=== PATIENT | female | born 1945 | race Caucasian/White ===

== ENCOUNTER 2017-01-18 10:48 | Emergency (ER) | payer BC ==
[~2017-01-18] VITALS: Ht 162.6 cm; Wt 91.4 kg
[~2017-01-18 10:48] MED LIST: BUPR-79 PO; CETI10TA10 PO; CHOL2000 PO; HYDC25 PO; LISI-729 PO; PARO1TAB27 PO; PRLSR20 PO; TRIA1SPR2 NAE
[2017-01-18 10:56] VITALS: TEMP 36.7; Ht 162.6 cm; Wt 91.4 kg
[2017-01-18] MEDS ORDERED: SODIUM CHLORIDE 0.9% 1000ML 1,000 ML IV STA (11:15)
[2017-01-18] MEDS ORDERED: CHOLESTYRAMINE LIGHT 4 GM PKT PO STA (11:15)
[2017-01-18] MEDS ORDERED: ONDANSETRON INJ 2 MG/ML 2 ML VIAL IV STA (11:15)
[2017-01-18] MEDS ORDERED: TRIA1SPR4 NAE (11:26)
[2017-01-18] MEDS ORDERED: VNTHFA/IN INH (11:26)
[2017-01-18] MEDS ORDERED: SYMIN160 INH (11:26)
[2017-01-18] MEDS ORDERED: OMEG10007 PO (11:26)
[2017-01-18] MEDS ORDERED: PRAV40TA2 PO (11:26)
[2017-01-18] MEDS ORDERED: LISI-461 PO (11:26)
[2017-01-18] MEDS ORDERED: HYDR25TA5 PO (11:26)
[2017-01-18] MEDS ORDERED: ALBU18002 INH (11:26)
[2017-01-18] MEDS ORDERED: PRX/40 PO (11:26)
--- NOTE | 2017-01-18 11:36 | EMERGENCY ROOM VISIT NOTE ---
History Report prepared by Sherman: Jeremy Darling Under the Supervision of: Dr. Carlyle Srivastava M.D. First contact with patient: 11:02 Chief Complaint: DIARRHEA Stated Complaint: DIARRHEA Nursing Triage Summary: Pt reports diarrhea since Sunday, has been black but wasn't this morning, denies abdominal pain today, did have it last night "it was cramping like I just knew I had to go to the bathroom". Patient associated nausea and loss of appetite. Denies use of blood thinners except fish oil History of Present Illness The patient is a 71 year old female who presents to the Emergency Room with complaints of intermittent diarrhea for the past two days. She states that she is having diarrhea more than once every hour. Additionally, the patient states that she was having some abdominal pain. She denies taking any recent antibiotics, and she states that no one else around her is sick. She states that she has not had any questionable food sources. Source of History: patient Onset: two days ago Position: other (global) Quality: other (diarrhea) Timing: intermittent Associated Symptoms: + abdominal pain Review of Systems See HPI for pertinent positives & negatives. A total of 10 systems reviewed and were otherwise negative. Past Medical & Surgical Medical Problems: (1) Benign essential hypertension (2) DIAB ZHEN WO COMPL, TYPE II OR UNSPEC TYPE, NOT UNCNTRLD (3) Gastroesophageal reflux disease (4) History of polyp of colon (5) Hyperlipidemia (6) Spinal stenosis of lumbar region Family History Diabetes mellitus Social History Smoking Status: Former Smoker Alcohol Use: occasionally Drug Use: none Marital Status: Occupation Status: unemployed Current/Historical Medications Scheduled Albuterol Hfa (Ventolin Hfa), 2 PUFFS INH QID Budesonide/Formoterol Fumarate (Symbicort 160/4.5 Inhaler), 2 PUFFS INH BID Bupropion (Wellbutrin Sr), 150 MG PO BID Cetirizine Hcl (Zyrtec), 10 MG PO QAM Fish Oil (Sherwood-3), 1 CAP PO DAILY Hydrochlorothiazide (Hydrochlorothiazide), 12.5 MG PO DAILY Lisinopril (Lisinopril), 1 TAB PO DAILY Omeprazole (Prilosec), 20 MG PO QAM Paroxetine (Paroxetine HCl), 1 TAB PO DAILY Pravastatin Sodium (Pravastatin Sodium), 1 TAB PO DAILY Triamcinolone Acetonide (Nasal (Nasacort Allergy 24Hr), 1 SPRAY SEBLE DAILY Allergies Coded Allergies: Quetiapine (Verified Adverse Reaction, Severe, N/V, 01/18/17) Uncoded Allergies: EPIDURAL (Allergy, Severe, SEVERE ITCHING EVERYWHERE, 06/15/11) CHASE ALVARADO, NOTES NO ALLERGIES PER HER H&P ON 06/15/11. GP Physical Exam Vital Signs Date Time Temp Pulse Resp B/P (MAP) Pulse Ox O2 Delivery O2 Flow Rate FiO2 01/18/17 14:07 87 20 133/68 99 01/18/17 13:13 84 20 152/73 98 Room Air 01/18/17 13:05 86 01/18/17 10:56 36.7 101 20 114/71 95 Room Air Physical Exam GENERAL: Patient is a healthy-appearing well-nourished female HEAD: Normocephalic atraumatic EYES: Ocular movements intact pupils equal and react to light OROPHARYNX mucous membranes are moist no exudates present no erythema or edema present NECK: Supple no nuchal rigidity CHEST: Good equal expansion LUNGS: Clear and equal to auscultation CARDIAC: Normal S1 and S2 ABDOMEN: Soft nontender no guarding BACK: No CVA tenderness EXTREMITIES: No pain upon palpation normal muscle strength in all groups no clubbing cyanosis or edema NEURO: Patient is following commands and answering questions appropriately. Alert and oriented x3 Cranial Nerves 2-12 grossly intact Medical Decision & Procedures Laboratory Results 01/18/17 11:44 Red Blood Count 4.33, Mean Corpuscular Volume 91.5, Mean Corpuscular Hemoglobin 31.6, Mean Corpuscular Hemoglobin Concent 34.6, Mean Platelet Volume 9.5, Neutrophils (%) (Auto) 72.4, Lymphocytes (%) (Auto) 17.3, Monocytes (%) (Auto) 9.6, Eosinophils (%) (Auto) 0.3, Basophils (%) (Auto) 0.3, Neutrophils # (Auto) 5.14, Lymphocytes # (Auto) 1.23, Monocytes # (Auto) 0.68, Eosinophils # (Auto) 0.02, Basophils # (Auto) 0.02 01/18/17 11:44 Test 01/18/17 11:44 01/18/17 13:15 White Blood Count 7.10 K/uL (4.8-10.8) Red Blood Count 4.33 M/uL (4.2-5.4) Hemoglobin 13.7 g/dL (12.0-16.0) Hematocrit 39.6 % (37-47) Mean Corpuscular Volume 91.5 fL (80-100) Mean Corpuscular Hemoglobin 31.6 pg (25-34) Mean Corpuscular Hemoglobin Concent 34.6 g/dl (32-36) Platelet Count 277 K/uL (130-400) Mean Platelet Volume 9.5 fL (7.4-10.4) Neutrophils (%) (Auto) 72.4 % Lymphocytes (%) (Auto) 17.3 % Monocytes (%) (Auto) 9.6 % Eosinophils (%) (Auto) 0.3 % Basophils (%) (Auto) 0.3 % Neutrophils # (Auto) 5.14 K/uL (1.4-6.5) Lymphocytes # (Auto) 1.23 K/uL (1.2-3.4) Monocytes # (Auto) 0.68 K/uL (0.11-0.59) Eosinophils # (Auto) 0.02 K/uL (0-0.5) Basophils # (Auto) 0.02 K/uL (0-0.2) RDW Standard Deviation 50.0 fL (36.4-46.3) RDW Coefficient of Variation 14.8 % (11.5-14.5) Immature Granulocyte % (Auto) 0.1 % Immature Granulocyte # (Auto) 0.01 K/uL (0.00-0.02) Anion Gap 8.0 mmol/L (3-11) Est Creatinine Clear Calc Drug Dose 81.9 ml/min Estimated GFR () 100.7 Estimated GFR (Non- 86.9 BUN/Creatinine Ratio 22.0 (10-20) Calcium Level 8.8 mg/dl (8.5-10.1) Total Bilirubin 0.4 mg/dl (0.2-1) Direct Bilirubin 0.1 mg/dl (0-0.2) Aspartate Amino Transf (AST/SGOT) 17 U/L (15-37) Alanine Aminotransferase (ALT/SGPT) 42 U/L (12-78) Alkaline Phosphatase 121 U/L (45-117) Total Protein 7.6 gm/dl (6.4-8.2) Albumin 3.6 gm/dl (3.4-5.0) Lipase 189 U/L (73-393) Urine Color DK YELLOW Urine Appearance CLEAR (CLEAR) Urine pH 5.5 (4.5-7.5) Urine Specific [employer] 1.023 (1.000-1.030) Urine Protein NEG (NEG) Urine Glucose (UA) NEG (NEG) Urine Ketones NEG (NEG) Urine Occult Blood 1+ (NEG) Urine Nitrite POS (NEG) Urine Bilirubin NEG (NEG) Urine Urobilinogen NEG (NEG) Urine Leukocyte Esterase TRACE (NEG) Urine WBC (Auto) 5-10 /hpf (0-5) Urine RBC (Auto) 10-30 /hpf (0-4) Urine Hyaline Casts (Auto) 1-5 /lpf (0-5) Urine Epithelial Cells (Auto) 10-20 /lpf (0-5) Urine Bacteria (Auto) 4+ (NEG) Labs reviewed by ED physician. Medications Administered Medications (Trade) Dose Ordered Sig/Evelyn Route Start Time Stop Time Status Last Admin Dose Admin Sodium Chloride 1,000 ml @ 999 mls/hr Q1H1M STAT IV 01/18/17 11:15 01/18/17 12:15 DC 01/18/17 11:50 999 MLS/HR Ondansetron HCl (Zofran Inj) 4 mg NOW STAT IV 01/18/17 11:15 01/18/17 11:17 DC 01/18/17 11:50 4 MG ED Course 1102: Past medical records reviewed. The patient was evaluated in room C7. A complete history and physical examination was performed. 1115: Zofran Inj 4mg IV, Sodium Chloride 1000 ml @ 999 mls/hr IV 1259: Upon reexamination the patient is feeling well. I discussed results and treatment plan with the patient. She verbalizes agreement and understanding. The patient is ready for discharge. Medical Decision Differential diagnosis: Etiologies such as appendicitis, diverticulitis, PUD, biliary pathology, UTI, pancreatitis, obstruction, mesenteric ischemia, aortic pathology, infections, inflammatory bowel disease, renal colic, as well as others were entertained. Blood Pressure Screening: Patient was found to have normal blood pressure on screening and does not require follow up. Medication Reconciliation: I attest that I have personally reviewed the patient' s current medication list This is a 71-year-old female who presents emergency department complaining of diarrhea. I will note that the three-hour time. The patient wasn't able to provide a stool sample entire time she was in the emergency department. In addition she has a normal CBC normal renal profile normal liver profile. His. She wishes to be discharged home. She was given cholestyramine normal saline bolus. Serial abdominal examinations were performed on the patient in the emergency department and no tended patient exhibit a surgical abdomen. I do feel that the patient is well enough to be discharged home. Patient was in agreement with the treatment plan. Impression Primary Impression: Diarrhea Scribe Attestation The scribe's documentation has been prepared under my direction and personally reviewed by me in its entirety. I confirm that the note above accurately reflects all work, treatment, procedures, and medical decision making performed by me. Departure Information Dispostion Home / Self-Care Referrals No Doctor, Assigned (PCP) Forms HOME CARE DOCUMENTATION FORM, IMPORTANT VISIT INFORMATION, WORK / SCHOOL INSTRUCTIONS Patient Instructions ED Vomiting Diarrhea Nonspecific Ad, My [facility] Additional Instructions Take probiotics for diarrhea Culture results are usually available in approx 48 hours You have been examined and treated today on an emergency basis only. This is not a substitute for, or an effort to provide, complete comprehensive medical care. It is impossible to recognize and treat all injuries or illnesses in a single emergency department visit. It is therefore important that you follow up closely with Dr Cha. Call as soon as possible for an appointment. Thank you for your time and consideration. I look forward to speaking with you again soon. Please don't hesitate to call us if you have any questions. Problem Qualifiers Primary Impression: Diarrhea Diarrhea type: unspecified type Qualified Codes: R19.7 - Diarrhea, unspecified
[2017-01-18 12:00] LABS: BASO % 0.3 %; BASO ABS # 0.02 K/uL (0-0.2); COMPLETE YES; EOS % 0.3 %; HEMATOCRIT 39.6 % (37-47); IG% 0.1 %; LYMPH % 17.3 %; LYMPH ABS # 1.23 K/uL (1.2-3.4); MEAN CELL VOLUME 91.5 fL (80-100); MEAN CORPUSCULAR HEMOGLOBIN 31.6 pg (25-34); MEAN CORPUSCULAR HGB CONC 34.6 g/dl (32-36); MEAN PLATELET VOLUME 9.5 fL (7.4-10.4); MONO % 9.6 %; NEUT % 72.4 %; PLATELET COUNT 277 K/uL (130-400); RED BLOOD COUNT 4.33 M/uL (4.2-5.4)
[2017-01-18 12:32] LABS: CALCIUM 8.8 mg/dl (8.5-10.1); CREATININE 0.71 mg/dl (0.60-1.20); POTASSIUM 3.8 mmol/L (3.5-5.1)
[2017-01-18 13:40] LABS: URINE APPEARANCE CLEAR (CLEAR); URINE BILIRUBIN NEG (NEG); URINE COLOR DK YELLOW; URINE NITRITE POS (NEG); URINE PH 5.5 (4.5-7.5); URINE SPECIFIC GRAVITY 1.023 (1.000-1.030); UROBILINOGEN NEG (NEG)
[2017-01-18 13:43] LABS: MANUAL MICROSCOPIC REQUIRED? NO; REVIEW REQ? NO
[2017-01-18 14:07] VITALS: BP 133/68; PULSE 87; O2SAT 99
[2017-01-19] MEDS ORDERED: CIPR-255 PO (12:31)
[2017-01-19] MEDS ORDERED: METR-163 PO (12:31)
[2017-01-29] MEDS ORDERED: MECL1TAB40 PO (11:39)
== END 2017-01-18 14:08 | disposition home or self-care (01) ==
LOC: C.EDB 10:49 → C.EDC 14:08
DX: R19.7 Diarrhea, unspecified (principal); I10 Essential (primary) hypertension; E11.9 Type 2 diabetes mellitus without complications; E78.5 Hyperlipidemia, unspecified; K21.9 Gastro-esophageal reflux disease without esophagitis; Z87.891 Personal history of nicotine dependence; Z79.899 Other long term (current) drug therapy; Z88.8 Allergy status to other drugs, medicaments and biological substances; Z83.3 Family history of diabetes mellitus

== ENCOUNTER 2017-01-19 06:28 | Emergency (ER) | payer BC ==
[~2017-01-19] VITALS: Ht 162.6 cm; Wt 90.7 kg
[~2017-01-19 06:28] MED LIST changes: -CHOL2000 PO; -HYDC25 PO; +HYDR25TA5 PO; +LISI-461 PO; -LISI-729 PO; +OMEG10007 PO; -PARO1TAB27 PO; +PRAV40TA2 PO; +PRX/40 PO; +SYMIN160 INH; -TRIA1SPR2 NAE; +TRIA1SPR4 NAE; +VNTHFA/IN INH
[2017-01-19 06:35] VITALS: TEMP 36.8; Ht 162.6 cm; Wt 90.7 kg
[2017-01-19] MEDS ORDERED: SODIUM CHLORIDE 0.9% 1000ML 1,000 ML IV STA (06:42)
[2017-01-19 06:53] LABS: BASO % 0.3 %; BASO ABS # 0.02 K/uL (0-0.2); COMPLETE YES; EOS % 0.6 %; HEMATOCRIT 38.7 % (37-47); LYMPH % 39.5 %; LYMPH ABS # 2.51 K/uL (1.2-3.4); MEAN CELL VOLUME 90.6 fL (80-100); MEAN CORPUSCULAR HEMOGLOBIN 30.7 pg (25-34); MEAN CORPUSCULAR HGB CONC 33.9 g/dl (32-36); MEAN PLATELET VOLUME 9.4 fL (7.4-10.4); MONO % 10.8 %; NEUT % 48.8 %; PLATELET COUNT 313 K/uL (130-400); RED BLOOD COUNT 4.27 M/uL (4.2-5.4); WHITE BLOOD COUNT 6.36 K/uL (4.8-10.8)
[2017-01-19] MEDS ORDERED: OPTIRAY 320 IV PRN (07:00)
[2017-01-19 07:02] LABS: PROTHROMBIN TIME (PATIENT) 10.9 SECONDS (9.0-12.0)
[2017-01-19 07:05] LABS: ALT/SGPT 41 U/L (12-78); BLOOD UREA NITROGEN 17 mg/dl (7-18); CALCIUM 9.3 mg/dl (8.5-10.1); CARBON DIOXIDE 23 mmol/L (21-32); CHLORIDE 106 mmol/L (98-107); CREATININE 0.79 mg/dl (0.60-1.20); GLUCOSE 133 mg/dl (70-99); POTASSIUM 3.7 mmol/L (3.5-5.1); SODIUM 138 mmol/L (136-145)
[2017-01-19 07:10] LABS: ALKALINE PHOSPHATASE 111 U/L (45-117); AST/SGOT 22 U/L (15-37)
--- NOTE | 2017-01-19 08:16 | DIAGNOSTIC IMAGING REPORT ---
CT ABD/PELVIS IV CONTRAST ONLY CLINICAL HISTORY: bloody diarrhea COMPARISON STUDY: None. TECHNIQUE: Following the IV administration of 118 mL of Optiray-320, CT scan of the abdomen and pelvis was performed from the lung bases to the proximal femurs. Images are reviewed in the axial, sagittal, and coronal planes. IV contrast was administered without complication. CT DOSE: 924.60 mGy.cm FINDINGS: Lower chest: There are dependent bibasilar opacities, likely atelectatic. Liver: There is a 9 mm hypodensity within the right lobe of the liver. This approaches water attenuation and is likely benign. Gallbladder: Unremarkable. Spleen: Normal in size and attenuation. Pancreas: Unremarkable. Adrenal glands: Unremarkable. Kidneys: There is symmetric renal cortical enhancement. The kidneys are normal in size without hydronephrosis. Bowel: There are no transition zones indicate bowel obstruction. There is scattered colonic diverticula present. There are no findings to indicate acute appendicitis. There is mild colonic wall thickening, most pronounced within the left colon. The findings are indicative of a nonspecific colitis. Peritoneum: There is no intraperitoneal free air or abdominal ascites. Vasculature: The abdominal aorta is normal in course and caliber. Adenopathy: None. Pelvic viscera: The uterus appears surgically absent. Skeletal structures: There are postsurgical changes of a lumbar spinal fusion. IMPRESSION: 1. No evidence of bowel obstruction. No evidence of free air 2. Mild colonic wall thickening, most pronounced in the left colon. The findings are indicative of a nonspecific colitis. Electronically signed by: Malik Glover M.D. 01/19/2017 8:15 AM Dictated Date/Time: 01/19/2017 8:11 AM
[2017-01-19] MEDS ORDERED: SODIUM CHLORIDE 0.9% 500ML 500 ML IV STA (09:07)
[2017-01-19 10:50] LABS: MANUAL MICROSCOPIC REQUIRED? NO; REVIEW REQ? NO; URINE APPEARANCE CLEAR (CLEAR); URINE BILIRUBIN NEG (NEG); URINE COLOR YELLOW; URINE NITRITE POS (NEG); URINE SPECIFIC GRAVITY > 1.045 (1.000-1.030); UROBILINOGEN NEG (NEG)
[2017-01-19 11:12] VITALS: O2SAT 88
[2017-01-19] MEDS ORDERED: CIPROFLOXACIN 500 MG TAB PO STA (12:26)
[2017-01-19] MEDS ORDERED: METRONIDAZOLE 250 MG TAB PO STA (12:26)
[2017-01-19] MEDS ORDERED: CIPR-255 PO (12:31)
[2017-01-19] MEDS ORDERED: METR-163 PO (12:31)
[2017-01-19 12:43] VITALS: BP 135/60; PULSE 74; O2SAT 97
--- NOTE | 2017-01-19 15:36 | EMERGENCY ROOM VISIT NOTE ---
History Report prepared by Vicenteibqian: Morris Conteh Under the Supervision of: Dr. Gary Bass M.D. First contact with patient: 06:37 Chief Complaint: GI ASSESSMENT Stated Complaint: GI BLEED Nursing Triage Summary: c/o black liquid stools on sunday. pt was seen here yesterday and sent home. pt woke up this am and her depends was full of black stool. pt also reports "It feels like there is a ball in my rectum." History of Present Illness The patient is a 71 year old female who presents to the Emergency Room with complaints of persistent rectal bleeding beginning three days ago. She describes the color of her stool as "black". She notes that she took Pepto Bismol two days ago, but this was after her symptoms began. The patient also states "there is a ball coming out of my rectum". She also complains of dizziness, diarrhea and abdominal pain. She notes that her dizziness is chronic for which she takes Meclizine. The patient was seen in the ED yesterday for diarrhea and states that her symptoms are "the exact same". Pt denies LOC, headache, fevers, chills, diaphoresis, visual changes, neck pain, chest pain, breathing difficulties, nausea, vomiting, back pain, urinary symptoms, numbness , weakness, lymphadenopathy, rash, or other complaints. Source of History: patient Onset: Three days ago Position: other (rectum) Quality: other (bleeding) Timing: other (persistent) Associated Symptoms: + abdominal pain, + diarrhea, No fevers, No headache, No chest pain, No SOB, No nausea, No vomiting Review of Systems See HPI for pertinent positives and negatives. A total of ten systems were reviewed and were otherwise negative. Past Medical & Surgical Medical Problems: (1) Benign essential hypertension (2) DIAB ZHEN WO COMPL, TYPE II OR UNSPEC TYPE, NOT UNCNTRLD (3) Gastroesophageal reflux disease (4) History of polyp of colon (5) Hyperlipidemia (6) Spinal stenosis of lumbar region Family History Diabetes mellitus Social History Smoking Status: Former Smoker Alcohol Use: occasionally Drug Use: none Marital Status: Occupation Status: unemployed Current/Historical Medications Scheduled Albuterol Hfa (Ventolin Hfa), 2 PUFFS INH QID Budesonide/Formoterol Fumarate (Symbicort 160/4.5 Inhaler), 2 PUFFS INH BID Bupropion (Wellbutrin Sr), 150 MG PO BID Cetirizine Hcl (Zyrtec), 10 MG PO QAM Ciprofloxacin Hcl (Cipro), 500 MG PO BID Fish Oil ([place]-3), 1 CAP PO DAILY Hydrochlorothiazide (Hydrochlorothiazide), 12.5 MG PO DAILY Lisinopril (Lisinopril), 1 TAB PO DAILY Metronidazole (Flagyl), 500 MG PO TID Omeprazole (Prilosec), 20 MG PO QAM Paroxetine (Paroxetine HCl), 1 TAB PO DAILY Pravastatin Sodium (Pravastatin Sodium), 1 TAB PO DAILY Triamcinolone Acetonide (Nasal (Nasacort Allergy 24Hr), 1 SPRAY SEBLE DAILY Allergies Coded Allergies: Quetiapine (Verified Adverse Reaction, Severe, N/V, 01/19/17) Uncoded Allergies: EPIDURAL (Allergy, Severe, SEVERE ITCHING EVERYWHERE, 06/15/11) CHASE ALVARADO, NOTES NO ALLERGIES PER HER H&P ON 06/15/11. GP Physical Exam Vital Signs Date Time Temp Pulse Resp B/P (MAP) Pulse Ox O2 Delivery O2 Flow Rate FiO2 01/19/17 12:43 74 16 135/60 97 01/19/17 11:12 93 Nasal Cannula 2.0 01/19/17 11:12 88 Room Air 01/19/17 10:13 84 19 96 Room Air 01/19/17 10:08 154/85 01/19/17 09:43 81 17 92 01/19/17 09:13 79 17 01/19/17 08:43 82 18 94 01/19/17 08:38 82 17 93 Room Air 01/19/17 08:33 80 20 94 Room Air 01/19/17 08:28 81 16 93 Room Air 01/19/17 08:23 83 15 92 Room Air 01/19/17 08:22 82 01/19/17 08:20 136/76 01/19/17 08:05 95 Room Air 01/19/17 06:35 36.8 87 20 154/78 95 Room Air Physical Exam GENERAL: Awake, alert, well-appearing, in no distress HENT: Normocephalic, atraumatic. Oropharynx unremarkable. EYES: Normal conjunctiva. Sclera non-icteric. NECK: Supple. No nuchal rigidity. FROM. No JVD. RESPIRATORY: Clear to auscultation. CARDIAC: Regular rate, normal rhythm. Extremities warm and well perfused. Pulses equal. ABDOMEN: Soft, non-distended. LLQ and suprapubic tenderness to palpation. No rebound or guarding. No masses. RECTAL: Minimal hemorrhoidal disease present. Perirectal irritation but no signs of infection. Dark stool, heme positive. MUSCULOSKELETAL: Chest examination reveals no tenderness. The back is symmetrical on inspection without obvious abnormality. There is no CVA tenderness to palpation. No joint edema. LOWER EXTREMITIES: Calves are equal size bilaterally and non-tender. No edema. No discoloration. NEURO: Normal sensorium. No sensory or motor deficits noted. SKIN: No rash or jaundice noted. Medical Decision & Procedures ER Provider Diagnostic Interpretation: CT: Radiology results as stated below per my review and radiologist interpretation CT ABD/PELVIS IV CONTRAST ONLY FINDINGS: Lower chest: There are dependent bibasilar opacities, likely atelectatic. Liver: There is a 9 mm hypodensity within the right lobe of the liver. This approaches water attenuation and is likely benign. Gallbladder: Unremarkable. Spleen: Normal in size and attenuation. Pancreas: Unremarkable. Adrenal glands: Unremarkable. Kidneys: There is symmetric renal cortical enhancement. The kidneys are normal in size without hydronephrosis. Bowel: There are no transition zones indicate bowel obstruction. There is scattered colonic diverticula present. There are no findings to indicate acute appendicitis. There is mild colonic wall thickening, most pronounced within the left colon. The findings are indicative of a nonspecific colitis. Peritoneum: There is no intraperitoneal free air or abdominal ascites. Vasculature: The abdominal aorta is normal in course and caliber. Adenopathy: None. Pelvic viscera: The uterus appears surgically absent. Skeletal structures: There are postsurgical changes of a lumbar spinal fusion. IMPRESSION: 1. No evidence of bowel obstruction. No evidence of free air 2. Mild colonic wall thickening, most pronounced in the left colon. The findings are indicative of a nonspecific colitis Electronically signed by: Malik Glover M.D. Laboratory Results 01/19/17 06:12 Red Blood Count 4.27, Mean Corpuscular Volume 90.6, Mean Corpuscular Hemoglobin 30.7, Mean Corpuscular Hemoglobin Concent 33.9, Mean Platelet Volume 9.4, Neutrophils (%) (Auto) 48.8, Lymphocytes (%) (Auto) 39.5, Monocytes (%) (Auto) 10.8, Eosinophils (%) (Auto) 0.6, Basophils (%) (Auto) 0.3, Neutrophils # (Auto ) 3.10, Lymphocytes # (Auto) 2.51, Monocytes # (Auto) 0.69, Eosinophils # (Auto ) 0.04, Basophils # (Auto) 0.02 01/19/17 06:12 Test 01/19/17 06:12 01/19/17 06:42 01/19/17 09:19 01/19/17 10:10 White Blood Count 6.36 K/uL (4.8-10.8) Red Blood Count 4.27 M/uL (4.2-5.4) Hemoglobin 13.1 g/dL (12.0-16.0) Hematocrit 38.7 % (37-47) Mean Corpuscular Volume 90.6 fL (80-100) Mean Corpuscular Hemoglobin 30.7 pg (25-34) Mean Corpuscular Hemoglobin Concent 33.9 g/dl (32-36) Platelet Count 313 K/uL (130-400) Mean Platelet Volume 9.4 fL (7.4-10.4) Neutrophils (%) (Auto) 48.8 % Lymphocytes (%) (Auto) 39.5 % Monocytes (%) (Auto) 10.8 % Eosinophils (%) (Auto) 0.6 % Basophils (%) (Auto) 0.3 % Neutrophils # (Auto) 3.10 K/uL (1.4-6.5) Lymphocytes # (Auto) 2.51 K/uL (1.2-3.4) Monocytes # (Auto) 0.69 K/uL (0.11-0.59) Eosinophils # (Auto) 0.04 K/uL (0-0.5) Basophils # (Auto) 0.02 K/uL (0-0.2) RDW Standard Deviation 48.4 fL (36.4-46.3) RDW Coefficient of Variation 14.7 % (11.5-14.5) Immature Granulocyte % (Auto) 0.0 % Immature Granulocyte # (Auto) 0.00 K/uL (0.00-0.02) Prothrombin Time 10.9 SECONDS (9.0-12.0) Prothromb Time International Ratio 1.0 (0.9-1.1) Activated Partial Thromboplast Time 27.1 SECONDS (21.0-31.0) Partial Thromboplastin Ratio 1.0 Anion Gap 9.0 mmol/L (3-11) Est Creatinine Clear Calc Drug Dose 73.3 ml/min Estimated GFR () 88.5 Estimated GFR (Non- 76.4 BUN/Creatinine Ratio 22.0 (10-20) Calcium Level 9.3 mg/dl (8.5-10.1) Total Bilirubin 0.3 mg/dl (0.2-1) Direct Bilirubin 0.1 mg/dl (0-0.2) Aspartate Amino Transf (AST/SGOT) 22 U/L (15-37) Alanine Aminotransferase (ALT/SGPT) 41 U/L (12-78) Alkaline Phosphatase 111 U/L (45-117) Creatine Kinase MB 0.8 ng/ml (0.5-3.6) Troponin I < 0.015 ng/ml (0-0.045) Total Protein 7.6 gm/dl (6.4-8.2) Albumin 3.6 gm/dl (3.4-5.0) Lipase 258 U/L (73-393) Creatine Kinase MB Ratio (0-3.0) Bedside Lactic Acid Venous 0.32 mmol/L (0.90-1.70) Urine Color YELLOW Urine Appearance CLEAR (CLEAR) Urine pH 6.0 (4.5-7.5) Urine Specific [place] > 1.045 (1.000-1.030) Urine Protein NEG (NEG) Urine Glucose (UA) NEG (NEG) Urine Ketones NEG (NEG) Urine Occult Blood TRACE (NEG) Urine Nitrite POS (NEG) Urine Bilirubin NEG (NEG) Urine Urobilinogen NEG (NEG) Urine Leukocyte Esterase NEG (NEG) Urine WBC (Auto) 1-5 /hpf (0-5) Urine RBC (Auto) 0-4 /hpf (0-4) Urine Hyaline Casts (Auto) 1-5 /lpf (0-5) Urine Epithelial Cells (Auto) 10-20 /lpf (0-5) Urine Bacteria (Auto) 4+ (NEG) Laboratory results reviewed by me Medications Administered Medications (Trade) Dose Ordered Sig/Evelyn Route Start Time Stop Time Status Last Admin Dose Admin Sodium Chloride 1,000 ml @ 999 mls/hr Q1H1M STAT IV 01/19/17 06:42 01/19/17 07:42 DC 01/19/17 07:00 999 MLS/HR Sodium Chloride 500 ml @ 999 mls/hr Q31M STAT IV 01/19/17 09:07 01/19/17 09:37 DC 01/19/17 11:00 999 MLS/HR Ciprofloxacin (Cipro Tab) 500 mg NOW STAT PO 01/19/17 12:26 01/19/17 12:28 DC 01/19/17 12:42 500 MG Metronidazole (Flagyl Tab) 500 mg NOW STAT PO 01/19/17 12:26 01/19/17 12:28 DC 01/19/17 12:42 500 MG ECG Indication: abdominal pain Rate (beats per minute): 81 Rhythm: normal sinus Findings: no acute ischemic change, no ectopy ED Course 0642: The patient was evaluated in room B6. A complete history and physical exam was performed. Ordered Sodium Chloride 1000 ml @ 999 mls/hr IV. 0907: Ordered Sodium Chloride 500 ml @ 999 mls/hr IV. 1000: I reassessed the patient. She appears comfortable. 1226: Ordered Flagyl Tab 500 mg PO, Cipro Tab 500 mg PO. 1230: I reevaluated the patient. Discussed results and discharge instructions: she verbalized understanding and agreement. The patient is ready for discharge. Medical Decision Triage Nursing notes reviewed. The patient's presentation and history were concerning for diarrhea and bloody stool. Etiologies such as colitis, hemorrhoidal disease, gastroenteritis, food borne illness, infections, obstruction, pancreatitis, appendicitis, diverticulitis, inflammatory bowel disease, GI bleed, biliary pathology, toxicologic as well as others were entertained. The patient was evaluated. She noted some bulging from her rectum. Rectal examination revealed some mild old-appearing external hemorrhoid. There is no sign of infection or fissure. There is no thrombosis. No obvious extruding internal hemorrhoids. By the patient's history and description it sounds similar to an internal hemorrhoid that may have slightly prolapsed. It is not present now so the exact etiology of her disc prescribed bulge is unknown. She did have Hemoccult positive dark stools. She had some lower abdominal tenderness. Her CBC, chemistry panel and LFTs were unremarkable. The patient underwent CT imaging and this was concerning for a colitis. The patient was asked to produce a stool sample as she was unable to do so yesterday in the emergency department. The patient was observed. Her UA is concerning for infection. I did consult with GI. They agreed with Cipro and Flagyl as we have to treat empirically. This should cover her urine as well as colitis. The patient will follow-up with her primary physician. If She worsens in any way she will be back. The patient's lactate is normal and her abdominal pain is very mild. She has no significant leukocytosis. I would favor a mild infectious colitis at this point. By the evaluation outlined above other emergent etiologies such as those listed in the differential, as well as others, were deemed relatively unlikely. The patient was educated about the findings as listed above. All questions were answered and the patient was pleased with the treatment. Return instructions were outlined and the patient was discharged in stable condition. The patient was referred to her PCP for follow-up for a recheck of the current condition. Blood pressure screening: Patient was found to have an elevated blood pressure and was referred to their primary doctor for recheck and further treatment. Medication Reconciliation: I attest that I have personally reviewed the patient' s current medication list Consults Time Called: 1150 Consulting Physician: Dr. Martins -ILAN Returned Call: [phone] Discussed the patient's case. Dr. Martins agrees with antibiotic treatment and recommends that the patient follow up in the office. Impression Primary Impression: Colitis Additional Impression: UTI (urinary tract infection) Scribe Attestation The scribe's documentation has been prepared under my direction and personally reviewed by me in its entirety. I confirm that the note above accurately reflects all work, treatment, procedures, and medical decision making performed by me. Departure Information Dispostion Home / Self-Care Prescriptions Metronidazole (Flagyl) 500 Mg Tab 500 MG PO TID, #29 TAB Prov: Gary Bass MD 01/19/17 Ciprofloxacin Hcl (CIPRO) 500 Mg Tab 500 MG PO BID, #19 TAB Prov: Gary Bass MD 01/19/17 Referrals Sanjuana Cha M.D. (PCP) Forms HOME CARE DOCUMENTATION FORM, IMPORTANT VISIT INFORMATION Patient Instructions My [facility] Additional Instructions DO NOT drive, drink alcohol, operate machinery, or perform dangerous activities today. You were given medications in the ER that can affect your ability to safely function or operate a vehicle. Ciprofloxacin(Cipro) 500mg: Take one pill twice daily for 10 days for your infection. All antibiotics can cause diarrhea. If this occurs and you feel worse or it does not resolve in 1-2 days follow up with your doctor or return to the Emergency Department as this could be signs of serious underlying problems. If you experience any pain in your tendons or any tendon injury return to the ER for re-evaluation. Any medication can cause an allergic reaction, stop the pills immediately and return to the ER for rash, hives, breathing difficulties, or swelling. Metronidazole(Flagyl) 500mg: Take one pill 3 times daily for 10 days for your infection. DO NOT drink alcohol or take alcohol containing products with this medication. Any medication can cause an allergic reaction, stop the pills immediately and return to the ER for rash, hives, breathing difficulties, or swelling. Acetaminophen(Tylenol) may be used for fever or pain. Use 1000mg every six hours as needed. Avoid using more than 4000mg in a 24 hour period. Rest and drink plenty of fluids as tolerated. Slow sips of water or sports drinks are recommended instead of large amounts all at once. Continue current medications. Once your stomach is settled start with a clear liquid diet (jello, soup broth, etc.) and then advance as tolerated. You should avoid full, heavy meals for about 24 hrs from the time your symptoms resolved. Return to the ER immediately for worsening or persistent abdominal pain, vomiting, fevers, chest pains, difficulty breathing, black or bloody stools, worsening of your condition, or as needed. Follow up with your primary physician Sunday for a recheck of your current condition. Discuss referral to gastroenterology. Problem Qualifiers
== END 2017-01-19 12:48 | disposition home or self-care (01) ==
LOC: EDBD 06:28 → C.EDB 06:29
DX: K52.9 Noninfective gastroenteritis and colitis, unspecified (principal); N39.0 Urinary tract infection, site not specified; I10 Essential (primary) hypertension; E11.9 Type 2 diabetes mellitus without complications; K21.9 Gastro-esophageal reflux disease without esophagitis; E78.5 Hyperlipidemia, unspecified; Z83.3 Family history of diabetes mellitus; Z87.891 Personal history of nicotine dependence

== ENCOUNTER 2017-01-29 22:13 | Emergency (ER) | payer BC ==
[~2017-01-29] VITALS: Ht 162.6 cm; Wt 90.2 kg
[~2017-01-29 22:13] MED LIST changes: +CIPR-255 PO; +MECL1TAB40 PO; +METR-163 PO
[2017-01-29 22:21] VITALS: TEMP 36.9; Ht 162.6 cm; Wt 90.2 kg
[2017-01-29] MEDS ORDERED: HYDROCODONE/ACETAMOPHEN 5/325MG TAB PO STA (22:31)
[2017-01-29] MEDS ORDERED: NYSTATIN CR 15 GM TUBE EXT STA (22:31)
--- NOTE | 2017-01-29 22:54 | EMERGENCY ROOM VISIT NOTE ---
History Report prepared by Sherman: Brandi Gonzalez Under the Supervision of: Dr. Verónica Geroges M.D. First contact with patient: 22:30 Chief Complaint: RECTAL PAIN Stated Complaint: RECTUM PAIN, VOMITING Nursing Triage Summary: Pt reports abdominal and rectal pain for past 2 weeks. Pt was seen here and Ct results showed inflammed colon. Pt was to have a colonoscopy tomorrow morning and began the prep at 1800. At 1930 pt with rectal pain 10/10 with nausea and vomiting. Pt also reports feeling something sticking out of her rectum. History of Present Illness The patient is a 71 year old female who presents to the Emergency Room with complaints of constant rectal pain and prolapse beginning 2 weeks ago. The patient states that she has had rectal for 2 weeks and was seen here and had an inflamed colon. She reports that she was scheduled to have a colonoscopy tomorrow morning and began prep 4 hours ago tonight. She complains of diarrhea and vomiting and nausea from the colonoscopy prep. The patient notes that movement and sitting worsen her pain. The patient rates her pain as a 10/10 in severity. Source of History: patient Onset: 2 weeks ago Position: other (rectum) Symptom Intensity: 10/10 Quality: other (prolapse) Associated Symptoms: + nausea, + vomiting, + diarrhea Review of Systems See HPI for pertinent positives & negatives. A total of 10 systems reviewed and were otherwise negative. Past Medical & Surgical Medical Problems: (1) Benign essential hypertension (2) DIAB ZHEN WO COMPL, TYPE II OR UNSPEC TYPE, NOT UNCNTRLD (3) Gastroesophageal reflux disease (4) History of polyp of colon (5) Hyperlipidemia (6) Spinal stenosis of lumbar region Family History Diabetes mellitus Social History Smoking Status: Former Smoker Alcohol Use: occasionally Drug Use: none Marital Status: Occupation Status: unemployed Current/Historical Medications Scheduled Albuterol Hfa (Ventolin Hfa), 2 PUFFS INH QID Bupropion (Wellbutrin Sr), 150 MG PO BID Fish Oil ([place]-3), 1 CAP PO QAM Hydrochlorothiazide (Hydrochlorothiazide), 12.5 MG PO QAM Lisinopril (Lisinopril), 1 TAB PO QAM Omeprazole (Prilosec), 20 MG PO QAM Pravastatin Sodium (Pravastatin Sodium), 1 TAB PO HS Scheduled PRN Budesonide/Formoterol Fumarate (Symbicort 160/4.5 Inhaler), 2 PUFFS INH BID PRN for Shortness of Breath Cetirizine Hcl (Zyrtec), 10 MG PO QAM PRN for ALLERGIES Meclizine HCl (Meclizine HCl), 1 TAB PO TID PRN for Dizziness or Vertigo Allergies Coded Allergies: Milk Protein Extract (Verified Allergy, Unknown, ITCHING, 01/29/17) Tiotropium (Verified Allergy, Unknown, ITCHING, 01/29/17) Quetiapine (Verified Adverse Reaction, Severe, N/V, 01/29/17) Uncoded Allergies: EPIDURAL (Allergy, Severe, SEVERE ITCHING EVERYWHERE, 06/15/11) CHASE ALVARADO, NOTES NO ALLERGIES PER HER H&P ON 06/15/11. GP Physical Exam Vital Signs Date Time Temp Pulse Resp B/P (MAP) Pulse Ox O2 Delivery O2 Flow Rate FiO2 01/29/17 23:40 84 22 164/91 94 01/29/17 23:06 84 22 164/91 94 Room Air 01/29/17 22:22 85 01/29/17 22:21 36.9 88 18 135/92 95 Room Air Physical Exam Vital signs reviewed. General: Well-appearing female, in no significant distress. HEENT: No scleral icterus, PERRLA, neck supple. Atraumatic. Cardiovascular: Regular rate and rhythm, no extra sounds. Pulmonary: Clear to auscultation bilaterally, normal work of breathing. Abdomen: Soft, nontender, nondistended, positive bowel sounds. Musculoskeletal: Atraumatic, no peripheral edema. Neurologic: Patient awake alert and oriented x 3, full strength in all 4 extremities. Cranial nerves 2 through 12 grossly intact. Skin: Warm, dry, no rash Rectal: Rectal prolapse on exam with some surrounding yeast dermatitis. Medical Decision & Procedures Medications Administered Medications (Trade) Dose Ordered Sig/Evelyn Route Start Time Stop Time Status Last Admin Dose Admin Nystatin (Mycostatin Crm) 1 appln NOW STAT EXT 01/29/17 22:31 01/29/17 22:38 DC 01/29/17 23:05 45 APPLN Acetaminophen/ Hydrocodone Bitart ([facility] 5/325 Tab) 1 tab NOW STAT PO 01/29/17 22:31 01/29/17 22:38 DC 01/29/17 23:05 1 TAB Acetaminophen/ Hydrocodone Bitart ([facility] 5/325mg Home Pack) 1 homepack UD ONCE PO 01/29/17 23:30 01/29/17 23:31 DC 01/29/17 23:30 1 HOMEPACK ED Course 2229: Past medical records reviewed. The patient was evaluated in room B6. A complete history and physical examination was performed. 2230: Hydrocodone.Bitart/Acetaminophen 1 tab PO, Nystatin 1 appln EXT. 2049: I spoke to Dr. Mckeon of GI. He says that she can go home and her colonoscopy needs to be cancelled but she will need that done for surgery. 2299: I reevaluated and updated the patient. 2329: Hydrocodone Bitart/Acetaminophen 1 homepack PO. 2331: Upon reevaluation, the patient appeared to have improvement of her symptoms. I discussed findings with the patient. She verbalized agreement of the treatment plan. The patient was discharged home. Medical Decision Differential diagnosis includes malignancy, rectal prolapse, perirectal abscess. hemorrhoids. This patient was evaluated and appeared to be in no significant distress. IV access was obtained and laboratory work was drawn. The patient was placed on quality assurance monitor and found to be in a normal sinus rhythm. On physical examination patient is found have a rectal prolapse. She also has a yeast dermatitis surrounding the rectum. Patient was given nystatin cream and the rectal prolapse was reduced. Patient had some relief of her discomfort however upon standing had an additional prolapse. The patient has refused additional prepped for colonoscopy, Dr. Key's office will be notified of her cancellation. Case management will also attempt to schedule an appointment with GI for tomorrow so that they misses the patient and follow-up planning for possible surgery. She does not seem to be able to reduce the prolapse herself, it does seem to re-prolapse each time she stands. Patient was discharged with a [facility] home pack. She was given instructions but remained somewhat anxious. She was reassured and case management was asked to evaluate the patient. The patient will return to the ER for worsening of symptoms or any medical concerns. Medication Reconcilliation Current Medication List: was personally reviewed by me Blood Pressure Screening Patient's blood pressure: Elevated blood pressure Blood pressure disposition: Elevated BP felt to be situational Consults Time Called: 2047 Consulting Physician: Dr. Mckeon - ILAN Returned Call: 2049 He says that she can go home and her colonoscopy needs to be cancelled but she will need that done for surgery. Impression Primary Impression: Rectal prolapse Scribe Attestation The scribe's documentation has been prepared under my direction and personally reviewed by me in its entirety. I confirm that the note above accurately reflects all work, treatment, procedures, and medical decision making performed by me. Departure Information Dispostion Home / Self-Care Referrals Sanjuana Cha M.D. (PCP) Forms HOME CARE DOCUMENTATION FORM, IMPORTANT VISIT INFORMATION, WORK / SCHOOL INSTRUCTIONS Patient Instructions ED Prolapse Rectal, My [facility] Additional Instructions Diagnosis: Rectal prolapse Hydrocodone 1 tab every 4-6 hours as needed for severe pain. Do not drive or take Tylenol with this medication. Call Dr. Key's office in the morning to inform him that you have chosen not to have colonoscopy tomorrow. You will need assistance from either Dr. Key's office or Dr. Cha's office for referral to surgery for rectal prolapse repair. Return to the emergency department for worsening of symptoms or any medical concerns.
[2017-01-29] MEDS ORDERED: NORCO 5/325MG HOME PACK PO ONE (23:30)
[2017-01-29 23:40] VITALS: BP 164/91; PULSE 84; O2SAT 94
== END 2017-01-29 23:40 | disposition home or self-care (01) ==
LOC: EDBD 22:13 → C.EDB 22:14
DX: K62.3 Rectal prolapse (principal); I10 Essential (primary) hypertension; E11.9 Type 2 diabetes mellitus without complications; K21.9 Gastro-esophageal reflux disease without esophagitis; E78.5 Hyperlipidemia, unspecified; M48.06 Spinal stenosis, lumbar region; Z86.010 Personal history of colon polyps; Z83.3 Family history of diabetes mellitus; Z87.891 Personal history of nicotine dependence; Z79.899 Other long term (current) drug therapy; B37.9 Candidiasis, unspecified

== ENCOUNTER → 2017-03-08 | Day surgery (SDC) | payer BC ==
[2017-02-28 09:07] VITALS: Ht 162.6 cm; Wt 80.9 kg
[~2017-03-08] VITALS: Ht 162.6 cm; Wt 80.9 kg
[~2017-03-08] MED LIST changes: -CIPR-255 PO; -METR-163 PO; -PRX/40 PO; -TRIA1SPR4 NAE
--- NOTE | 2017-03-08 15:26 | Endo History and Physical ---
History & Physical Date of Service: Mar 08, 2017. Chief Complaint: colitis Referring Physician: Dr. Sanjuana Cha History of Present Illness diarrhea Past Medical History Gastrointestinal Disorder, Gynecological Problems, Hypertension, Thyroid Disease , Depression Past Surgical History Hx Cardiac Surgery: No Hx Internal Defibrillator: No Hx Pacemaker: No Hx Abdominal Surgery: No Hx of Implantable Prosthesis: No Hx Post-Op Nausea and Vomiting: No Hx Cancer Surgery: No Hx Thoracic Surgery: No Hx Orthopedic: Yes (LT/RT TKA, LT/RT SHOULDER, BACK FUSION) Hx Urinary Tract Surgery: No Family History None Social History Smoking Status: Former Smoker Hx Substance Use: No Hx Alcohol Use: No Allergies Coded Allergies: Milk Protein Extract (Verified Allergy, Unknown, ITCHING, 02/28/17) Tiotropium (Verified Allergy, Unknown, ITCHING, 02/28/17) Quetiapine (Verified Adverse Reaction, Severe, N/V, 02/28/17) Uncoded Allergies: EPIDURAL (Allergy, Severe, SEVERE ITCHING EVERYWHERE, 06/15/11) CHASE ALVARADO, NOTES NO ALLERGIES PER HER H&P ON 06/15/11. GP Current Medications Reported Home Medications Medications Dose Route/Sig Max Daily Dose Days Date Category Meclizine HCl 12.5 Mg Tab 1 Tab PO TID PRN 01/29/17 Reported Hydrochlorothiazide 25 Mg Tab 12.5 Mg PO QAM 01/18/17 Reported Pravastatin Sodium 40 Mg Tab 1 Tab PO HS 01/18/17 Reported Ventolin Hfa (Albuterol) 200 Puffs/04979 Mcg Aers 2 Puffs INH QID 01/18/17 Reported Lisinopril 10 Mg Tab 1 Tab PO QAM 01/18/17 Reported Symbicort 160/4.5 Inhaler (Budesonide/Formoterol Fumarate) 120 Puffs/ Aero 2 Puffs INH BID PRN 01/18/17 Reported [place]-3 (Fish Oil) 1 Ea Cap 1 Cap PO QAM 01/18/17 Reported Zyrtec (Cetirizine Hcl) 10 Mg Tab 10 Mg PO QAM PRN 12/24/15 Reported Wellbutrin Sr (Bupropion HCl) 150 Mg Ertab 150 Mg PO BID 09/11/15 Reported Prilosec (Omeprazole) 20 Mg Capcr 20 Mg PO QAM 06/13/14 Reported Vital Signs Weight (Kilograms): 80.91 Height (Feet): 5 Height (Inches): 4 Date Time Temp Pulse Resp B/P (MAP) Pulse Ox O2 Delivery O2 Flow Rate FiO2 03/08/17 14:21 36.6 88 16 129/69 (89) 98 Room Air Physical Exam AAOx3 Nls12 Lungs CTA Abd soft NT/ND + BS - CCE Assessment and Plan colonoscopy
--- NOTE | 2017-03-08 16:01 | GI REPORT ---
Procedure Date: 03/08/2017 3:27 PM Procedure: Colonoscopy Indications: Clinically significant diarrhea of unexplained origin Medicines: Propofol per Anesthesia Complications: No immediate complications. Estimated blood loss: Minimal. Estimated Blood Loss: Estimated blood loss was minimal. Procedure: Pre-Anesthesia Assessment: - Prior to the procedure, a History and Physical was performed, and patient medications and allergies were reviewed. The patient's tolerance of previous anesthesia was also reviewed. The risks and benefits of the procedure and the sedation options and risks were discussed with the patient. All questions were answered, and informed consent was obtained. Prior Anticoagulants: The patient has taken no previous anticoagulant or antiplatelet agents. ASA Grade Assessment: III - A patient with severe systemic disease. After reviewing the risks and benefits, the patient was deemed in satisfactory condition to undergo the procedure. After I obtained informed consent, the scope was passed under direct vision. Throughout the procedure, the patient's blood pressure, pulse, and oxygen saturations were monitored continuously. The scope was introduced through the anus and advanced to the terminal ileum, with identification of the appendiceal orifice and IC valve. The colonoscopy was performed without difficulty. The patient tolerated the procedure well. The quality of the bowel preparation was good. Findings: The perianal and digital rectal examinations were normal. Pertinent negatives include normal sphincter tone, no palpable rectal lesions and no anal lesion or abnormality was detected. The colon (entire examined portion) appeared normal. The terminal ileum appeared normal. Biopsies were taken with a cold forceps for histology. Estimated blood loss was minimal. Verification of patient identification for the specimen was done by the physician and civilian technician using the patient's name and medical record number. The colon (entire examined portion) appeared normal. Biopsies were taken with a cold forceps for histology. Estimated blood loss was minimal. Verification of patient identification for the specimen was done by the physician and civilian technician using the patient's name and medical record number. The retroflexed view of the distal rectum and anal verge was normal and showed no anal or rectal abnormalities. Impression: - The entire examined colon is normal. - The examined portion of the ileum was normal. Biopsied. - The entire examined colon is normal. Biopsied. - The distal rectum and anal verge are normal on retroflexion view. Recommendation: - Discharge patient to home (ambulatory). - Patient has a contact number available for emergencies. The signs and symptoms of potential delayed complications were discussed with the patient. Return to normal activities tomorrow. Written discharge instructions were provided to the patient. - Resume regular diet. - Continue present medications. - Await pathology results. - Repeat colonoscopy for surveillance based on pathology results. - Return to referring physician as previously scheduled. MD Kd Raya MD 03/08/2017 3:59:59 PM This report has been signed electronically. Note Initiated On: 03/08/2017 3:27 PM I attest to the content of the Intraoperative Record and orders documented therein, exceptions below
--- NOTE | 2017-03-08 16:03 | Discharge Instructions ---
Endoscopy Patient Instructions Date / Procedure(s) Performed Mar 08, 2017. Colonoscopy Allergy Information Coded Allergies: Milk Protein Extract (Verified Allergy, Unknown, ITCHING, 02/28/17) Tiotropium (Verified Allergy, Unknown, ITCHING, 02/28/17) Quetiapine (Verified Adverse Reaction, Severe, N/V, 02/28/17) Uncoded Allergies: EPIDURAL (Allergy, Severe, SEVERE ITCHING EVERYWHERE, 06/15/11) CHASE ALVARADO, NOTES NO ALLERGIES PER HER H&P ON 06/15/11. GP Discharge Date / Findings Mar 08, 2017. Normal colonoscopy Medication Instructions Restart Stopped Medication(s): Reported Home Medications Medications Dose Route/Sig Max Daily Dose Days Date Category Meclizine HCl 12.5 Mg Tab 1 Tab PO TID PRN 01/29/17 Reported Hydrochlorothiazide 25 Mg Tab 12.5 Mg PO QAM 01/18/17 Reported Pravastatin Sodium 40 Mg Tab 1 Tab PO HS 01/18/17 Reported Ventolin Hfa (Albuterol) 200 Puffs/42748 Mcg Aers 2 Puffs INH QID 01/18/17 Reported Lisinopril 10 Mg Tab 1 Tab PO QAM 01/18/17 Reported Symbicort 160/4.5 Inhaler (Budesonide/Formoterol Fumarate) 120 Puffs/ Aero 2 Puffs INH BID PRN 01/18/17 Reported [place]-3 (Fish Oil) 1 Ea Cap 1 Cap PO QAM 01/18/17 Reported Zyrtec (Cetirizine Hcl) 10 Mg Tab 10 Mg PO QAM PRN 12/24/15 Reported Wellbutrin Sr (Bupropion HCl) 150 Mg Ertab 150 Mg PO BID 09/11/15 Reported Prilosec (Omeprazole) 20 Mg Capcr 20 Mg PO QAM 06/13/14 Reported Reported Home Medications Medications Dose Route/Sig Max Daily Dose Days Date Category Meclizine HCl 12.5 Mg Tab 1 Tab PO TID PRN 01/29/17 Reported Hydrochlorothiazide 25 Mg Tab 12.5 Mg PO QAM 01/18/17 Reported Pravastatin Sodium 40 Mg Tab 1 Tab PO HS 01/18/17 Reported Ventolin Hfa (Albuterol) 200 Puffs/33901 Mcg Aers 2 Puffs INH QID 01/18/17 Reported Lisinopril 10 Mg Tab 1 Tab PO QAM 01/18/17 Reported Symbicort 160/4.5 Inhaler (Budesonide/Formoterol Fumarate) 120 Puffs/ Aero 2 Puffs INH BID PRN 01/18/17 Reported [place]-3 (Fish Oil) 1 Ea Cap 1 Cap PO QAM 01/18/17 Reported Zyrtec (Cetirizine Hcl) 10 Mg Tab 10 Mg PO QAM PRN 12/24/15 Reported Wellbutrin Sr (Bupropion HCl) 150 Mg Ertab 150 Mg PO BID 09/11/15 Reported Prilosec (Omeprazole) 20 Mg Capcr 20 Mg PO QAM 06/13/14 Reported Provider Instructions Activity Restrictions - No exercising or heavy lifting for 24 hours. - Do not drink alcohol the day of the procedure. - Do not drive a car or operate machinery until the day after the procedure. - Do not make any important decisions or sign important papers in 24 hours after the procedure. Following Day: - Return to full activity which may include returning to work/school. Diet Start your diet with liquids and light foods (jello, soup, juice, toast). Then eat your usual diet if not nauseated. Treatment For Common After Affects For mild abdominal pain, bloating, or excessive gas: - Rest - Eat lightly - Lie on right side Follow-Up Information Follow-up with Dr. Sanjuana Cha as scheduled Anesthesia Information What You Should Know You have had a procedure that required some medicine to reduce anxiety and discomfort. This treatment is called moderate sedation. After receiving the treatment, you may be sleepy, but you will be able to breathe on your own. The effects of the treatment may last for several hours. Follow these instructions along with Activity/Diet recommendations noted above: * Do NOT do anything where dizziness or clumsiness would be dangerous. * Rest quietly at home today, then you can be up and about tomorrow. * Have a responsible person stay with you the rest of today. * You may have had an I.V. today. If so, you may take the dressing off later today. Recommendations Call your doctor if: * Trouble breathing * Continuous vomiting for more than 24 hours * Temperature above 101 degrees * Severe abdominal pain or bloating * Pain not relieved by pain medicine ordered * There is increased drainage or redness from any incision * A large amount of rectal bleeding greater than 2-3 tablespoons. (If you had a polyp/s removed or have hemorrhoids, a small amount of blood - from the rectum is to be expected.) * You have any unanswered questions or concerns. IN THE EVENT OF A SERIOUS EMERGENCY, GO TO THE NEAREST EMERGENCY ROOM Your discharge instructions were prepared by provider Kd Warren. Patient Instructions Signature Page Germán Solomon Patient (or Guardian) Signature/Date: I have read and understand the instructions given to me by my caregivers. Caregiver/RN/Doctor Signature/Date: The above-named patient and/or guardian has received patient instructions on this date. + Original Patient Signature Page (only) stays with chart. Please make copy for patient.
--- NOTE | 2017-03-08 16:22 | Anesthesiology Progress Note ---
Anesthesia Post Op Note Date & Time Mar 08, 2017 at 16:22 Vital Signs Pain Intensity: 0 Vital Signs Past 12 Hours Date Time Temp Pulse Resp B/P (MAP) Pulse Ox O2 Delivery O2 Flow Rate FiO2 03/08/17 16:14 76 16 119/83 (95) 99 Room Air 03/08/17 15:59 85 16 139/82 (101) 98 Room Air 03/08/17 14:21 36.6 88 16 129/69 (89) 98 Room Air Notes Mental Status: alert / awake / arousable, participated in evaluation Pt Amnestic to Procedure: Yes Nausea / Vomiting: adequately controlled Pain: adequately controlled Airway Patency, RR, SpO2: stable & adequate BP & HR: stable & adequate Hydration State: stable & adequate Anesthetic Complications: no major complications apparent
[2017-03-08 16:29] VITALS: BP 120/78; PULSE 73; O2SAT 96
== END | disposition home or self-care (01) ==
LOC: C.GI 13:49
PROVIDERS: ATTEND Internal Medicine Gastroenterology
DX: R19.7 Diarrhea, unspecified (principal); I10 Essential (primary) hypertension; F32.9 Major depressive disorder, single episode, unspecified; E07.9 Disorder of thyroid, unspecified; Z87.891 Personal history of nicotine dependence; Z79.899 Other long term (current) drug therapy

== ENCOUNTER 2019-03-15 12:55 | Inpatient (IN) ==
--- OUTSIDE RECORDS SUMMARY | 2019-03-15 12:59 | External Medical Summary | Continuity of Care Document ---
:1945 Author Name Katlyn Hogue, Provider Address Unavailable Unavailable , Care Team Providers Name Role Phone Unavailable Unavailable Unavailable Rach Eddy Unavailable [email or web address] Unavailable Unavailable Unavailable Unavailable Unavailable Problems Hypertension (401.9) (I10) Depression (311) (F32.9) Esophageal reflux (530.81) (K21.9) Insomnia (780.52) (G47.00) Cerebral aneurysm, nonruptured (437.3) (I67.1) Chronic obstructive pulmonary disease (496) (J44.9) Obstructive sleep apnea (327.23) (G47.33) Allergies and Adverse Reactions Spiriva (Allergy) Medications hydroCHLOROthiazide 25 MG Oral Tablet; TAKE 0.5 TABLET Daily Lennie Gtz Start: 11-Aug-2014 Refills: 0 buPROPion HCl ER (SR) 200 MG Oral Tablet Extended Rele ase 12 Hour; 1 bid Lennie Gtz Start: 11-Aug-2014 Refills: 0 PARoxetine HCl - 40 MG Oral Tablet; TAKE 1 TABLET SAVANNAH Y DIRECTED. Lennie Gtz Start: 11-Aug-2014 Refills: 0 Omeprazole 20 MG Oral Capsule Delayed Release; TAKE 1 CAPSULE Daily Lennie Gtz Start: 11-Aug-2014 Quantity: 90 Refills: 3 Pravastatin Sodium 40 MG Oral Tablet , M.DAbhi Refills: 0 Lisinopril 5 MG Oral Tablet; TAKE 1 TABLET DAILY. Mylene Gtz Quantity: 90 Refills: 3 Suprep Bowel Prep Kit 17.5-3.13-1.6 GM/177ML Oral Solu tion; USE DIRECTED. BRIA Abdullahi Start: 24-Jan-2017 Quantity: 1 2 x 177 ML Bottle Refills: 0 Voltaren 1 % Transdermal Gel; APPLY TO L OWER EXTREMITIES, 4 GM OF GEL TO AFFECTED AREA 4 TIMES DAILY. DO NOT APPLY MORE THAN 16 GM DAILY TO ANY ONE AFFECTED JOINT. Lennie Start: 20-Jan-2015 Refills: 0 Triamcinolone Acetonide 55 MCG/ACT Nasal Aerosol; INSTILL SQ UIRT PRN , M.D. Start: 20-Jan-2015 Refills: 0 Claritin 10 MG Oral Capsule; TAKE 1 CAPSULE PRN , M.D. Start: 20-Jan-2015 Refills: 0 Procedures History of Laminectomy Lumbar Status: Co mpleted History of Intracranial Aneurysm Repair Endovascular With Status: Completed [place] Immunizations Immunizations not documented Family History Sister Family history of Obstructive sleep apnea (327.23) (G47.33) Status: Active Social History - Smoking Status Former smoker Plan of Treatment Planned Observations Planned Goals not documented Results No Known Results Results not documented
[2019-03-15] MEDS ORDERED: ACETAMINOPHEN 1,000 MG/100 ML VIAL IV STA (13:03)
[2019-03-15] MEDS ORDERED: ONDANSETRON INJ 2 MG/ML 2 ML VIAL IV STA (13:03)
[2019-03-15] MEDS: MoRPHine SULFATE 2 MG/ML CARP IV PRN ×3 (13:33→20:32)
[2019-03-15 13:34] LABS: Hematocrit (blood only) 38.5 % (37-47); Hemoglobin 13.3 g/dL (12.0-16.0); Mean Corpuscular Hemoglobin 30.9 pg (25-34); Mean Corpuscular Hgb Conc 34.5 g/dL (32-36); Mean Corpuscular Volume 89.3 fL (80-100); Mean Platelet Volume 9.7 fL (7.4-10.4); Platelet Count 231 K/uL (130-400); RDW Coefficient of Variation 14.2 % (11.5-14.5); RDW Standard Deviation 46.7 fL (36.4-46.3); Red Blood Count 4.31 M/uL (4.2-5.4); White Blood Count 4.78 K/uL (4.8-10.8)
[2019-03-15 13:50] LABS: Calcium 9.2 mg/dl (8.5-10.1); Creatinine Clr Calc Pharmacy 60.4 ml/min; Est GFR (African American) 82.2; Est GFR (Non-African American) 70.9; Potassium 4.1 mmol/L (3.5-5.1)
--- NOTE | 2019-03-15 13:53 | XRay Report ---
XR hip LT 2-3V w pelvis CLINICAL HISTORY: Left hip pain status post trauma COMPARISON: 01/05/2018 DISCUSSION: There is an acute subcapital left hip fracture. There is no dislocation. Postsurgical tamara nges are present within the lumbar spine. IMPRESSION: Acute subcapital left hip fracture. Electronically signed by: Malik Glover M.D. 03/15/2019 1:51 PM
--- NOTE | 2019-03-15 13:54 | XRay Report ---
XR femur LT 2V routine CLINICAL HISTORY: Left femur pain status post trauma COMPARISON: None. DISCUSSION: The study is read in conjunction with a study of the left hip. Images the proximal femur not included on this study. There are postsurgical changes of a left hip arthroplasty. The knees in f lexion. No additional femoral fractures are visualized. IMPRESSION: 1. Subcapital left hip fracture, visualized on the accompanying hip x-ray. No additional femoral frac tures identified Electronically signed by: Malik Glover M.D. 03/15/2019 1:52 PM
[2019-03-15] MEDS ORDERED: LACTATED RINGER'S 1,000 ML IV SCH (14:00)
[2019-03-15] MEDS ORDERED: HYDROmorphone INJ 0.5 MG/0.5 ML SYR IV STA (14:05)
--- NOTE | 2019-03-15 14:15 | Emergency Department Note ---
Entered by Alannah Crawford acting as a scribe for Srinivas Martinez MD History of Present Illness General Chief complaint: Fall Time Seen by Provider: 03/15/19 12:59 Source: patient Limitations: no limitations History of Present Illness Onset (ago): hour(s) 1 Location: head and lower extremity Pain Consistency: + other (episode) Current Pain Intensity: 10 Quality: + other (fall) Exacerbated By: + movement Associated symptoms: + denies other symptoms (knee or ankle pain) The patient is a 73 year old female who presents to the Emergency Room with complaints of an episode of a fall that occurred at 12:00 today, about 1 hour ago. She notes that she was washing her windows, and she tripped over a hose and fell on a carpeted floor. The patient reports that she fell on her left buttock and complains of severe left hip pain. The patient rates the pain a 10/10 in severity. She notes that movement exacerbates the symptoms, stating that she has not attempted to walk since the fall. The patient denies any knee or ankle pain. She denies taking blood thinners. The patient denies any history of left hip surgery. Home Medications Home Medications Medication Instructions Recorded Confirmed Type hydroxyzine pamoate 25 mg PO DAILY 03/15/19 03/15/19 History lisinopril-hydrochlorothiazide 1 tab PO DAILY 03/15/19 03/15/19 History omeprazole 20 mg PO BID 03/15/19 03/15/19 History trazodone 100 mg PO DAILY 03/15/19 03/15/19 History Allergies Allergy/AdvReac Type Severity Reaction Status Date / Time milk Allergy Unknown ITCHING Verified 03/15/19 13:29 tiotropium Allergy Unknown ITCHING Verified 03/15/19 13:29 quetiapine AdvReac Severe N/V Verified 03/15/19 13:29 EPIDURAL Allergy Severe SEVERE Uncoded 03/15/19 13:29 [address] Past Med/Surg History Medical History Bilateral knee pain (Acute) Chest pain (Acute) Colitis (Acute) RIVERA (dyspnea on exertion) (Acute) Rib pain on right side (Acute) UTI (urinary tract infection) (Acute) Surgical History H/O spinal fusion H/O total knee replacement Social History Preferred Language: Lao Communication Ability: Effective Feels Safe at Home: Yes Smoking Status: Never smoker Review of Systems See HPI for pertinent positives & negatives. and A total of 10 systems reviewed and were otherwise negative Physical Exam Vital Signs Vital Signs - 24 hr 03/15/19 13:07 Temperature 36.6 C Temperature Source Oral Sepsis Recent Fever Within 48 Hours No Sepsis Action Taken by Nursing No Action Required Pulse Rate 73 Pulse Rhythm Regular Pulse Strength Normal Respiratory Rate 16 Respiratory Effort / Characteristics Non-Labored Respiratory Depth Normal Respiratory Pattern Regular Blood Pressure 146/87 H Blood Pressure Mean 106 Blood Pressure Position Lying Pulse Oximetry 96 Oxygen Delivery Method Room Air GENERAL: Patient is in no acute distress. HEENT: No acute trauma, normocephalic atraumatic, mucous membranes moist, no nasal congestion, no scleral icterus. NECK: No stridor, no adenopathy, no meningismus, trachea is midline. LUNGS: Clear to auscultation bilaterally, no wheeze, no rhonchi, breath sounds equal. HEART: Without murmurs gallops or rubs, regular rate and rhythm. ABDOMEN: Soft, nontender, bowel sounds positive, no hernias, no peritonitis. BACK: Non tender lumbar spine. EXTREMITIES: Pain to palpation of the lateral left hip. No gross deformity. Movement of the hip causes pain. No pain at the left knee or left ankle. NEUROLOGIC: Oriented x 3, no acute motor or sensory deficits, no focal weakness. SKIN: No rash, no jaundice, no diaphoresis. Course 1245: The patient was seen and evaluated by the Resident Physician at this time. History and physical were discussed with me. 1300: The patient was evaluated in room C06. A complete history and physical exam was performed. 1358: I updated the patient about her results. Case management was made aware of the patient's case. 1405: I spoke with Dr. Danielle, [facility] hospitalist, about the patients case. She will further evaluate the patient. 1418: I spoke with Dr. Jacques Hoffman, Orthopedic surgery, about the patients case. He will evaluate the patient. Consultations Consultation #1: I spoke with Dr. Danielle, [facility] hospitalist, about the patients case. She will further evaluate the patient. Time: 14:05 Consultation #2: I spoke with Dr. Jacques Hoffman, Orthopedic surgery, about the patients case. He will evaluate the patient. Time: 14:18 Administered Medications Morphine Sulfate (Morphine Sulfate) 2 mg IV Q30M PRN PRN Reason: Pain Stop: 03/29/19 13:02 Last Admin: 03/15/19 13:33 Dose: 2 mg Documented by: [id number] Discontinued Medications Hydromorphone HCl (Dilaudid) 0.5 mg IV NOW STA Stop: 03/15/19 14:06 Last Admin: 03/15/19 14:26 Dose: 0.5 mg Documented by: [id number] Acetaminophen (Ofirmev) 1,000 mg in 100 mls @ 400 mls/hr IV NOW STA Stop: 03/15/19 13:17 Last Infusion: 03/15/19 13:49 Dose: 0 mls/hr Documented by: [id number] Admin: 03/15/19 13:32 Dose: 400 mls/hr Documented by: [id number] Ondansetron HCl (Zofran) 4 mg IV NOW STA Stop: 03/15/19 13:04 Last Admin: 03/15/19 13:33 Dose: 4 mg Documented by: [id number] Medical Decision Making Differential Diagnosis The differential diagnosis includes: hip fracture, femur fracture, hematoma, contusion, strain, lumbar fracture, and dislocation. Medical Records Attestation: I reviewed the patient's medical records. Home Medications Current Medication List: was personally reviewed by me Laboratory Data Attestation: I reviewed the patient's lab results. Result diagrams: 03/15/19 13:24 03/15/19 13:24 Lab Results 03/15/19 03/15/19 03/15/19 Range/Units 13:24 13:24 14:13 WBC 4.78 L (4.8-10.8) K/uL RBC 4.31 (4.2-5.4) M/uL Hgb 13.3 (12.0-16.0) g/dL Hct 38.5 (37-47) % MCV 89.3 (80-100) fL MCH 30.9 (25-34) pg MCHC 34.5 (32-36) g/dL RDW Std Deviation 46.7 H (36.4-46.3) fL RDW Coeff of Van 14.2 (11.5-14.5) % Plt Count 231 (130-400) K/uL MPV 9.7 (7.4-10.4) fL PT 10.3 (9.0-12.0) Seconds INR 1.0 (0.9-1.1) APTT 24.8 (21.0-31.0) Seconds PTT Ratio 0.9 Sodium 137 (136-145) mmol/L Potassium 4.1 (3.5-5.1) mmol/L Chloride 104 (98-107) mmol/L Carbon Dioxide 29 (21-32) mmol/L Anion Gap 4.0 (3-11) BUN 18 (7-18) mg/dl Creatinine 0.83 (0.6-1.2) mg/dl Est Cr Clr Drug Dosing 60.4 ml/min Est GFR ( Amer) 82.2 Est GFR (Non-Af Amer) 70.9 BUN/Creatinine Ratio 22.0 H (10-20) Glucose 90 (70-99) mg/dl Calcium 9.2 (8.5-10.1) mg/dl Urine Color Urine Appearance (Clear) Urine pH (4.5-7.5) Ur Specific Mary D (1.000-1.030) Urine Protein (Negative) Urine Glucose (UA) (Negative) Urine Ketones (Negative) Urine Blood (Negative) Urine Nitrite (Negative) Urine Bilirubin (Negative) Urine Urobilinogen (Negative) Ur Leukocyte Esterase (Negative) Urine WBC (Auto) (0-5) /hpf Urine RBC (Auto) (0-4) /hpf U Hyaline Cast (Auto) (0-5) /lpf U Epithel Cells (Auto) (0-5) /lpf Urine Bacteria (Auto) (Negative) Blood Type Antibody Screen 03/15/19 03/15/19 Range/Units 14:13 Unknown WBC (4.8-10.8) K/uL RBC (4.2-5.4) M/uL Hgb (12.0-16.0) g/dL Hct (37-47) % MCV (80-100) fL MCH (25-34) pg MCHC (32-36) g/dL RDW Std Deviation (36.4-46.3) fL RDW Coeff of Van (11.5-14.5) % Plt Count (130-400) K/uL MPV (7.4-10.4) fL PT (9.0-12.0) Seconds INR (0.9-1.1) APTT (21.0-31.0) Seconds PTT Ratio Sodium (136-145) mmol/L Potassium (3.5-5.1) mmol/L Chloride (98-107) mmol/L Carbon Dioxide (21-32) mmol/L Anion Gap (3-11) BUN (7-18) mg/dl Creatinine (0.6-1.2) mg/dl Est Cr Clr Drug Dosing ml/min Est GFR ( Amer) Est GFR (Non-Af Amer) BUN/Creatinine Ratio (10-20) Glucose (70-99) mg/dl Calcium (8.5-10.1) mg/dl Urine Color Yellow Urine Appearance Clear (Clear) Urine pH 7.0 (4.5-7.5) Ur Specific Mary D 1.011 (1.000-1.030) Urine Protein Negative (Negative) Urine Glucose (UA) Negative (Negative) Urine Ketones Negative (Negative) Urine Blood Negative (Negative) Urine Nitrite Positive A (Negative) Urine Bilirubin Negative (Negative) Urine Urobilinogen Negative (Negative) Ur Leukocyte Esterase Negative (Negative) Urine WBC (Auto) 1-5 (0-5) /hpf Urine RBC (Auto) 0-4 (0-4) /hpf U Hyaline Cast (Auto) 1-5 (0-5) /lpf U Epithel Cells (Auto) 10-20 H (0-5) /lpf Urine Bacteria (Auto) 4+ H (Negative) Blood Type A Positive Antibody Screen NEGATIVE Imaging Data Radiologist's Impression: Radiology results as stated below per my review and the radiologist's interpretation: XR hip LT 2-3V w pelvis CLINICAL HISTORY: Left hip pain status post trauma COMPARISON: 01/05/2018 DISCUSSION: There is an acute subcapital left hip fracture. There is no dislocation. Postsurgical changes are present within the lumbar spine. IMPRESSION: Acute subcapital left hip fracture. Electronically signed by: Malik Glover M.D. 03/15/2019 1:51 PM XR femur LT 2V routine CLINICAL HISTORY: Left femur pain status post trauma COMPARISON: None. DISCUSSION: The study is read in conjunction with a study of the left hip. Images the proximal femur not included on this study. There are postsurgical changes of a left hip arthroplasty. The knees in flexion. No additional femoral fractures are visualized. IMPRESSION: 1. Subcapital left hip fracture, visualized on the accompanying hip x-ray. No additional femoral fractures identified Electronically signed by: Malik Glover M.D. 03/15/2019 1:52 PM XR chest 1V portable CLINICAL HISTORY: hip fx PREOPERATIVE CHEST COMPARISON STUDY: 09/11/2015 FINDINGS: The cardiac and mediastinal contours are normal. There is no evidence of focal pulmonary consolidation. There is no evidence of failure. No pleural effusions are visualized.[There are mild basilar atelectatic changes IMPRESSION: Mild basilar atelectatic changes. Otherwise negative AP portable chest Electronically signed by: Malik Glover M.D. 03/15/2019 2:49 PM Blood Pressure Blood Pressure Findings: Elevated blood pressure Blood Pressure Disposition: further management by hospitalist MDM Narrative There is no leukocytosis or concerning anemia. No significant electrolyte abnormality or kidney failure. Urinalysis is suggestive of possible infection, urine culture is pending. No coagulopathy. Left hip, femur and pelvis films were done, she does have a subcapital left hip fracture, no pelvic fracture. No hip dislocation. Chest film did not show pneumonia or CHF. On exam, the patient's only area of discomfort was her left hip. There was no neurovascular compromise in the left lower extremity. She had not struck her head, she was not on any blood thinners. She had no neck pain. Patient received IV lactated Ringer's, she was given IV Zofran, IV morphine. She was given IV Tylenol. She received IV Dilaudid. She is still having left hip pain but it is improved. The patient requires a hospital stay for this type of fracture. I did speak with case management, I talked to the patient about her findings. I did consult the on-call hospitalist. Orthopedics was consulted as well. Of note, the patient was ordered for a Richter catheter to help manage her urine output. Impression & Plan Closed fracture of left hip, Hip pain, left, Fall Discharge Plan Visit Data Chief Complaint: Fall Other Complaint: Hip Pain ED Provider: Srinivas Martinez Discharge Problem: Closed fracture of left hip, Hip pain, left, Fall Patient Disposition: Being Evaluated by Hospitalist Forms Stand Alone Forms: My [facility] Prescriptions Prescriptions: No Action trazodone 100 mg tablet 100 mg PO DAILY RF: 0 omeprazole 20 mg capsule,delayed release(DR/EC) 20 mg PO BID RF: 0 lisinopril-hydrochlorothiazide 10-12.5 mg tablet 1 tab PO DAILY RF: 0 hydroxyzine pamoate 25 mg capsule 25 mg PO DAILY RF: 0 Referrals Referrals: Sanjuana Cha MD [Primary Care Provider] - Discharge Problem: Closed fracture of left hip Qualifiers: Encounter type: initial encounter Qualified Code(s): S72.002A - Fracture of unspecified part of neck of left femur, initial encounter for closed fracture Fall Qualifiers: Encounter type: initial encounter Qualified Code(s): W19.XXXA - Unspecified fall, initial encounter The scribe's documentation has been prepared under my direction and personally reviewed by me in its entirety. I confirm that the note above accurately reflects all work, treatment, procedures, and medical decision making performed by me.
[2019-03-15 14:39] LABS: Partial Thromboplastin Ratio 0.9; Partial Thromboplastin Time 24.8 Seconds (21.0-31.0); Prothrombin Time 10.3 Seconds (9.0-12.0)
--- NOTE | 2019-03-15 14:40 | Orthopedic Consultation ---
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 After orthopedic consult discussing the patients treatment options of conservative versus surgical intervention, she agreed for a planned hemiarthroplasty. Since the patient was ambulatory prior to the injury and to avoid the risks of bed sores, pulmonary complications, and to give the patient the best chance for ambulation, I recommended surgery. The patient understands the risks of surgery, which include but are not limited to: bleeding, infection, re-operation, damage to nerves and arteries, continued pain, failure of the hardware, fracture, dislocation, DVT, [place], stroke, and . In addition the patient is aware of the 20-30% morbidity associated with hip fracture for up to 1 year following a hip fracture. The patient and her understands all of these instructions and explanations, all of their questions have been satisfactorily addressed. The patient has elected to proceed with surgery and the informed consent was signed. The patient has a Richter in place. Continue pain control. NPO with fluids after midnight. She will be admitted to the Hospitalist service. She has been placed on the add-on list for tomorrow as the OR is already in use until late tonight. Will plan to proceed with surgery tomorrow if medically cleared. Present on Admission?: Yes History of Present Illness Reason for Consultation: L Hip fracture Attending Physician: Dr. Martinez History of Present Illness 73 year old female who tripped on a cord injuring her left hip. Unable to bear weight. Came to the ER where x-rays were obtained and I was consulted for further evaluation and treatment. Allergies Allergy/AdvReac Type Severity Reaction Status Date / Time milk Allergy Unknown ITCHING Verified 03/15/19 13:29 tiotropium Allergy Unknown ITCHING Verified 03/15/19 13:29 quetiapine AdvReac Severe N/V Verified 03/15/19 13:29 EPIDURAL Allergy Severe SEVERE Uncoded 03/15/19 13:29 ITCHING EVERYWHERE Home Medications Home Medications Medication Instructions Recorded Confirmed Type hydroxyzine pamoate 25 mg PO DAILY 03/15/19 03/15/19 History lisinopril-hydrochlorothiazide 1 tab PO DAILY 03/15/19 03/15/19 History omeprazole 20 mg PO BID 03/15/19 03/15/19 History trazodone 100 mg PO DAILY 03/15/19 03/15/19 History Patient History Medical History Bilateral knee pain (Acute) Chest pain (Acute) Colitis (Acute) RIVERA (dyspnea on exertion) (Acute) Rib pain on right side (Acute) UTI (urinary tract infection) (Acute) Surgical History H/O cerebral aneurysm repair H/O rotator cuff surgery H/O spinal fusion H/O total knee replacement Social History Preferred Language: Mosotho Communication Ability: Effective Feels Safe at Home: Yes Smoking Status: Never smoker Review of Systems Review of Systems: All systems reviewed & are unremarkable except as noted in HPI & below Physical Exam Physical Exam: Focusing on the LLE: Sensation to light touch intact, 2+ DP pulse,able to wiggle toes up and down. Pain with log roll hip in groin. Results & Data Vital Signs (Past 12 Hours) Vital Signs Temp Pulse Resp BP Pulse Ox 03/15/19 13:07 36.6 C 73 16 146/87 H 96 Laboratory Results 03/15/19 03/15/19 03/15/19 Range/Units Unknown 14:13 14:13 WBC (4.8-10.8) K/uL RBC (4.2-5.4) M/uL Hgb (12.0-16.0) g/dL Hct (37-47) % MCV (80-100) fL MCH (25-34) pg MCHC (32-36) g/dL RDW Std Deviation (36.4-46.3) fL RDW Coeff of Van (11.5-14.5) % Plt Count (130-400) K/uL MPV (7.4-10.4) fL PT 10.3 (9.0-12.0) Seconds INR 1.0 (0.9-1.1) APTT 24.8 (21.0-31.0) Seconds PTT Ratio 0.9 Sodium (136-145) mmol/L Potassium (3.5-5.1) mmol/L Chloride (98-107) mmol/L Carbon Dioxide (21-32) mmol/L Anion Gap (3-11) BUN (7-18) mg/dl Creatinine (0.6-1.2) mg/dl Est Cr Clr Drug Dosing ml/min Est GFR ( Amer) Est GFR (Non-Af Amer) BUN/Creatinine Ratio (10-20) Glucose (70-99) mg/dl Calcium (8.5-10.1) mg/dl Urine Color Yellow Urine Appearance Clear (Clear) Urine pH 7.0 (4.5-7.5) Ur Specific Overton 1.011 (1.000-1.030) Urine Protein Negative (Negative) Urine Glucose (UA) Negative (Negative) Urine Ketones Negative (Negative) Urine Blood Negative (Negative) Urine Nitrite Positive A (Negative) Urine Bilirubin Negative (Negative) Urine Urobilinogen Negative (Negative) Ur Leukocyte Esterase Negative (Negative) Urine WBC (Auto) 1-5 (0-5) /hpf Urine RBC (Auto) 0-4 (0-4) /hpf U Hyaline Cast (Auto) 1-5 (0-5) /lpf U Epithel Cells (Auto) 10-20 H (0-5) /lpf Urine Bacteria (Auto) 4+ H (Negative) Blood Type A Positive Antibody Screen NEGATIVE 03/15/19 03/15/19 Range/Units 13:24 13:24 WBC 4.78 L (4.8-10.8) K/uL RBC 4.31 (4.2-5.4) M/uL Hgb 13.3 (12.0-16.0) g/dL Hct 38.5 (37-47) % MCV 89.3 (80-100) fL MCH 30.9 (25-34) pg MCHC 34.5 (32-36) g/dL RDW Std Deviation 46.7 H (36.4-46.3) fL RDW Coeff of Van 14.2 (11.5-14.5) % Plt Count 231 (130-400) K/uL MPV 9.7 (7.4-10.4) fL PT (9.0-12.0) Seconds INR (0.9-1.1) APTT (21.0-31.0) Seconds PTT Ratio Sodium 137 (136-145) mmol/L Potassium 4.1 (3.5-5.1) mmol/L Chloride 104 (98-107) mmol/L Carbon Dioxide 29 (21-32) mmol/L Anion Gap 4.0 (3-11) BUN 18 (7-18) mg/dl Creatinine 0.83 (0.6-1.2) mg/dl Est Cr Clr Drug Dosing 60.4 ml/min Est GFR ( Amer) 82.2 Est GFR (Non-Af Amer) 70.9 BUN/Creatinine Ratio 22.0 H (10-20) Glucose 90 (70-99) mg/dl Calcium 9.2 (8.5-10.1) mg/dl Urine Color Urine Appearance (Clear) Urine pH (4.5-7.5) Ur Specific Overton (1.000-1.030) Urine Protein (Negative) Urine Glucose (UA) (Negative) Urine Ketones (Negative) Urine Blood (Negative) Urine Nitrite (Negative) Urine Bilirubin (Negative) Urine Urobilinogen (Negative) Ur Leukocyte Esterase (Negative) Urine WBC (Auto) (0-5) /hpf Urine RBC (Auto) (0-4) /hpf U Hyaline Cast (Auto) (0-5) /lpf U Epithel Cells (Auto) (0-5) /lpf Urine Bacteria (Auto) (Negative) Blood Type Antibody Screen Diagnostic Findings X-rays: Left hip AP Pelvis, AP & lateral L hip show a vertical oriented subcapital hip fracture. Left Femur AP & Lateral shows evidence of previous TKA.
--- NOTE | 2019-03-15 14:50 | XRay Report ---
XR chest 1V portable CLINICAL HISTORY: hip fx PREOPERATIVE CHEST COMPARISON STUDY: 09/11/2015 FINDINGS: The cardiac and mediastinal contours are normal. There is no evidence of focal pulmonary co nsolidation. There is no evidence of failure. No pleural effusions are visualized.[There are mild bas ilar atelectatic changes IMPRESSION: Mild basilar atelectatic changes. Otherwise negative AP portable chest Electronically signed by: Malik Glover M.D. 03/15/2019 2:49 PM
[2019-03-15 14:51] LABS: Appearance Urine Clear (Clear); Bacteria Urine Automated 4+ (Negative); Bilirubin Urine Negative (Negative); Blood Urine Negative (Negative); Color Urine Yellow; Glucose Urine UA Negative (Negative); Ketones Urine Negative (Negative); Leukocyte Esterase Urine Negative (Negative); Nitrite Urine Positive (Negative); Protein Urine Negative (Negative); RBC Urine Automated 0-4 /hpf (0-4); Specific Gravity Urine 1.011 (1.000-1.030); Urobilinogen Urine Negative (Negative)
--- NOTE | 2019-03-15 16:47 | History & Physical Report ---
Date of Service March 15, 2019 Assessment & Plan (1) Closed fracture of left hip: Admit to inpatient on telemetry Vital signs every 4 hours Consulted orthopedics saw the patient N.p.o. after midnight for the orthopedic procedure DVT prophylaxis for now SCDs and AUNDREA hose since patient is going to have a procedure Pain management Start ceftriaxone for urinary tract infection Monitor CBC CMP PT/INR Full code Present on Admission?: Yes (2) UTI (urinary tract infection): Start ceftriaxone Follow-up with urine culture Present on Admission?: Yes History of Present Illness Chief Complaint: Left hip pain s/p fall Primary Care Provider: Sanjuana Cha MD Patient is a 73 years old female with past medical history of bilateral knee replacement, dyspnea on exertion, who presents today to the emergency room with complaint of an episode of fall that occurred around 12 PM today approximately hour ago. Patient noted that she was washing her windows and she tripped over a hose and fell on the carpeted floor. Patient reports that she fell on her buttock and complaining of having left hip pain. The patient relates that pain is 10 out of 10 in severity. She noted that that motion exacerbated the sympt oms, stated that she has not attempted to walk since the fall. Patient denies any knee or ankle pain. There is no bruises over her body. She denies taking blood thinners. Patient denies having history of left hip surgery. Patient denies fever chills chest pain shortness of breath abdominal pain frequency urgency syncope near syncope nausea vomiting hematemesis hematuria dysuria hemoptysis or melena. Labs are reviewed and it shows white blood cell count of 4.78, hemoglobin 13.3, hematocrit 38.5, platelets 231, PT 10.3, INR 1, APTT 24.8, sodium 137, potassium 4.1, chloride 104, carbon dioxide 29, anion gap 4 BUN 18 creatinine 0.83 GFR 70.9 glucose 90 and calcium 9.2. Urine yellow clear positive for urine nitrates and negative for leukocyte esterase there are no white blood cells and urine there is some bacteria 4+. X-rays of the left hip shows a subcapital left hip fracture. Chest x-ray shows mild basilar atelectatic changes. Decision was made to admit patient for orthopedic ev aluation and surgery of the fracture of the left hip and management of her other comorbidities. Allergies Allergy/AdvReac Type Severity Reaction Status Date / Time milk Allergy Unknown ITCHING Verified 03/15/19 13:29 tiotropium Allergy Unknown ITCHING Verified 03/15/19 13:29 quetiapine AdvReac Severe N/V Verified 03/15/19 13:29 EPIDURAL Allergy Severe SEVERE Uncoded 03/15/19 13:29 ITCHING EVERYWHERE Home Medications Home Medications Medication Instructions Recorded Confirmed Type hydroxyzine pamoate 25 mg PO DAILY 03/15/19 03/15/19 History lisinopril-hydrochlorothiazide 1 tab PO DAILY 03/15/19 03/15/19 History omeprazole 20 mg PO BID 03/15/19 03/15/19 History trazodone 100 mg PO DAILY 03/15/19 03/15/19 History Past Med/Surg History Medical History Bilateral knee pain (Acute) Chest pain (Acute) Colitis (Acute) RIVERA (dyspnea on exertion) (Acute) Rib pain on right side (Acute) UTI (urinary tract infection) (Acute) Surgical History H/O cerebral aneurysm repair H/O rotator cuff surgery H/O spinal fusion H/O total knee replacement Social History Preferred Language: Bengali Communication Ability: Effective Feels Safe at Home: Yes Smoking Status: Never smoker Review of Systems Review of Systems: All systems reviewed & are unremarkable except as noted in HPI & below Physical Exam Constitutional: WD/WN, vitals as above well developed Eyes: PERRL, conjunctivae normal, anicteric sclerae ENMT: external ear and nose normal, oropharynx normal Neck: trachea midline, no thyromegaly Respiratory: normal respiratory effort, lungs clear to auscultation Cardiovascular: RRR, no murmur, no edema Gastrointestinal (Abdomen): normal bowel sounds, soft, nontender, no hepatospl enomegaly Musculoskeletal: no cyanosis or clubbing, extremities motor strength 5/5 Extremities: strength 5/5 throughout Hip: + hip abnormal to inpsection, + deformity, + limited ROM of hip and + joint line tenderness Skin: no rashes, warm and dry Neurologic: patellar DTR's 2+ bilat, sensation intact Psychiatric: A+Ox3, euthymic affect Genitourinary: no vaginal lesions, no adnexal mass Lymphatic: no cervical or axillary lymphadenopathy Results & Data Vital Signs (Past 12 Hours) Vital Signs Temp Pulse Pulse Resp BP BP Pulse Ox 03/15/19 16:18 63 16 148/68 H 91 03/15/19 13:07 36.6 C 73 16 146/87 H 96 Code Status & VTE Plan Code Status Full code PG Care Time/CCT Total # of Minutes Spent Total Time Spent with Patient: Total time spent is greater than 50% in coordination of care (as documented) at patient's floor/unit and/or counseling patient: (1) Closed fracture of left hip Encounter type: initial encounter Qualified Code(s): S72.002A - Fracture of unspecified part of neck of left femur, initial encounter for closed fracture
[2019-03-15] MEDS ORDERED: ZOLPIDEM TARTRATE 5 MG TAB PO PRN (18:19)
[2019-03-15] MEDS ORDERED: ACETAMINOPHEN 325 MG TAB PO PRN (18:19)
[2019-03-15] MEDS ORDERED: POLYETHYLENE (MIRALAX) 17 GM PACK PO PRN (18:19)
[2019-03-15] MEDS ORDERED: ONDANSETRON INJ 2 MG/ML 2 ML VIAL IV PRN (18:19)
[2019-03-15] MEDS ORDERED: MAGNESIUM HYDROXIDE SUSP 30 ML UDC PO PRN (18:19)
[2019-03-15] MEDS ORDERED: ALUMINUM/MAGNESIUM SUSP 30 ML UDC PO PRN (18:19)
[2019-03-15] MEDS ORDERED: cefTRIAXone SODIUM 2,000 MG/70 ML BAG IV ONE (18:30)
[2019-03-15] MEDS: PANTOprazole 40 MG TAB PO SCH (19:34)
[2019-03-15] MEDS: TRAZODONE HCL 100 MG TAB PO SCH (19:34)
[2019-03-15] MEDS: OXYCODONE/ACETAMINOPHEN 5mg/325mg TAB PO PRN (22:48)
[2019-03-16] MEDS: SODIUM CHLORIDE 0.9% 1000ML 1,000 ML IV SCH ×3 (00:50→20:32)
--- NOTE | 2019-03-16 07:42 | Orthopedic Progress Note ---
Date of Service March 16, 2019 Assessment & Plan (1) Closed left hip fracture: Left femoral neck fracture in setting of ground level fall, yesterday. Continue pain control. Has been NPO with fluids after midnight. Admitted to the Hospitalist service. She is on the add-on list, plan left hip hemiarthroplasty. Will plan to proceed with surgery tomorrow if medically cleared. Subjective Left hip pain. "had a terrible night". Review of Systems Review of Systems: Noted she had a hysterectomy in the past and a bladder procedure to tack the cosme down and does not typically empty her bladder all the way since. Physical Exam Physical Exam: LLE: Neurovascularly intact. calf soft and non-tender Results & Data Vital Signs (Past 12 Hours) Vital Signs Temp Pulse Resp BP BP Pulse Ox 03/16/19 07:25 86 18 108/70 91 03/16/19 03:34 36.7 C 85 18 110/67 93 03/15/19 23:54 36.8 C 78 18 107/64 92 Laboratory Results 03/15/19 03/15/19 03/15/19 Range/Units Unknown 14:13 14:13 WBC (4.8-10.8) K/uL RBC (4.2-5.4) M/uL Hgb (12.0-16.0) g/dL Hct (37-47) % MCV (80-100) fL MCH (25-34) pg MCHC (32-36) g/dL RDW Std Deviation (36.4-46.3) fL RDW Coeff of Van (11.5-14.5) % Plt Count (130-400) K/uL MPV (7.4-10.4) fL PT 10.3 (9.0-12.0) Seconds INR 1.0 (0.9-1.1) APTT 24.8 (21.0-31.0) Seconds PTT Ratio 0.9 Sodium (136-145) mmol/L Potassium (3.5-5.1) mmol/L Chloride (98-107) mmol/L Carbon Dioxide (21-32) mmol/L Anion Gap (3-11) BUN (7-18) mg/dl Creatinine (0.6-1.2) mg/dl Est Cr Clr Drug Dosing ml/min Est GFR ( Amer) Est GFR (Non-Af Amer) BUN/Creatinine Ratio (10-20) Glucose (70-99) mg/dl Calcium (8.5-10.1) mg/dl NT-Pro-B Natriuret Pep (0-900) pg/ml Urine Color Yellow Urine Appearance Clear (Clear) Urine pH 7.0 (4.5-7.5) Ur Specific [place] 1.011 (1.000-1.030) Urine Protein Negative (Negative) Urine Glucose (UA) Negative (Negative) Urine Ketones Negative (Negative) Urine Blood Negative (Negative) Urine Nitrite Positive A (Negative) Urine Bilirubin Negative (Negative) Urine Urobilinogen Negative (Negative) Ur Leukocyte Esterase Negative (Negative) Urine WBC (Auto) 1-5 (0-5) /hpf Urine RBC (Auto) 0-4 (0-4) /hpf U Hyaline Cast (Auto) 1-5 (0-5) /lpf U Epithel Cells (Auto) 10-20 H (0-5) /lpf Urine Bacteria (Auto) 4+ H (Negative) Blood Type A Positive Antibody Screen NEGATIVE 03/15/19 03/15/19 Range/Units 13:24 13:24 WBC 4.78 L (4.8-10.8) K/uL RBC 4.31 (4.2-5.4) M/uL Hgb 13.3 (12.0-16.0) g/dL Hct 38.5 (37-47) % MCV 89.3 (80-100) fL MCH 30.9 (25-34) pg MCHC 34.5 (32-36) g/dL RDW Std Deviation 46.7 H (36.4-46.3) fL RDW Coeff of Van 14.2 (11.5-14.5) % Plt Count 231 (130-400) K/uL MPV 9.7 (7.4-10.4) fL PT (9.0-12.0) Seconds INR (0.9-1.1) APTT (21.0-31.0) Seconds PTT Ratio Sodium 137 (136-145) mmol/L Potassium 4.1 (3.5-5.1) mmol/L Chloride 104 (98-107) mmol/L Carbon Dioxide 29 (21-32) mmol/L Anion Gap 4.0 (3-11) BUN 18 (7-18) mg/dl Creatinine 0.83 (0.6-1.2) mg/dl Est Cr Clr Drug Dosing 60.4 ml/min Est GFR ( Amer) 82.2 Est GFR (Non-Af Amer) 70.9 BUN/Creatinine Ratio 22.0 H (10-20) Glucose 90 (70-99) mg/dl Calcium 9.2 (8.5-10.1) mg/dl NT-Pro-B Natriuret Pep 116 (0-900) pg/ml Urine Color Urine Appearance (Clear) Urine pH (4.5-7.5) Ur Specific [place] (1.000-1.030) Urine Protein (Negative) Urine Glucose (UA) (Negative) Urine Ketones (Negative) Urine Blood (Negative) Urine Nitrite (Negative) Urine Bilirubin (Negative) Urine Urobilinogen (Negative) Ur Leukocyte Esterase (Negative) Urine WBC (Auto) (0-5) /hpf Urine RBC (Auto) (0-4) /hpf U Hyaline Cast (Auto) (0-5) /lpf U Epithel Cells (Auto) (0-5) /lpf Urine Bacteria (Auto) (Negative) Blood Type Antibody Screen
[2019-03-16] MEDS: PANTOprazole 40 MG TAB PO SCH ×2 (07:55→21:34)
[2019-03-16] MEDS: OXYCODONE/ACETAMINOPHEN 5mg/325mg TAB PO PRN (07:57)
[2019-03-16 08:07] LABS: Basophils # (auto) 0.02 K/uL (0-0.2); Basophils % (auto) 0.3 %; Eosinophils # (auto) 0.02 K/uL (0-0.5); Eosinophils % (auto) 0.3 %; Hemoglobin 12.7 g/dL (12.0-16.0); Immature Granulocytes # (auto) 0.01 K/uL (0.00-0.02); Immature Granulocytes % (auto) 0.2 %; Lymphocytes # (auto) 1.62 K/uL (1.2-3.4); Lymphocytes % (auto) 24.7 %; Mean Corpuscular Hemoglobin 30.7 pg (25-34); Mean Corpuscular Hgb Conc 34.3 g/dL (32-36); Mean Corpuscular Volume 89.4 fL (80-100); Mean Platelet Volume 9.7 fL (7.4-10.4); Monocytes # (auto) 0.63 K/uL (0.11-0.59); Monocytes % (auto) 9.6 %; Neutrophils # (auto) 4.27 K/uL (1.4-6.5); Neutrophils % (auto) 64.9 %; Platelet Count 212 K/uL (130-400); RDW Coefficient of Variation 14.3 % (11.5-14.5); RDW Standard Deviation 46.8 fL (36.4-46.3); Red Blood Count 4.14 M/uL (4.2-5.4); White Blood Count 6.57 K/uL (4.8-10.8)
[2019-03-16 08:16] LABS: Partial Thromboplastin Time 27.2 Seconds (21.0-31.0); Prothrombin Time 10.4 Seconds (9.0-12.0)
[2019-03-16 08:38] LABS: Albumin Level 3.3 gm/dl (3.4-5.0); BUN Creatinine Ratio 19.9 (10-20); Calcium 8.6 mg/dl (8.5-10.1); Creatinine Clr Calc Pharmacy 68.6 ml/min; Est GFR (Non-African American) 77.7; Potassium 4.2 mmol/L (3.5-5.1)
[2019-03-16 08:40] LABS: Albumin Globulin Ratio 0.9 (0.9-2); Bilirubin,Total 0.3 mg/dl (0.2-1); Globulin 3.7 gm/dl (2.5-4.0)
[2019-03-16] MEDS ORDERED: TRAZODONE HCL 100 MG TAB PO SCH (09:00)
[2019-03-16] MEDS ORDERED: LISINOPRIL/HCTZ 10/12.5MG TAB PO SCH (09:00)
[2019-03-16] MEDS: BuPROPion SR 150 MG TABCR PO SCH ×2 (11:44→21:34)
--- NOTE | 2019-03-16 12:38 | Hospitalist Progress Note ---
Date of Service March 16, 2019 Assessment & Plan (1) Closed fracture of left hip: Patient admitted with mechanical fall after tripping and landing on her left hip, sustaining a left subcapital hip fracture -Scheduled to go to the operating room today with orthopedics for repair-she is at average perioperative risk to undergo this intermediate risk procedure and should therefore proceed with surgical repair -Appreciate orthopedics consultation and postoperative management -Continue pain control with IV morphine for now -DVT prophylaxis as per orthopedics -Maintain Richter catheter and will need bowel regimen (2) UTI (urinary tract infection): Urinalysis abnormal upon admission Given that she is having surgery, antibiotics were started -Follow urine culture -Continue ceftriaxone (3) Fall: Mechanical fall at home -We will need PT/OT after surgery (4) HTN (hypertension), benign: Blood pressures on the low side likely due to blood loss anemia from fracture -We will hold lisinopril/HCTZ for tomorrow -Follow renal function -Follow blood pressures (5) GERD (gastroesophageal reflux disease): -Stable -Continue PPI twice daily (6) Hyperlipidemia: -Continue home pravastatin 40 mill grams p.o. nightly (7) Anxiety disorder: Stable -Continue home bupropion 150 mg SR p.o. twice daily -Continue home trazodone 100 mg p.o. nightly -Hydroxyzine is actually supposed to be given at bedtime as needed for anxiety- we will hold off on this for now given that she will be on other sedating medications including trazodone and opioids (8) DVT prophylaxis: SCDs, postop as per orthopedics Disposition-okay to transfer off of telemetry to medical/surgical floor Subjective Patient was seen prior to surgery today and was complaining of severe pain in the left hip and was requesting pain medicine. Denies chest pain ever. She is normally able to walk up and down flight of stairs without any angina. She has never had a heart problem that she is aware of. No history of shortness of breath or congestive heart failure. She denies nausea or abdominal pain. Denies headaches or lightheadedness. She is anxious to have her hip fixed today. Review of Systems Review of Systems: All systems reviewed & are unremarkable except as noted in HPI & below Physical Exam Constitutional: WD/WN, vitals as above Eyes: + anicteric sclerae ENMT: external ear and nose normal, oropharynx normal Neck: trachea midline, no thyromegaly Respiratory: normal respiratory effort, lungs clear to auscultation Cardiovascular: RRR, no murmur, no edema Gastrointestinal (Abdomen): normal bowel sounds, soft, nontender, no hep atosplenomegaly Musculoskeletal: Extremities: + extremities abnormal to inspection (Left lower extremity shortened and internally rotated, positive tenderness palpation over the left groin, 2+ dorsalis pedis pulses bilaterally), no cyanosis and no clubbing Skin: no rashes, warm and dry Neurologic: moves all extremities and awake; no focal motor deficits Psychiatric: A+Ox3, euthymic affect Genitourinary: Richter catheter in place draining clear yellow urine Results & Data Vital Signs (Past 12 Hours) Vital Signs Temp Pulse Resp BP BP Pulse Ox 03/16/19 11:18 36.5 C 83 20 113/67 03/16/19 07:25 86 18 108/70 91 03/16/19 03:34 36.7 C 85 18 110/67 93 Laboratory Results 03/16/19 03/16/19 03/16/19 Range/Units 07:54 07:54 07:54 WBC (4.8-10.8) K/uL RBC (4.2-5.4) M/uL Hgb (12.0-16.0) g/dL Hct (37-47) % MCV (80-100) fL MCH (25-34) pg MCHC (32-36) g/dL RDW Std Deviation (36.4-46.3) fL RDW Coeff of Van (11.5-14.5) % Plt Count (130-400) K/uL MPV (7.4-10.4) fL Immature Gran % (Auto) % Neut % (Auto) % Lymph % (Auto) % [place] % (Auto) % Eos % (Auto) % Baso % (Auto) % Immature Gran # (Auto) (0.00-0.02) K/uL Neut # (Auto) (1.4-6.5) K/uL Lymph # (Auto) (1.2-3.4) K/uL [place] # (Auto) (0.11-0.59) K/uL Eos # (Auto) (0-0.5) K/uL Baso # (Auto) (0-0.2) K/uL PT 10.4 (9.0-12.0) Seconds INR 1.0 (0.9-1.1) APTT 27.2 (21.0-31.0) Seconds PTT Ratio 1.0 Sodium 136 (136-145) mmol/L Potassium 4.2 (3.5-5.1) mmol/L Chloride 103 (98-107) mmol/L Carbon Dioxide 26 (21-32) mmol/L Anion Gap 6.0 (3-11) BUN 15 (7-18) mg/dl Creatinine 0.77 (0.6-1.2) mg/dl Est Cr Clr Drug Dosing 68.6 ml/min Est GFR ( Amer) 90.0 Est GFR (Non-Af Amer) 77.7 BUN/Creatinine Ratio 19.9 (10-20) Glucose 126 H (70-99) mg/dl Estimat Average Glucose Pending Hemoglobin A1c Pending Calcium 8.6 (8.5-10.1) mg/dl Total Bilirubin 0.3 (0.2-1) mg/dl AST 12 L (15-37) U/L ALT 20 (12-78) U/L Alkaline Phosphatase 110 (45-117) U/L Total Protein 7.0 (6.4-8.2) gm/dl Albumin 3.3 L (3.4-5.0) gm/dl Globulin 3.7 (2.5-4.0) gm/dl Albumin/Globulin Ratio 0.9 (0.9-2) Triglycerides 76 (0-150) mg/dl Cholesterol 166 (0-200) mg/dl LDL Cholesterol, Calc 91 mg/dl VLDL Cholesterol, Calc 15 mg/dl HDL Cholesterol 60 mg/dl Cholesterol/HDL Ratio 3 03/16/19 Range/Units 07:54 WBC 6.57 (4.8-10.8) K/uL RBC 4.14 L (4.2-5.4) M/uL Hgb 12.7 (12.0-16.0) g/dL Hct 37.0 (37-47) % MCV 89.4 (80-100) fL MCH 30.7 (25-34) pg MCHC 34.3 (32-36) g/dL RDW Std Deviation 46.8 H (36.4-46.3) fL RDW Coeff of Van 14.3 (11.5-14.5) % Plt Count 212 (130-400) K/uL MPV 9.7 (7.4-10.4) fL Immature Gran % (Auto) 0.2 % Neut % (Auto) 64.9 % Lymph % (Auto) 24.7 % [place] % (Auto) 9.6 % Eos % (Auto) 0.3 % Baso % (Auto) 0.3 % Immature Gran # (Auto) 0.01 (0.00-0.02) K/uL Neut # (Auto) 4.27 (1.4-6.5) K/uL Lymph # (Auto) 1.62 (1.2-3.4) K/uL [place] # (Auto) 0.63 H (0.11-0.59) K/uL Eos # (Auto) 0.02 (0-0.5) K/uL Baso # (Auto) 0.02 (0-0.2) K/uL PT (9.0-12.0) Seconds INR (0.9-1.1) APTT (21.0-31.0) Seconds PTT Ratio Sodium (136-145) mmol/L Potassium (3.5-5.1) mmol/L Chloride (98-107) mmol/L Carbon Dioxide (21-32) mmol/L Anion Gap (3-11) BUN (7-18) mg/dl Creatinine (0.6-1.2) mg/dl Est Cr Clr Drug Dosing ml/min Est GFR ( Amer) Est GFR (Non-Af Amer) BUN/Creatinine Ratio (10-20) Glucose (70-99) mg/dl Estimat Average Glucose Hemoglobin A1c Calcium (8.5-10.1) mg/dl Total Bilirubin (0.2-1) mg/dl AST (15-37) U/L ALT (12-78) U/L Alkaline Phosphatase (45-117) U/L Total Protein (6.4-8.2) gm/dl Albumin (3.4-5.0) gm/dl Globulin (2.5-4.0) gm/dl Albumin/Globulin Ratio (0.9-2) Triglycerides (0-150) mg/dl Cholesterol (0-200) mg/dl LDL Cholesterol, Calc mg/dl VLDL Cholesterol, Calc mg/dl HDL Cholesterol mg/dl Cholesterol/HDL Ratio PG Care Time/CCT Total # of Minutes Spent Total Time Spent with Patient: Total time spent is greater than 50% in coordination of care (as documented) at patient's floor/unit and/or counseling patient: (1) Closed fracture of left hip Encounter type: initial encounter Qualified Code(s): S72.002A - Fracture of unspecified part of neck of left femur, initial encounter for closed fracture (2) Fall Encounter type: initial encounter Qualified Code(s): W19.XXXA - Unspecified fall, initial encounter
[2019-03-16] MEDS: MoRPHine SULFATE 2 MG/ML CARP IV PRN (12:39)
--- NOTE | 2019-03-16 14:45 | Anesthesiology Consultation ---
Date of Service March 16, 2019 Assessment & Plan (1) Encounter for pre-operative examination: Chart Review Chart Review: Acceptable Risk for Surgery and Patient NOT seen in Pre Admission Testing Consults Requested none History Surgery Operation Date: 03/16/19 11:15 Proposed Procedures p Bipolar Hip Prosthesis(Left) - Jacques Sharan Hoffman MD Height/Weight Height: 5 ft 4 in Weight: 80 kg Allergies Allergy/AdvReac Type Severity Reaction Status Date / Time milk Allergy Unknown ITCHING Verified 03/15/19 13:29 tiotropium Allergy Unknown ITCHING Verified 03/15/19 13:29 quetiapine AdvReac Severe N/V Verified 03/15/19 13:29 EPIDURAL Allergy Severe SEVERE Uncoded 03/15/19 13:29 ITCHING EVERYWHERE Medications Home Medications Medication Instructions Recorded Confirmed Last Taken hydroxyzine pamoate 25 mg PO DAILY 03/15/19 03/15/19 Unknown lisinopril-hydrochlorothiazide 1 tab PO DAILY 03/15/19 03/15/19 Unknown omeprazole 20 mg PO BID 03/15/19 03/15/19 Unknown trazodone 100 mg PO DAILY 03/15/19 03/15/19 Unknown bupropion HCl 150 mg PO BID 03/16/19 03/16/19 Unknown Active Medications Generic Name Dose Route Start Last Admin Trade Name Freq PRN Reason Stop Dose Admin Bupropion HCl 150 mg 03/16/19 10:15 03/16/19 11:44 Wellbutrin-Sr PO 04/15/19 10:14 150 mg BID ROSANNA Administration Lisinopril/HCTZ 1 tab 03/16/19 09:00 03/16/19 07:56 Prinzide 10/12.5mg PO 04/15/19 08:59 1 tab DAILY ROSANNA Administration Hydroxyzine HCl 25 mg 03/16/19 09:00 03/16/19 07:56 Vistaril PO 04/15/19 08:59 25 mg DAILY ROSANNA Administration Sodium Chloride 1,000 mls @ 80 mls/hr 03/16/19 00:00 03/16/19 13:32 Nss 1000ml IV 04/15/19 00:00 80 mls/hr .[id number] ROSANNA Administration Morphine Sulfate 2 mg 03/15/19 19:57 03/16/19 12:39 Morphine Sulfate IV 09/21/19 19:56 2 mg Q6H PRN Administration Pain Oxycodone/Acetaminophen 1 tab 03/15/19 19:57 03/16/19 07:57 Percocet 5mg/325mg PO 03/29/19 19:56 1 tab Q4H PRN Administration Pain Pantoprazole Sodium 40 mg 03/15/19 21:00 03/16/19 07:55 Protonix PO 04/14/19 20:59 40 mg BID ROSANNA Administration Trazodone HCl 100 mg 03/15/19 21:00 03/15/19 19:34 Desyrel PO 04/14/19 20:59 100 mg HS ROSANNA Administration Zolpidem Tartrate 5 mg 03/15/19 18:19 03/16/19 00:50 Ambien PO 04/14/19 18:18 5 mg HS PRN Administration Sleep NPO Date Last Intake of Fluids: 03/16/19 Time Last Intake of Fluids: 00:00 Date Last Intake of Solids: 03/16/19 Time Last Intake of Solids: 00:00 Past Medical History Medical History Bilateral knee pain (Acute) Chest pain (Acute) Colitis (Acute) RIVERA (dyspnea on exertion) (Acute) Rib pain on right side (Acute) UTI (urinary tract infection) (Acute) Past Surgical History Surgical History H/O cerebral aneurysm repair H/O rotator cuff surgery H/O spinal fusion H/O total knee replacement Social History Smoking Status: Former smoker tobacco type: cigarettes Hx Alcohol Use: No Hx Substance Use: No Physical Exam Vital Signs Last Vital Signs Temp 36.5 C 03/16/19 11:18 Pulse 83 03/16/19 11:18 Resp 20 03/16/19 11:18 BP 113/67 03/16/19 11:18 Pulse Ox 91 03/16/19 07:25 Testing Laboratory Results 03/16/19 07:54 03/16/19 07:54 PT 10.4 Seconds (9.0-12.0) 03/16/19 07:54 INR 1.0 (0.9-1.1) 03/16/19 07:54 APTT 27.2 Seconds (21.0-31.0) 03/16/19 07:54 Urine Color Yellow 03/15/19 Unknown Urine Appearance Clear (Clear) 03/15/19 Unknown Urine pH 7.0 (4.5-7.5) 03/15/19 Unknown Ur Specific [place] 1.011 (1.000-1.030) 03/15/19 Unknown Urine Protein Negative (Negative) 03/15/19 Unknown Urine Glucose (UA) Negative (Negative) 03/15/19 Unknown Urine Ketones Negative (Negative) 03/15/19 Unknown Urine Nitrite Positive (Negative) A 03/15/19 Unknown Ur Leukocyte Esterase Negative (Negative) 03/15/19 Unknown Urine WBC (Auto) 1-5 /hpf (0-5) 03/15/19 Unknown Urine RBC (Auto) 0-4 /hpf (0-4) 03/15/19 Unknown U Hyaline Cast (Auto) 1-5 /lpf (0-5) 03/15/19 Unknown U Epithel Cells (Auto) 10-20 /lpf (0-5) H 03/15/19 Unknown Urine Bacteria (Auto) 4+ (Negative) H 03/15/19 Unknown Blood Type A Positive 03/15/19 14:13 Antibody Screen NEGATIVE 03/15/19 14:13 03/15/19 Unknown Urine Culture - Preliminary Urine,Clean Catch Gram negative bacilli
[2019-03-16] MEDS ORDERED: LIDOCAINE/EPINEPHRINE 1% 20 ML VIAL ONE (15:30)
[2019-03-16] MEDS ORDERED: BUPIVACAINE 0.5 % 5 MG/1 ML MPF 30ML VIAL ONE (15:30)
[2019-03-16] MEDS ORDERED: BUPIVACAINE 0.5 % 5 MG/1 ML PF 10ML VIAL ONE (15:49)
[2019-03-16] MEDS ORDERED: LIDOCAINE HCL 2% 2 ML VIAL/AMP(20MG/ML) INFIL ONE (15:53)
[2019-03-16] MEDS ORDERED: fentaNYL citrate 100 MCG/2 ML VIAL ONE ×2 (15:53→16:49)
[2019-03-16] MEDS ORDERED: PROPOFOL IV EMULSION 10 MG/ML 20 ML VIAL IV ONE (15:53)
[2019-03-16] MEDS ORDERED: ROCURONIUM BROMIDE 10 MG/ML 5 ML VIAL ONE (15:53)
[2019-03-16] MEDS ORDERED: ePHEDrine sulfate 50 MG/ML AMP IV PRN (15:58)
[2019-03-16] MEDS ORDERED: HYDROmorphone INJ 1 MG/ML SYRINGE IV PRN (15:58)
[2019-03-16] MEDS ORDERED: ATROPINE SULFATE 0.1 MG/ML 10ML SYR IV PRN (15:58)
[2019-03-16] MEDS ORDERED: TRANEXAMIC ACID 1,000 MG in 0.9 % SODIUM CHLORIDE 100 ML IV SCH (16:00)
[2019-03-16] MEDS ORDERED: ROPIVACAINE 0.5% HCL/PF 150 MG, BUPIVACAINE 0.5% MPF 30 ML, EPINEPHrine 0.15 MG, Ketoro... INFIL SCH (16:00)
[2019-03-16] MEDS ORDERED: TRANEXAMIC ACID 1,000 MG in 0.9 % SODIUM CHLORIDE 100 ML IV ONE (16:44)
[2019-03-16] MEDS ORDERED: CEFAZOLIN 2000MG 2,000 MG/15 ML SYR IV ONE (17:11)
[2019-03-16] MEDS ORDERED: ONDANSETRON INJ 2 MG/ML 2 ML VIAL ONE (17:46)
--- NOTE | 2019-03-16 17:47 | XRay Report ---
SINGLE VIEW LEFT HIP CLINICAL HISTORY: Intraoperative radiograph. Hip arthroplasty. FINDINGS: A crosstable lateral portable view of the left hip is compared to study dated 03/15/2019. A u nipolar left hip arthroplasty is in near-anatomic alignment. No acute fracture is identified. Soft ti ssue edema and subcutaneous gas are expected operative findings. IMPRESSION: A left hip arthroplasty is in near-anatomic alignment. No fracture is seen on this single image. Electronically signed by: Srinivas Ervin M.D. 03/16/2019 5:46 PM
--- NOTE | 2019-03-16 18:41 | Post Operative Brief Note ---
Immediate Post Op Note v1 Date of Surgery March 16, 2019 Pre & Post Diagnosis Operation Date: 03/16/19 11:15 Pre-Op Diagnosis: LEFT HIP FRACTURE Post-Op Diagnosis: LEFT HIP FRACTURE Procedure Operation Date: 03/16/19 11:15 Actual Procedures p Bipolar Hip Prosthesis(Left) - Jacques Hoffman MD Surgeon Jacques Hoffman MD Key Bed Installer Gia Myers PA-C (No fellow avail) Estimated Blood Loss 75 Findings Consistent with Post-Op Diagnosis Fluids 1600 cc Specimens Left femoral head Anesthesia Type General Complications none
--- NOTE | 2019-03-16 18:42 | Operative Report ---
Post Operative Report Pre & Post Diagnosis Operation Date: 03/16/19 11:15 Pre-Op Diagnosis: LEFT HIP FRACTURE Post-Op Diagnosis: LEFT HIP FRACTURE Procedure Operation Date: 03/16/19 11:15 Actual Procedures p Bipolar Hip Prosthesis(Left) - Jacques Hoffman MD Surgeon Jacques Hoffman MD Co Pilot Gia Myers PA-C (No fellow avail) Estimated Blood Loss 75 Findings See Below Left subcapital hip fracture. 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 After orthopedic consult discussing the patients treatment options of conservative versus surgical intervention, she agreed for a planned hemiarthroplasty. Since the patient was ambulatory prior to the injury and to avoid the risks of bed sores, pulmonary complications, and to give the patient the best chance for ambulation, I recommended surgery. The patient understands the risks of surgery, which include but are not limited to: bleeding, infection, re-operation, damage to nerves and arteries, continued pain, failure of the hardware, dislocation, DVT, and . In addition the patient is aware of the 20-30% morbidity associated with hip fracture for up to 1 year following a hip fracture. The patient understands all of these instructions and explanations, all of their questions have been satisfactorily addressed. The patient has elected to proceed with surgery and the informed consent was signed. Description of Procedure Implants 1) Stem, Size 14 LDFX Cemented (Karissa). 2) Femoral Head 28mm Diameter, + 0 mm Neck Length. 3) 48 mm Multipolar Bipolar Cup. 4) 28 mm ID Liner, Multipolar Bipolar Cup. 5) Distal Centralizer. 6) Simplex cement 2 ([employer]). Description of Procedure The patient was taken to the Operating Room and placed in the lateral position with a boykin bag following general anesthesia administration. A multidisciplinary time-out was performed identifying my initials on the right lower limb as the correct and operative limb. Prior to the incision being made, 2 grams of intravenous Ancef were given. The right lower extremity was prepped in the standard fashion. The patient was given TXA before the start of the case and prior to cementing. The trochanter was marked as was the planned incision 1/3 proximal and 2/3 distal to the tip of the greater trochanter. A standard posterior approach was made. The planned incision was carried down through the Tensor Fascia Claudia , which was then split in-line with its fibers. The Gluteus Fly was bluntly dissected. The Piriformis and short external rotators were dissected off the capsule and femur and tagged for later repair. The capsule was incised and and large hematoma was evacuated. The head was removed as the hip was dislocated. The Neck cut was made. The femoral canal was prepared with Box osteotome, followed by a canal finder and lateralizing reamer. The femur was sequentially broached in the standard fashion, and trial heads were placed. Fluoroscopy was brought in to ensure adequate proper alignment, fill of the canal, head size, and leg length. There was good canal fill and good position. The trial components were removed and the wound and femoral canal were copiously irrigated and dried. The femur was cemented using 3rd generation technique followed by placement of the components in the standard fashion and the hip reduced. There was excellent stability with no sense of dislocation with 20 degrees adduction, flexion 90 degrees, and internal rotation to 50 degrees. The wounds were copiously irrigated. The capsule was closed with 0 Vicryl. The External rotators and capsule were reattached over bon bridges with #2 FiberWire. The Tensor Fascia Claudia was closed with #1 & 0 Vicryl. The subcutaneous fat had a few stay sutures placed using 3-0 Vicryl. The subcutaneous tissue was closed with 3-0 Vicryl. The skin was closed with Zipline. The incisions were covered with 4x4, ABD and Tegaderm. The patient was transfer to her hospital bed and taken to the ICU acting as the PACU in stable condition. The sponge and needle counts were correct. Post-op Instructions: The patient was admitted to back to the Med/Surg floor. Final x-rays will be obtained in the PACU. The patient will be WBAT with a walker. The patient will be seen by PT/OT. The patient's labs will be checked in the am. DVT prophylaxis will be with TEDs, mechanical devices and will ASA in the AM. I attest to the content of the Intraoperative Record and any orders documented therein. Any exceptions are noted below.
--- NOTE | 2019-03-16 18:52 | Operative Report ---
Post Operative Report Pre & Post Diagnosis Operation Date: 03/16/19 11:15 Pre-Op Diagnosis: LEFT HIP FRACTURE Post-Op Diagnosis: LEFT HIP FRACTURE Procedure Operation Date: 03/16/19 11:15 Actual Procedures p Bipolar Hip Prosthesis, Left(Left) - Jacques Hoffman MD Surgeon Jacques Hoffman MD Catering Administrative Assistant Gia Myers PA-C (No fellow avail) Estimated Blood Loss 75 Findings Consistent with Post-Op Diagnosis Specimens Left femoral head Drains None Complications none Disposition Accompanied Patient To Recovery: No Description of Procedure Patient was taken to the operating room placed under general anesthesia. She was given 2 g of IV Ancef for surgical prophylaxis. Time out was performed. She was prepped and draped in routine sterile fashion in the right lateral decubitus position. I was present for the entire case and assisted with exposure, implantation of hardware, closure and dressings. Please see Dr. Hoffman's operative report for further detail. Patient was awakened and transferred to the recovery room in stable condition. I attest to the content of the Intraoperative Record and any orders documented therein. Any exceptions are noted below.
--- NOTE | 2019-03-16 18:59 | Anesthesiology Progress Note ---
Date of Service March 16, 2019 Anesthesia Post Procedure Vital Signs Vital Signs: Temp Pulse Pulse Resp BP BP Pulse Ox 03/16/19 15:57 37.2 C 96 H 16 120/62 92 03/16/19 11:18 36.5 C 83 20 113/67 03/16/19 07:25 86 18 108/70 91 03/16/19 03:34 36.7 C 85 18 110/67 93 03/15/19 23:54 36.8 C 78 18 107/64 92 03/15/19 19:27 82 Pain Intensity Left Hip: Pain Intensity: 8 Transfer of Care Handoff Completed per policy Notes Mental Status: alert / awake / arousable Patient Amnestic to Procedure: Yes Nausea / Vomiting: adequately controlled Pain: adequately controlled Airway Patency, RR, SpO2: stable & adequate BP & HR: stable & adequate Hydration State: stable & adequate Anesthetic Complications: no major complications apparent and Pt Satisfied with anesthetic care
[2019-03-16] MEDS ORDERED: NALOXONE HCL 0.4 MG/1 ML VIAL/CARP IV PRN (20:03)
[2019-03-16] MEDS ORDERED: LORazepam 1 MG/2 ML VIAL IV STA (20:17)
[2019-03-16] MEDS ORDERED: HALOPERIDOL LACTATE 5 MG/ML 1 ML VIAL IM STA (20:17)
[2019-03-16] MEDS: TRAZODONE HCL 100 MG TAB PO SCH (21:34)
[2019-03-16] MEDS: PRAVASTATIN SOD 40 MG TAB PO SCH (21:34)
[2019-03-16] MEDS: cefTRIAXone SODIUM 1,000 MG in DEXTROSE 5% 50 ML IV SCH (21:44)
[2019-03-16] MEDS ORDERED: OLANZapine 10 MG/2.1 ML SDV IM STA (21:59)
[2019-03-17] MEDS ORDERED: HALOPERIDOL LACTATE 5 MG/ML 1 ML VIAL IM STA (01:54)
[2019-03-17] MEDS: CEFAZOLIN 2000MG 2,000 MG/15 ML SYR IV SCH ×2 (02:44→08:54)
[2019-03-17 06:18] LABS: Estimated Average Glucose 128 mg/dl; Hemoglobin A1C 6.1 % (4.5-5.6)
[2019-03-17 08:10] LABS: Basophils # (auto) 0.02 K/uL (0-0.2); Basophils % (auto) 0.2 %; Hematocrit (blood only) 33.2 % (37-47); Hemoglobin 11.4 g/dL (12.0-16.0); Immature Granulocytes # (auto) 0.03 K/uL (0.00-0.02); Immature Granulocytes % (auto) 0.2 %; Lymphocytes # (auto) 1.16 K/uL (1.2-3.4); Lymphocytes % (auto) 9.2 %; Mean Corpuscular Hemoglobin 30.6 pg (25-34); Mean Corpuscular Hgb Conc 34.3 g/dL (32-36); Mean Platelet Volume 9.3 fL (7.4-10.4); Monocytes # (auto) 1.15 K/uL (0.11-0.59); Monocytes % (auto) 9.1 %; Neutrophils # (auto) 10.28 K/uL (1.4-6.5); Neutrophils % (auto) 81.3 %; Platelet Count 168 K/uL (130-400); RDW Coefficient of Variation 14.3 % (11.5-14.5); RDW Standard Deviation 46.6 fL (36.4-46.3); Red Blood Count 3.73 M/uL (4.2-5.4); White Blood Count 12.64 K/uL (4.8-10.8)
--- NOTE | 2019-03-17 08:37 | XRay Report ---
XR hip LT min 2V CLINICAL HISTORY: Post-Operative implant position COMPARISON: None. DISCUSSION: Anatomic alignment posttotal left hip arthroplasty. Could contact between prosthetic and underlying bone. Expected postoperative soft tissue changes IMPRESSION: Anatomic alignment posttotal left hip arthroplasty. The above report was generated using voice recognition software. It may contain grammatical, syntax or spelling errors. Electronically signed by: Isaac Hollins M.D. 03/17/2019 8:35 AM
[2019-03-17] MEDS: ASPIRIN 81 MG ECTAB PO SCH ×2 (08:54→20:47)
[2019-03-17 09:13] LABS: BUN Creatinine Ratio 22.1 (10-20); Calcium 8.7 mg/dl (8.5-10.1); Creatinine Clr Calc Pharmacy 77.6 ml/min; Potassium 4.3 mmol/L (3.5-5.1)
[2019-03-17 09:16] LABS: Albumin Globulin Ratio 0.9 (0.9-2); Bilirubin,Total 0.5 mg/dl (0.2-1); Globulin 3.4 gm/dl (2.5-4.0); Total Protein 6.4 gm/dl (6.4-8.2)
[2019-03-17] MEDS: PANTOprazole 40 MG TAB PO SCH ×2 (09:21→20:46)
[2019-03-17] MEDS: BuPROPion SR 150 MG TABCR PO SCH ×2 (09:21→20:46)
--- NOTE | 2019-03-17 10:55 | Orthopedic Progress Note ---
Date of Service March 17, 2019 Assessment & Plan (1) Closed left hip fracture: POD #1 s/p Left hip hemiarthroplasty. Continue pain control. Resume diet. Total hip precautions. Weightbearing as tolerated left lower extremity. We will initially require walker and possible assistance. PT/OT. Ice to the left hip as needed. Complete the course of antibiotics. DVT prophylaxis: TEDs for a minimum 2 weeks on the left leg, or until swelling subsides. SCDs while in the hospital. Aspirin 81 mg twice a day for 6 weeks. Continue care per the primary Hospitalist service. Discharge planning. Subjective Left hip pain Review of Systems Review of Systems: All systems reviewed & are unremarkable except as noted in HPI & below After seeing the patient,Nursing staff noted that Last evening, she was very uncooperative, and pulled out her IVs as well as her Richter. She has not obtained and a postop antibiotics yet. She is more cooperative this a.m. Physical Exam Physical Exam: Focusing on the left lower extremity, her dressing is clean, dry, intact. She is able to wiggle her toes up and down. Sensation light touch is intact distally. Her calf is soft and nontender. Results & Data Vital Signs (Past 12 Hours) Vital Signs Temp Pulse Resp BP Pulse Ox 03/17/19 08:07 37.6 C H 111 H 20 132/68 91 Laboratory Results 03/17/19 03/17/19 03/17/19 Range/Units 08:01 08:01 08:01 WBC 12.64 H (4.8-10.8) K/uL RBC 3.73 L (4.2-5.4) M/uL Hgb 11.4 L (12.0-16.0) g/dL Hct 33.2 L (37-47) % MCV 89.0 (80-100) fL MCH 30.6 (25-34) pg MCHC 34.3 (32-36) g/dL RDW Std Deviation 46.6 H (36.4-46.3) fL RDW Coeff of Van 14.3 (11.5-14.5) % Plt Count 168 (130-400) K/uL MPV 9.3 (7.4-10.4) fL Immature Gran % (Auto) 0.2 % Neut % (Auto) 81.3 % Lymph % (Auto) 9.2 % Louisa % (Auto) 9.1 % Eos % (Auto) 0.0 % Baso % (Auto) 0.2 % Immature Gran # (Auto) 0.03 H (0.00-0.02) K/uL Neut # (Auto) 10.28 H (1.4-6.5) K/uL Lymph # (Auto) 1.16 L (1.2-3.4) K/uL Louisa # (Auto) 1.15 H (0.11-0.59) K/uL Eos # (Auto) 0.00 (0-0.5) K/uL Baso # (Auto) 0.02 (0-0.2) K/uL Sodium 139 (136-145) mmol/L Potassium 4.3 (3.5-5.1) mmol/L Chloride 107 (98-107) mmol/L Carbon Dioxide 26 (21-32) mmol/L Anion Gap 6.0 (3-11) BUN 15 (7-18) mg/dl Creatinine 0.68 (0.6-1.2) mg/dl Est Cr Clr Drug Dosing 77.6 ml/min Est GFR ( Amer) 102.0 Est GFR (Non-Af Amer) 88.0 BUN/Creatinine Ratio 22.1 H (10-20) Glucose 110 H (70-99) mg/dl Estimat Average Glucose mg/dl Hemoglobin A1c (4.5-5.6) % Calcium 8.7 (8.5-10.1) mg/dl Total Bilirubin 0.5 (0.2-1) mg/dl AST 29 (15-37) U/L ALT 22 (12-78) U/L Alkaline Phosphatase 87 (45-117) U/L Total Protein 6.4 (6.4-8.2) gm/dl Albumin 3.0 L (3.4-5.0) gm/dl Globulin 3.4 (2.5-4.0) gm/dl Albumin/Globulin Ratio 0.9 (0.9-2) 25-OH Vitamin D Total 23.2 L (30-100) ng/ml 03/16/19 Range/Units 07:54 WBC (4.8-10.8) K/uL RBC (4.2-5.4) M/uL Hgb (12.0-16.0) g/dL Hct (37-47) % MCV (80-100) fL MCH (25-34) pg MCHC (32-36) g/dL RDW Std Deviation (36.4-46.3) fL RDW Coeff of Van (11.5-14.5) % Plt Count (130-400) K/uL MPV (7.4-10.4) fL Immature Gran % (Auto) % Neut % (Auto) % Lymph % (Auto) % Louisa % (Auto) % Eos % (Auto) % Baso % (Auto) % Immature Gran # (Auto) (0.00-0.02) K/uL Neut # (Auto) (1.4-6.5) K/uL Lymph # (Auto) (1.2-3.4) K/uL Louisa # (Auto) (0.11-0.59) K/uL Eos # (Auto) (0-0.5) K/uL Baso # (Auto) (0-0.2) K/uL Sodium (136-145) mmol/L Potassium (3.5-5.1) mmol/L Chloride (98-107) mmol/L Carbon Dioxide (21-32) mmol/L Anion Gap (3-11) BUN (7-18) mg/dl Creatinine (0.6-1.2) mg/dl Est Cr Clr Drug Dosing ml/min Est GFR ( Amer) Est GFR (Non-Af Amer) BUN/Creatinine Ratio (10-20) Glucose (70-99) mg/dl Estimat Average Glucose 128 mg/dl Hemoglobin A1c 6.1 H (4.5-5.6) % Calcium (8.5-10.1) mg/dl Total Bilirubin (0.2-1) mg/dl AST (15-37) U/L ALT (12-78) U/L Alkaline Phosphatase (45-117) U/L Total Protein (6.4-8.2) gm/dl Albumin (3.4-5.0) gm/dl Globulin (2.5-4.0) gm/dl Albumin/Globulin Ratio (0.9-2) 25-OH Vitamin D Total (30-100) ng/ml Diagnostic Findings Postop AP and lateral, show a cemented left hip hemiarthroplasty in good position.
[2019-03-17] MEDS: SODIUM CHLORIDE 0.9% 1000ML 1,000 ML IV SCH ×2 (10:59→15:49)
[2019-03-17] MEDS ORDERED: ERGOCALCIFEROL 50,000 UNITS CAP PO ONE (15:16)
[2019-03-17] MEDS: MoRPHine SULFATE 2 MG/ML CARP IV PRN (15:49)
--- NOTE | 2019-03-17 17:39 | Hospitalist Progress Note ---
Date of Service March 17, 2019 Assessment & Plan (1) Closed fracture of left hip: Patient admitted with mechanical fall after tripping and landing on her left hip, sustaining a left subcapital hip fracture -s/p ORIF on 03/16 DOing well post-op PT/OT consulted -Appreciate orthopedics consultation and postoperative management -Continue pain control -DVT prophylaxis with AUNDREA, SCDs, ASA 81mg bid x 6 weeks (2) UTI (urinary tract infection): Urinalysis abnormal upon admission -urine culture with pansensitive E. coli -Continue ceftriaxone and convert to po abx to complete 7 day course tomorrow (3) Fall: Mechanical fall at home (4) HTN (hypertension), benign: Blood pressures normal -continue to hold lisinopril/HCTZ -Follow renal function -Follow blood pressures (5) GERD (gastroesophageal reflux disease): -Stable -Continue PPI twice daily (6) Hyperlipidemia: -Continue home pravastatin 40 mg p.o. nightly (7) Anxiety disorder: Stable -Continue home bupropion 150 mg SR p.o. twice daily -Continue home trazodone 100 mg p.o. nightly -hold hydroxyzine to avoid excessive sedation with receiving opioids and trazadone (8) Vitamin D deficiency: Vit D level mildly low at 23 -start Vit D 1000 units po once daily (9) DVT prophylaxis: SCDs,ASA Disposition-continued stay, will need rehab placement Subjective Pt reports pain is controlled. Apparently she had a rough night pulling at her IV and Shoemaker. When asked about it, she said she couldn't sleep. DOes seem very hyperactive and anxious, but when asked if she is anxious, she states "no." Is biting her nails while I'm talking to her. Denies headache, nausea, CP, SOB, no abd pain. No BM since admission, is urinating. Is eating Review of Systems Review of Systems: All systems reviewed & are unremarkable except as noted in HPI & below Physical Exam Constitutional: WD/WN, vitals as above Eyes: + anicteric sclerae Neck: trachea midline, no thyromegaly Respiratory: normal respiratory effort, lungs clear to auscultation Cardiovascular: RRR, no murmur, no edema Gastrointestinal (Abdomen): normal bowel sounds, soft, nontender, no hepatosplenomegaly Musculoskeletal: Extremities: + extremities abnormal to inspection (Left hip with dressing in place c/d/i, can ankle dorsiflex and plantarflex), no cyanosis and no clubbing Skin: no rashes, warm and dry Neurologic: moves all extremities and awake; no focal motor deficits Psychiatric: A+Ox3, euthymic affect Results & Data Vital Signs (Past 12 Hours) Vital Signs Temp Pulse Resp BP Pulse Ox 03/17/19 15:05 37.3 C 108 H 17 113/68 91 03/17/19 08:07 37.6 C H 111 H 20 132/68 91 Laboratory Results 03/17/19 03/17/19 03/17/19 Range/Units 08:01 08:01 08:01 WBC 12.64 H (4.8-10.8) K/uL RBC 3.73 L (4.2-5.4) M/uL Hgb 11.4 L (12.0-16.0) g/dL Hct 33.2 L (37-47) % MCV 89.0 (80-100) fL MCH 30.6 (25-34) pg MCHC 34.3 (32-36) g/dL RDW Std Deviation 46.6 H (36.4-46.3) fL RDW Coeff of Van 14.3 (11.5-14.5) % Plt Count 168 (130-400) K/uL MPV 9.3 (7.4-10.4) fL Immature Gran % (Auto) 0.2 % Neut % (Auto) 81.3 % Lymph % (Auto) 9.2 % Keith % (Auto) 9.1 % Eos % (Auto) 0.0 % Baso % (Auto) 0.2 % Immature Gran # (Auto) 0.03 H (0.00-0.02) K/uL Neut # (Auto) 10.28 H (1.4-6.5) K/uL Lymph # (Auto) 1.16 L (1.2-3.4) K/uL Keith # (Auto) 1.15 H (0.11-0.59) K/uL Eos # (Auto) 0.00 (0-0.5) K/uL Baso # (Auto) 0.02 (0-0.2) K/uL Sodium 139 (136-145) mmol/L Potassium 4.3 (3.5-5.1) mmol/L Chloride 107 (98-107) mmol/L Carbon Dioxide 26 (21-32) mmol/L Anion Gap 6.0 (3-11) BUN 15 (7-18) mg/dl Creatinine 0.68 (0.6-1.2) mg/dl Est Cr Clr Drug Dosing 77.6 ml/min Est GFR ( Amer) 102.0 Est GFR (Non-Af Amer) 88.0 BUN/Creatinine Ratio 22.1 H (10-20) Glucose 110 H (70-99) mg/dl Estimat Average Glucose mg/dl Hemoglobin A1c (4.5-5.6) % Calcium 8.7 (8.5-10.1) mg/dl Total Bilirubin 0.5 (0.2-1) mg/dl AST 29 (15-37) U/L ALT 22 (12-78) U/L Alkaline Phosphatase 87 (45-117) U/L Total Protein 6.4 (6.4-8.2) gm/dl Albumin 3.0 L (3.4-5.0) gm/dl Globulin 3.4 (2.5-4.0) gm/dl Albumin/Globulin Ratio 0.9 (0.9-2) 25-OH Vitamin D Total 23.2 L (30-100) ng/ml 03/16/19 Range/Units 07:54 WBC (4.8-10.8) K/uL RBC (4.2-5.4) M/uL Hgb (12.0-16.0) g/dL Hct (37-47) % MCV (80-100) fL MCH (25-34) pg MCHC (32-36) g/dL RDW Std Deviation (36.4-46.3) fL RDW Coeff of Van (11.5-14.5) % Plt Count (130-400) K/uL MPV (7.4-10.4) fL Immature Gran % (Auto) % Neut % (Auto) % Lymph % (Auto) % Keith % (Auto) % Eos % (Auto) % Baso % (Auto) % Immature Gran # (Auto) (0.00-0.02) K/uL Neut # (Auto) (1.4-6.5) K/uL Lymph # (Auto) (1.2-3.4) K/uL Keith # (Auto) (0.11-0.59) K/uL Eos # (Auto) (0-0.5) K/uL Baso # (Auto) (0-0.2) K/uL Sodium (136-145) mmol/L Potassium (3.5-5.1) mmol/L Chloride (98-107) mmol/L Carbon Dioxide (21-32) mmol/L Anion Gap (3-11) BUN (7-18) mg/dl Creatinine (0.6-1.2) mg/dl Est Cr Clr Drug Dosing ml/min Est GFR ( Amer) Est GFR (Non-Af Amer) BUN/Creatinine Ratio (10-20) Glucose (70-99) mg/dl Estimat Average Glucose 128 mg/dl Hemoglobin A1c 6.1 H (4.5-5.6) % Calcium (8.5-10.1) mg/dl Total Bilirubin (0.2-1) mg/dl AST (15-37) U/L ALT (12-78) U/L Alkaline Phosphatase (45-117) U/L Total Protein (6.4-8.2) gm/dl Albumin (3.4-5.0) gm/dl Globulin (2.5-4.0) gm/dl Albumin/Globulin Ratio (0.9-2) 25-OH Vitamin D Total (30-100) ng/ml PG Care Time/CCT Total # of Minutes Spent Total Time Spent with Patient: Total time spent is greater than 50% in coordination of care (as documented) at patient's floor/unit and/or counseling patient: (1) Fall Encounter type: initial encounter Qualified Code(s): W19.XXXA - Unspecified fall, initial encounter (2) Closed fracture of left hip Encounter type: initial encounter Qualified Code(s): S72.002A - Fracture of unspecified part of neck of left femur, initial encounter for closed fracture
[2019-03-17] MEDS: cefTRIAXone SODIUM 1,000 MG in DEXTROSE 5% 50 ML IV SCH (20:44)
[2019-03-17] MEDS: PRAVASTATIN SOD 40 MG TAB PO SCH (20:46)
[2019-03-17] MEDS: TRAZODONE HCL 100 MG TAB PO SCH (20:47)
[2019-03-18] MEDS: SODIUM CHLORIDE 0.9% 1000ML 1,000 ML IV SCH (03:49)
[2019-03-18 07:08] LABS: Basophils # (auto) 0.01 K/uL (0-0.2); Basophils % (auto) 0.1 %; Eosinophils # (auto) 0.01 K/uL (0-0.5); Eosinophils % (auto) 0.1 %; Hematocrit (blood only) 31.3 % (37-47); Hemoglobin 10.7 g/dL (12.0-16.0); Immature Granulocytes # (auto) 0.02 K/uL (0.00-0.02); Immature Granulocytes % (auto) 0.2 %; Lymphocytes # (auto) 1.31 K/uL (1.2-3.4); Lymphocytes % (auto) 13.4 %; Mean Corpuscular Hgb Conc 34.2 g/dL (32-36); Mean Corpuscular Volume 90.7 fL (80-100); Mean Platelet Volume 9.1 fL (7.4-10.4); Monocytes # (auto) 1.11 K/uL (0.11-0.59); Monocytes % (auto) 11.3 %; Neutrophils # (auto) 7.33 K/uL (1.4-6.5); Neutrophils % (auto) 74.9 %; Platelet Count 154 K/uL (130-400); RDW Coefficient of Variation 14.3 % (11.5-14.5); RDW Standard Deviation 47.4 fL (36.4-46.3); Red Blood Count 3.45 M/uL (4.2-5.4); White Blood Count 9.79 K/uL (4.8-10.8)
[2019-03-18] MEDS: BuPROPion SR 150 MG TABCR PO SCH ×2 (07:32→21:44)
[2019-03-18] MEDS: ASPIRIN 81 MG ECTAB PO SCH ×2 (07:32→21:45)
[2019-03-18] MEDS: PANTOprazole 40 MG TAB PO SCH ×2 (07:32→21:44)
[2019-03-18] MEDS: CHOLECALCIFEROL 1,000 UNITS TAB PO SCH (07:33)
[2019-03-18] MEDS: OXYCODONE/ACETAMINOPHEN 5mg/325mg TAB PO PRN ×2 (07:35→14:00)
[2019-03-18 07:39] LABS: BUN Creatinine Ratio 21.4 (10-20); Calcium 8.3 mg/dl (8.5-10.1); Creatinine Clr Calc Pharmacy 89.5 ml/min; Est GFR (African American) 106.9; Est GFR (Non-African American) 92.2
--- NOTE | 2019-03-18 12:05 | Orthopedic Progress Note ---
Date of Service March 18, 2019 Assessment & Plan (1) Closed left hip fracture: POD #2 s/p Left hip hemiarthroplasty. Continue pain control. Resume diet. Total hip precautions. Weightbearing as tolerated left lower extremity. We will initially require walker and possible assistance. PT/OT. Ice to the left hip as needed. May shower, change dressing after. Keep Incision covered while in hospital. DVT prophylaxis: TEDs for a minimum 2 weeks on the left leg, or until swelling subsides. SCDs while in the hospital. Aspirin 81 mg twice a day for 6 weeks. Continue care per the primary Hospitalist service. Discharge planning. Subjective Left hip pain Physical Exam Physical Exam: LLE: Neurovascularly intact. calf soft & non-tender. Dressing clean,dry,intact. Results & Data Vital Signs (Past 12 Hours) Vital Signs Temp Pulse Resp BP Pulse Ox 03/18/19 07:16 37.1 C 93 H 17 118/68 92 Laboratory Results 03/18/19 03/18/19 Range/Units 06:58 06:58 WBC 9.79 (4.8-10.8) K/uL RBC 3.45 L (4.2-5.4) M/uL Hgb 10.7 L (12.0-16.0) g/dL Hct 31.3 L (37-47) % MCV 90.7 (80-100) fL MCH 31.0 (25-34) pg MCHC 34.2 (32-36) g/dL RDW Std Deviation 47.4 H (36.4-46.3) fL RDW Coeff of Van 14.3 (11.5-14.5) % Plt Count 154 (130-400) K/uL MPV 9.1 (7.4-10.4) fL Immature Gran % (Auto) 0.2 % Neut % (Auto) 74.9 % Lymph % (Auto) 13.4 % [place]on % (Auto) 11.3 % Eos % (Auto) 0.1 % Baso % (Auto) 0.1 % Immature Gran # (Auto) 0.02 (0.00-0.02) K/uL Neut # (Auto) 7.33 H (1.4-6.5) K/uL Lymph # (Auto) 1.31 (1.2-3.4) K/uL [place]on # (Auto) 1.11 H (0.11-0.59) K/uL Eos # (Auto) 0.01 (0-0.5) K/uL Baso # (Auto) 0.01 (0-0.2) K/uL Sodium 139 (136-145) mmol/L Potassium 4.0 (3.5-5.1) mmol/L Chloride 106 (98-107) mmol/L Carbon Dioxide 27 (21-32) mmol/L Anion Gap 5.0 (3-11) BUN 13 (7-18) mg/dl Creatinine 0.59 L (0.6-1.2) mg/dl Est Cr Clr Drug Dosing 89.5 ml/min Est GFR ( Amer) 106.9 Est GFR (Non-Af Amer) 92.2 BUN/Creatinine Ratio 21.4 H (10-20) Glucose 123 H (70-99) mg/dl Calcium 8.3 L (8.5-10.1) mg/dl
--- NOTE | 2019-03-18 17:44 | Hospitalist Progress Note ---
Date of Service March 18, 2019 Assessment & Plan (1) Closed fracture of left hip: Patient admitted with mechanical fall after tripping and landing on her left hip, sustaining a left subcapital hip fracture -s/p ORIF on 03/16 DOing well post-op with some intermittent confusion and urine retention Hgb only mild drop to 10.7 from 12 PT/OT consulted-awaiting rehab placement -Appreciate orthopedics consultation and postoperative management -Continue pain control but will dc all opioids as having intermittent confusion and urinary retention -start tylenol 1000mg po q8h prn pain only -dc Shoemaker and trial of void again-would straight cath only prn PVR>350mL -DVT prophylaxis with AUNDREA, SCDs, ASA 81mg bid x 6 weeks (2) UTI (urinary tract infection): Urinalysis abnormal upon admission -urine culture with pansensitive E. coli -convert ceftriaxone to po keflex 500mg bid to complete 7 day course (3) Fall: Mechanical fall at home (4) HTN (hypertension), benign: Blood pressures normal -continue to hold lisinopril/HCTZ -Follow renal function -Follow blood pressures (5) GERD (gastroesophageal reflux disease): -Stable -Continue PPI twice daily (6) Hyperlipidemia: -Continue home pravastatin 40 mg p.o. nightly (7) Anxiety disorder: Stable -Continue home bupropion 150 mg SR p.o. twice daily -Continue home trazodone 100 mg p.o. nightly -hold hydroxyzine to avoid excessive sedation with receiving opioids and trazadone (8) Vitamin D deficiency: Vit D level mildly low at 23 -started Vit D 1000 units po once daily (9) DVT prophylaxis: SCDs,ASA Disposition-continued stay, awaiting rehab placement-hopeful for dc tomorrow Subjective Feeling very well. No pain. Had Shoemaker replaced last night for retention. Still not sleeping and very impulsive at times, confused at nighttime. Took two doses of oxycodone today. Denies nausea or abd pain. No BM in many days Denies CP or SOB Review of Systems Review of Systems: All systems reviewed & are unremarkable except as noted in HPI & below Physical Exam Constitutional: WD/WN, vitals as above Eyes: + anicteric sclerae Neck: trachea midline, no thyromegaly Respiratory: normal respiratory effort, lungs clear to auscultation Cardiovascular: RRR, no murmur, no edema Gastrointestinal (Abdomen): normal bowel sounds, soft, nontender, no hepatosplenomegaly Musculoskeletal: Extremities: + extremities abnormal to inspection (Left hip with dressing in place c/d/i, can ankle dorsiflex and plantarflex), no cyanosis and no clubbing Skin: no rashes, warm and dry Neurologic: moves all extremities and awake; no focal motor deficits Psychiatric: A+Ox3, euthymic affect Results & Data Vital Signs (Past 12 Hours) Vital Signs Temp Pulse Resp BP Pulse Ox 03/18/19 15:40 37.2 C 93 H 20 125/76 91 03/18/19 07:16 37.1 C 93 H 17 118/68 92 Laboratory Results 03/18/19 03/18/19 Range/Units 06:58 06:58 WBC 9.79 (4.8-10.8) K/uL RBC 3.45 L (4.2-5.4) M/uL Hgb 10.7 L (12.0-16.0) g/dL Hct 31.3 L (37-47) % MCV 90.7 (80-100) fL MCH 31.0 (25-34) pg MCHC 34.2 (32-36) g/dL RDW Std Deviation 47.4 H (36.4-46.3) fL RDW Coeff of Van 14.3 (11.5-14.5) % Plt Count 154 (130-400) K/uL MPV 9.1 (7.4-10.4) fL Immature Gran % (Auto) 0.2 % Neut % (Auto) 74.9 % Lymph % (Auto) 13.4 % [place] % (Auto) 11.3 % Eos % (Auto) 0.1 % Baso % (Auto) 0.1 % Immature Gran # (Auto) 0.02 (0.00-0.02) K/uL Neut # (Auto) 7.33 H (1.4-6.5) K/uL Lymph # (Auto) 1.31 (1.2-3.4) K/uL [place]ie # (Auto) 1.11 H (0.11-0.59) K/uL Eos # (Auto) 0.01 (0-0.5) K/uL Baso # (Auto) 0.01 (0-0.2) K/uL Sodium 139 (136-145) mmol/L Potassium 4.0 (3.5-5.1) mmol/L Chloride 106 (98-107) mmol/L Carbon Dioxide 27 (21-32) mmol/L Anion Gap 5.0 (3-11) BUN 13 (7-18) mg/dl Creatinine 0.59 L (0.6-1.2) mg/dl Est Cr Clr Drug Dosing 89.5 ml/min Est GFR ( Amer) 106.9 Est GFR (Non-Af Amer) 92.2 BUN/Creatinine Ratio 21.4 H (10-20) Glucose 123 H (70-99) mg/dl Calcium 8.3 L (8.5-10.1) mg/dl PG Care Time/CCT Total # of Minutes Spent Total Time Spent with Patient: Total time spent is greater than 50% in coordination of care (as documented) at patient's floor/unit and/or counseling patient: (1) Closed fracture of left hip Encounter type: initial encounter Qualified Code(s): S72.002A - Fracture of unspecified part of neck of left femur, initial encounter for closed fracture (2) Fall Encounter type: initial encounter Qualified Code(s): W19.XXXA - Unspecified fall, initial encounter
[2019-03-18] MEDS: POLYETHYLENE (MIRALAX) 17 GM PACK PO SCH (19:19)
[2019-03-18] MEDS: PRAVASTATIN SOD 40 MG TAB PO SCH (21:44)
[2019-03-18] MEDS: cephALEXin 500 MG CAP PO SCH (21:45)
[2019-03-18] MEDS: TRAZODONE HCL 100 MG TAB PO SCH (21:45)
[2019-03-19] MEDS: ACETAMINOPHEN 500 MG TAB PO PRN ×2 (05:16→13:33)
[2019-03-19] MEDS: cephALEXin 500 MG CAP PO SCH (08:29)
[2019-03-19] MEDS: PANTOprazole 40 MG TAB PO SCH (08:29)
[2019-03-19] MEDS: ASPIRIN 81 MG ECTAB PO SCH (08:29)
[2019-03-19] MEDS: BuPROPion SR 150 MG TABCR PO SCH (08:29)
[2019-03-19] MEDS: POLYETHYLENE (MIRALAX) 17 GM PACK PO SCH (08:29)
[2019-03-19] MEDS: CHOLECALCIFEROL 1,000 UNITS TAB PO SCH (08:29)
--- NOTE | 2019-03-19 10:33 | Orthopedic Progress Note ---
Date of Service March 19, 2019 Assessment & Plan (1) Closed left hip fracture: POD #3 s/p Left hip hemiarthroplasty. Continue pain control. Continue diet. Total hip precautions. Weightbearing as tolerated left lower extremity. We will initially require walker and possible assistance. PT/OT. Ice to the left hip/back as needed. May shower. Silverlon dressing applied (waterproof). Can keep this dressing on until f/u appointment with Dr Hoffman. DVT prophylaxis: TEDs for a minimum 2 weeks on the left leg, or until swelling subsides. SCDs while in the hospital. Aspirin 81 mg twice a day for 6 weeks. Continue care per the primary Hospitalist service. Discharge planning. Subjective Patient sitting up in chair. at bedside. Had PT in AM and had sponge bath. She was hoping for a shower. Dressings have not yet been changed. Has some back discomfort with hx of L spine surgery. Pain is controlled with PO medications. Ice also helping. Tolerating diet. Denies f/c/s, CP, SOB, lightheadedness, or dizziness. Physical Exam Physical Exam: Left hip dressing removed. Dry blood on dressing. No active drainage. Zip line intact. No significant redness or warmth. Able to transfer chair to bed with CG and use of walker. Follows hip precautions. NV intact B LE. Knee high vitor hose donned. Minimal B LE pitting edema. Sensation intact to light touch. Palpable DP and PT pulses. 5/5 B EHL, TA, gastroc strength. Calves soft, neg homans. Results & Data Vital Signs (Past 12 Hours) Vital Signs Temp Pulse Resp BP BP Pulse Ox 03/19/19 08:00 36.7 C 91 H 17 109/61 94 03/18/19 23:54 37 C 93 H 18 132/73 94
--- NOTE | 2019-03-19 13:11 | Discharge Summary ---
Date of Service March 19, 2019 Admission HPI Per Admitting Provider Patient is a 73 years old female with past medical history of bilateral knee replacement, dyspnea on exertion, who presents today to the emergency room with complaint of an episode of fall that occurred around 12 PM today approximately hour ago. Patient noted that she was washing her windows and she tripped over a hose and fell on the carpeted floor. Patient reports that she fell on her buttock and complaining of having left hip pain. The patient relates that pain is 10 out of 10 in severity. She noted that that motion exacerbated the symptoms, stated that she has not attempted to walk since the fall. Patient denies any knee or ankle pain. There is no bruises over her body. She denies taking blood thinners. Patient denies having history of left hip surgery. Patient denies fever chills chest pain shortness of breath abdominal pain frequency urgency syncope near syncope nausea vomiting hematemesis hematuria dysuria hemoptysis or melena. Labs are reviewed and it shows white blood cell count of 4.78, hemoglobin 13.3, hematocrit 38.5, platelets 231, PT 10.3, INR 1, APTT 24.8, sodium 137, potassium 4.1, chloride 104, carbon dioxide 29, anion gap 4 BUN 18 creatinine 0.83 GFR 70.9 glucose 90 and calcium 9.2. Urine yellow clear positive for urine nitrates and negative for leukocyte esterase there are no white blood cells and urine there is some bacteria 4+. X-rays of the left hip shows a subcapital left hip fracture. Chest x-ray shows mild basilar atelectatic changes. Decision was made to admit patient for orthopedic evaluation and surgery of the fracture of the left hip and management of her other comorbidities. Principal Diagnosis Left hip fracture, fall Discharge Exam Constitutional WD/WN, vitals as above Eyes + anicteric sclerae ENMT external ear and nose normal, oropharynx normal Neck trachea midline, no thyromegaly Respiratory normal respiratory effort, lungs clear to auscultation Cardiovascular RRR, no murmur, no edema Gastrointestinal (Abdomen) normal bowel sounds, soft, nontender, no hepatosplenomegaly Musculoskeletal Extremities: + extremities abnormal to inspection (Left hip with dressing in place c/d/i, can ankle dorsiflex and plantarflex), no cyanosis and no clubbing Skin no rashes, warm and dry Neurologic moves all extremities and awake; no focal motor deficits Psychiatric A+Ox3, euthymic affect Discharge Data Allergies Allergy/AdvReac Type Severity Reaction Status Date / Time tiotropium Allergy Unknown ITCHING Verified 03/15/19 13:29 quetiapine AdvReac Severe N/V Verified 03/15/19 13:29 EPIDURAL Allergy Severe SEVERE Uncoded 03/15/19 13:29 ITCHING EVERYWHERE Consultations 03/15/19 14:07 ED Decision to Admit Stat 03/15/19 18:19 Consult General Surgery Routine 03/16/19 20:03 Consult Case Management - Discharge Planning Routine Procedures Performed Operation Date: 03/16/19 11:15 Actual Procedures p Bipolar Hip Prosthesis, Left(Left) - Jacques Hoffman MD Ordered Studies CXR Hip xrays Femur xray Hospital Course (1) Closed fracture of left hip: Patient admitted with mechanical fall after tripping and landing on her left hip, sustaining a left subcapital hip fracture -s/p ORIF on 03/16 DOing well post-op with some intermittent confusion and urine retention which is now resolved Hgb only mild drop to 10.7 from 12 PT/OT consulted- rehab placement -Appreciate orthopedics consultation and postoperative management -Continue pain control but NO opioids as having intermittent confusion and urinary retention -cont tylenol 1000mg po q8h prn pain only -DVT prophylaxis with TEDs, ASA 81mg bid x 6 weeks (2) UTI (urinary tract infection): Urinalysis abnormal upon admission -urine culture with pansensitive E. coli -convert ceftriaxone to po keflex 500mg bid to complete 7 day course-needs 3 more days (3) Fall: Mechanical fall at home (4) HTN (hypertension), benign: Blood pressures normal to low-normal -continue to hold lisinopril/HCTZ nd can restart at rehab if BPs creep back up again (5) GERD (gastroesophageal reflux disease): -Stable -Continue PPI twice daily (6) Hyperlipidemia: -Continue home pravastatin 40 mg p.o. nightly (7) Anxiety disorder: Stable -Continue home bupropion 150 mg SR p.o. twice daily -Continue home trazodone 100 mg p.o. nightly -ok to give hydroxyzine prn anxiety as per home med (8) Vitamin D deficiency: Vit D level mildly low at 23 -started Vit D 1000 units po once daily (9) DVT prophylaxis: SCDs,ASA Disposition-stable for dc to rehab today Total Time Total Time Spent Total Time Spent (In Minutes): >30 min Total Time Includes: Examination of the Patient, Discharge Planning and Medication Reconciliation Discharge Plan Discharge Items Patient Disposition: Transfer Snf Fac Reason For Visit: LEFT HIP FRACTURE Discharge Diagnosis: Left hip fracture Condition on Discharge: Good Activity: As commented below Non-emergency contact: Primary Care Provider and Surgeon Call non-emergency contact if: you have any medication questions, your symptoms worsen, your pain is not controlled and you have a fever Follow-up/Referrals: Sanjuana Cha MD [Primary Care Provider] - (Please follow up after discharge from rehab.) Susie Grewal P.A.-CAbhi [Physician Lead Generation Specialist] - 03/31/19 1:30 pm Diet: Heart Healthy [place] Attending Provider Instructions: You were admitted for a fall resulting in a fractured left hip. Your vitamin D level was low and you were started on Vit D 1000 units once daily. Your blood pressures are still on the low side of normal and you should continue to HOLD OFF on taking your BP pill until your doctor tells you to restart it. Please finish out the course of antibiotics for your UTI. Fi[place] Eating Disorder Psychologist Provider Instructions: New Medicine: * You will likely be taking one or more of these medicines: 1. Percocet/Tramadol or Tylenol for pain - Take, as directed, when you need it, every four to six hours to control your pain. 3. Lovenox - Thins your blood to lessen the chance of forming a blood clot. Take as directed. * The most common side effects of pain medicine and iron are nausea and constipation. If nausea or constipation is too much of a problem or if you have any questions about your new medicines or doses, call [facility] at . We will try to help you manage these issues. "VERY IMPORTANT TO READ AND REVIEW" Blood Clots and Blood Thinning Medicine: * Take Aspirin 81 mg twice daily for 6 weeks after surgery during the immediate post-operative period to lessen the risk of blood clots forming in your legs and/or lungs. Lovenox is usually given for 2-4 weeks after surgery. Pain: * The immediate post-operative period after hip replacement surgery is often quite painful. * You are given a prescription for pain medicine. You should take it, as directed, when you need it, especially before physical therapy and before going to bed. Pain that interferes with sleep is very common and can last several months. * You will likely need pain medicine for the first two to four weeks. It will not stop all of the pain. The pain will lessen and as you feel better, you may change to milder pain medicine such as Tylenol. * The most common side effects of pain medicine are nausea and constipation, so don't take more than you need. Physical Therapy: * Follow the "Hip Precautions Instructions." * In some cases, the social media marketing manager at the hospital will arrange to have a therapist come to your house for the first couple of weeks to help you learn these skills. * You need to practice on your own or with the help of a family member as needed. * When you learn these skills, most of the therapy can be done on your own. Home Exercise: * You were shown a series of exercises in the hospital. Do these exercises three to four times each day including the exercises you were shown in physical therapy. Walking: * Get up and walk several times each day. For the first four weeks, try not to stand or walk for more than one hour at a time. If you do stand or walk for more than one hour, you will not hurt anything, but your leg will likely swell. * As you feel comfortable, you may change from the walker or crutches to a cane and then to independent walking. SELF CARE INSTRUCTIONS AFTER TOTAL HIP REPLACEMENT Until the incision and soft tissues around your hip have healed, there is a possibility that the hip prosthesis could dislocate. A. Observe the following precautions to prevent dislocation: 1. Don't bend your hip greater than 90 degrees. 2. Avoid crossing your legs or ankles while standing or lying. 3. Sit with your feet placed 6 inches apart. 4. When sitting, keep your knees below your hips. Sit on a firm surface, avoid deep, soft chairs and couches. Use an elevated toilet seat in the bathroom. 5. Don't bend over at the waist. Use a long handled shoehorn and a sock aid to help you put on your shoes and socks. A partnership marketing manager can help you berry picker objects that are too high or too low to reach. 6. Keep car riding to a minimum for at least one month after surgery. B. Your balance may be shaky for a while. Use crutches or a walker until directed by your doctor. C. Use hand rails when walking on stairs. D. Wear low heeled shoes with non-slip soles. E. Be sure that your floors are free of things that could trip you - throw rugs, electrical cords, small objects. Avoid wet and waxed floors, especially with crutches and canes. F. Try to walk several times a day with rest periods between. G. Continue with all the exercises taught to you in the hospital. Again, make walking a part of your daily routine. VERY IMPORTANT TO READ AND REVIEW A. Take Aspirin to thin your blood as instructed after surgery. B. There are a few signs you need to watch for after you are home. If you notice any of the followin. Increased severe hip pain. Some pain is expected especially when you exercise. 2. Increased swelling in your leg or knee; pain or swelling of the calf muscle in either lower leg. 3. Any fluid drainage from the incision. 4. Shortness of breath or chest pain. TEDs/Elastic Stockings: * The white elastic stockings help limit swelling and prevent blood clots from forming in your legs. The more you wear them, the more they work. * Wear them for six weeks. Prevention of Infection: * Take antibiotics one hour before any dental cleaning, dental work, urological procedure, gastrointestinal procedure or any invasive surgery in order to prevent your new joint from getting infected. * You may get the antibiotics from the doctor performing the procedure or we will call in a prescription to the pharmacy of your choice. Call the office for a prescription at least 2 days prior to your appointment. Things to Watch For: * Drainage from the incision site that occurs more than one week after your surgery. * Severely increased leg pain or swelling. * Increased redness at the incision site. * Fever above 101 degrees Fahrenheit. * Unusual chest pain or shortness of breath. * Unusual pain or burning with urination. Pending Studies at Discharge: No Stand-Alone Forms: [facility] Skilled Items Patient informed of condition?: Yes DNR: No Discharge Level of Care: Skilled Communicable Disease: No Discharge Prognosis: Improving Lines: None Urinary Catheter: No Medications and DC Order Prescriptions: New acetaminophen [Tylenol Extra Strength] 500 mg Tablet 1,000 mg PO Q8H PRN (Reason: pain) Qty: 30 RF: 0 cephalexin 500 mg Capsule 500 mg PO BID Qty: 6 RF: 0 aspirin [Ecotrin Low Strength] 81 mg Tablet,Delayed Release (Dr/Ec) 81 mg PO BID 42 Days Qty: 84 RF: 0 polyethylene glycol 3350 [Miralax] 17 gram Powder In Packet 17 g PO BID Qty: 30 RF: 0 cholecalciferol (vitamin D3) [Vitamin D3] 1,000 unit (25 mcg) Tablet 1,000 unit PO QAM Qty: 30 RF: 0 Continued trazodone 100 mg tablet 100 mg PO HS RF: 0 omeprazole 20 mg capsule,delayed release(DR/EC) 20 mg PO BID RF: 0 hydroxyzine pamoate 25 mg capsule 25 mg PO HS PRN (Reason: Anxiety) RF: 0 bupropion HCl 150 mg tablet sustained-release 12 hr 150 mg PO BID RF: 0 pravastatin 40 mg tablet 40 mg PO HS RF: 0 Discontinued lisinopril-hydrochlorothiazide 10-12.5 mg tablet 1 tab PO DAILY RF: 0 Discharge Orders: Discharge Order (Routine); Ordered 03/19/19 Ordered By: Darby Simpson Admission Data Admit Date/Time: 03/15/19 16:56 Attending Provider: Darby Simspon Admit Provider: Alyson Danielle Primary Care Provider: Sanjuana Cha Other Providers: Jacques Hoffman ; Alyson Danielle ; [place] ; [facility]
== END 2019-03-19 18:00 | DRG 470 ==
LOC: ED 12:55 → SUATTDRO 16:56 → 2W 16:56 → 3W 03-16 19:50

== ENCOUNTER 2024-10-20 12:21 | Observation (INO) ==
--- NOTE | 2024-10-20 13:05 | Emergency Department Note ---
Impression & Plan Syncope, Dizziness, CHI (closed head injury), Acute hyponatremia ED Provider Note NAME: JUSTIN MOSER AGE: 79 SEX: F : 1945 ARRIVES VIA: Walk-In INFORMANT: Patient, ED PROVIDER(S): Osman Ha MD CHIEF COMPLAINT: Syncope, dizziness MEDICAL DECISION MAKING: Patient presents due to concern for dizziness and syncope. IV was established and blood work was obtained. Given the patient's age and head strike patient did have a CT of the head performed as well. No active headache. Patient with a normal white count H&H and platelet count. The patient was ordered IV fluids. Kidney function was unremarkable. Mild hyponatremia at 134. Troponin negative. The patient's chest x-ray without obvious pneumonia or pneumothorax. CT head negative. Given the patient's recurrence of syncope and continued dizziness I did speak with the on-call hospitalist service Dr. Bang and the patient was admitted to the medicine service. Discussion w/ other healthcare providers: Dr. Bang inpatient medicine service Prior /Outside records reviewed: None Differential diagnosis: Vasovagal event, dehydration, infection, hypoglycemia, electrolyte abnormalities, arrhythmia, pulmonary embolism, seizure among others were considered. Diagnostics, as interpreted by me: ECG: Sinus rhythm, rate of 68, normal intervals, normal axis no ST elevations. Cardiac monitoring: An order was placed for continuous cardiac monitoring. The monitor shows a rate of 69 with sinus rhythm. Patient was placed on pulse oximetry Medical decision rules: Malian head CT rule Imaging studies: I informally interpreted the patient's CT head does not show obvious ICH with formal report to follow. HPI: Patient presents due to concern for dizziness and syncope. The patient reports that she has passed out twice since . The patient reports that on Sunday when she passed out she struck the right top side of her head. Patient reports that she does not take any blood thinning medications. Patient denies any current headache. No numbness tingling or focal weakness. Patient denies any nausea or vomiting. Patient states that she has been dizzy all weekend. The patient denies any recent changes in medications. Patient denies any chest pains or shortness of breath. No numbness tingling or focal weakness. She reports that she does have a prior history of aneurysm status post a procedure completed years ago. Patient denies PAST MEDICAL HISTORY: See Below PAST SURGICAL HISTORY: See Below SOCIAL HISTORY: See Below HOME MEDICATIONS: See Below ALLERGIES: See Below VITALS: See Below PHYSICAL EXAMINATION: GENERAL: NAD, non-toxic. EYE EXAM: Normal conjunctiva. PERRL, no anisocoria and EOM's grossly intact w/o pain. Head: Normocephalic atraumatic. OROPHARYNX: Moist mucus membranes, grossly normal dentition. NECK: Trachea midline, no stridor. Supple, no nuchal rigidity, no adenopathy, non-tender. No signs of meningismus. FROM of the neck with good chin to chest and neck extension. No midline C-spine TTP. LUNGS: Clear to auscultation. Normal chest wall mechanics. HEART: NSR, no MRG. ABDOMEN: Abdomen soft, non-tender, no masses, no rebound or guarding. BACK: No CVA TTP. SKIN: No rashes and no bruising. UPPER EXTREMITIES: Upper extremities are grossly normal. LOWER EXTREMITIES: Grossly normal, no edema. NEURO EXAM: A&O x3, cranial nerves II-XII grossly intact, normal speech, moves all 4 extremities. Past Med/Surg History Problem List (Updated 10/22/24 @ 23:18 by Osman Ha MD) Acute hyponatremia (Acute) CHI (closed head injury) (Acute) Dizziness (Acute) Syncope (Acute) Vertigo GERD (gastroesophageal reflux disease) Hyperlipidemia Benign essential hypertension Vitamin D deficiency Anxiety disorder UTI (urinary tract infection) (Acute) Bilateral knee pain (Acute) Anemia Medical History History of back problems Depression Pre-diabetes Surgical History History of left cataract surgery History of colonoscopy History of surgery LEFT HIP (HARDWARE) H/O rotator cuff surgery R&L H/O cerebral aneurysm repair H/O spinal fusion X5 H/O total knee replacement BILAT Family History Sister Family history of diabetes mellitus Mother Family history of diabetes mellitus Social History Smoking Status: Former smoker Second Hand Exposure: No; Do You Dip or Chew Tobacco: No; Hx Alcohol Use: No Hx Substance Use: No Preferred Language: Lebanese Communication Ability: Effective Rn Community Health Required: No Beliefs That Will Affect Care: None marital status: Current Living Situation: Spouse Current Living Situation Comment: House Feels Safe at Home: Yes Assistive Devices: None Allergies Allergies Allergy/AdvReac Type Severity Reaction Status Date / Time tiotropium Allergy Intermediate ITCHING Verified 07/27/23 00:24 quetiapine AdvReac Intermediate N/V Verified 07/27/23 00:24 EPIDURAL Allergy Severe SEVERE Uncoded 07/27/23 00:24 [address] WITH KNEE REPLACEMENTS Home Meds Home Medications Medication Instructions Recorded Confirmed omeprazole 20 mg capsule,delayed 40 mg PO DAILY 03/15/19 10/20/24 release trazodone 100 mg tablet 100 mg PO HS 03/15/19 10/20/24 bupropion HCl 150 mg tablet,12 hr 150 mg PO BID 03/16/19 10/20/24 sustained-release pravastatin 40 mg tablet 80 mg PO HS 03/16/19 10/20/24 metformin 500 mg tablet 500 mg PO QAM 02/02/20 10/20/24 buspirone 5 mg tablet 5 mg PO TID 10/20/24 10/20/24 lisinopril 20 1 tab PO DAILY 10/20/24 10/20/24 mg-hydrochlorothiazide 12.5 mg tablet Previous Rx's Medication Instructions Recorded acetaminophen 500 mg tablet 1,000 mg (2 x 500 mg) PO Q8H PRN 03/19/19 (Tylenol Extra Strength) pain #30 tabs cholecalciferol (vitamin D3) 25 1,000 unit PO QAM #30 tabs 03/19/19 mcg (1,000 unit) tablet (Vitamin D3) amoxicillin 500 mg capsule 500 mg PO BID #6 caps 10/21/24 scopolamine base 1 mg over 3 days 1 patch transdermal Q72H #5 ea 10/21/24 transdermal patch (Transderm-Scop) Results & Data (ED) Vital Signs Vital Signs - 24 hr 10/20/24 12:35 Temperature 36.6 C Temperature Source Oral Pulse Rate 69 Respiratory Rate 18 Respiratory Effort / Characteristics Non-Labored Spontaneous Respiratory Depth Normal Respiratory Pattern Regular Blood Pressure 125/77 Blood Pressure Mean 93 Pulse Oximetry 96 Oxygen Delivery Method Room Air Sepsis Recent Fever Within 48 Hours No Sepsis New/Unexplained Change in Mental Status N/A Sepsis Action Taken by Nursing No Action Required Home Medications Current Medication List: was personally reviewed by me Laboratory Data Attestation: I reviewed the patient's lab results. 10/20/24 13:16 10/21/24 05:37 Lab Results 10/20/24 10/20/24 10/21/24 Range/Units 13:16 Unknown 05:37 WBC 6.21 (4.8-10.8) K/ul RBC 4.23 (4.20-5.40) M/uL Hgb 13.7 (12.0-16.0) g/dl Hct 39.1 (37.0-47.0) % MCV 92.4 (80.0-100.0) fL MCH 32.4 (25.0-34.0) pg MCHC 35.0 (32.0-36.0) g/dL RDW Std Deviation 45.9 (36.4-46.3) fL RDW Coeff of Van 13.5 (11.5-14.5) % Plt Count 225 (130-400) K/uL MPV 9.7 (9.4-12.4) fL Immature Gran % (Auto) 0.2 % Neut % (Auto) 58.8 % Lymph % (Auto) 32.7 % Benson % (Auto) 7.6 % Eos % (Auto) 0.2 % Baso % (Auto) 0.5 % Neut # (Auto) 3.66 (1.40-6.50) K/uL Lymph # (Auto) 2.03 (1.20-3.40) K/uL Benson # (Auto) 0.47 (0.11-0.59) K/uL Eos # (Auto) 0.01 (0.00-0.50) K/uL Baso # (Auto) 0.03 (0.00-0.20) K/uL Immature Gran # (Auto) 0.01 (0.01-0.20) K/uL PT 10.6 (9.0-12.0) Seconds INR 1.0 (0.9-1.1) APTT 24 (21-31) Seconds PTT Ratio 0.9 Sodium 134 L 138 (136-145) mmol/L Potassium 4.1 4.2 (3.5-5.1) mmol/L Chloride 98 104 (98-107) mmol/L Carbon Dioxide 30 30 (21-32) mmol/L Anion Gap 6 4 (3-11) BUN 14 14 (6-23) mg/dl Creatinine 0.74 0.77 (0.6-1.2) mg/dl Est Cr Clr Drug Dosing 61.1 52.8 ml/min eGFR 83.28 79.40 BUN/Creatinine Ratio 18.9 18.2 (10-20) Glucose 92 102 H (70-99(Fasting)) mg/dl Calcium 9.8 9.0 (8.6-10.3) mg/dl Magnesium 1.7 (1.7-2.4) mg/dl Total Bilirubin 0.4 (0.2-1.0) mg/dl AST 23 (13-39) U/L ALT 17 (7-52) U/L Alkaline Phosphatase 84 (34-104) U/L Troponin I High Sens < 2.3 (0-14) pg/ml Total Protein 8.1 (6.0-8.3) gm/dl Albumin 4.7 (3.4-5.0) gm/dl Globulin 3.4 (2.5-4.0) gm/dl Albumin/Globulin Ratio 1.4 (0.9-2) Vitamin B12 496 (180-914) pg/ml Folate 16.72 (>5.38) ng/ml TSH 1.437 (0.300-4.500) uIu/ml Urine Color Yellow Urine Appearance Clear (Clear) Urine pH 7.0 (4.5-7.5) Ur Specific [place] 1.007 (1.000-1.030) Urine Protein Negative (Negative) Urine Glucose (UA) Negative (Negative) Urine Ketones Negative (Negative) Urine Blood Negative (Negative) Urine Nitrite Negative (Negative) Urine Bilirubin Negative (Negative) Urine Urobilinogen Negative (Negative) Ur Leukocyte Esterase 3+ H (Negative) Urine WBC (Auto) >50 H (0-5) /hpf Urine RBC (Auto) 0-2 (0-2) /hpf U Hyaline Cast (Auto) 0-2 (0-2) /lpf U Epithel Cells (Auto) 0-2 (0-2) /hpf Urine Bacteria (Auto) 4+ H (None Seen) Lyme Disease Screen Negative (Negative) Administered Medications Discontinued Medications Bupropion HCl (Bupropion Sr 150 Mg Tabcr) 150 mg PO BID [facility] Stop: 11/19/24 20:59 Last Admin: 10/20/24 20:06 Dose: Not Given Documented By: EMILY Bupropion HCl (Bupropion Sr 150 Mg Tabcr) 150 mg PO BID17 [facility] Stop: 11/20/24 08:59 Last Admin: 10/21/24 15:05 Dose: 150 mg Documented By: Admin: 10/21/24 07:45 Dose: 150 mg Documented By: LANA Ciprofloxacin (Ciprofloxacin 500 Mg Tab) 500 mg PO BID [facility]; Protocol Stop: 10/26/24 10:14 Last Admin: 10/21/24 10:40 Dose: 500 mg Documented By: LANA Sodium Chloride (Nss) 500 mls @ 999 mls/hr IV .Q31M ONE Stop: 10/20/24 13:24 Last Infusion: 10/20/24 14:04 Dose: Infused Documented By: Admin: 10/20/24 13:32 Dose: 999 mls/hr Documented By: KANWAL Ioversol (Optiray 320 125ml) 118 ml IV ONCE ONE Stop: 10/20/24 15:24 Last Admin: 10/20/24 15:23 Dose: 118 ml Documented By: ROBERT Lorazepam (Lorazepam 0.5 Mg Tab) 0.25 mg PO Q8H PRN PRN Reason: anxiety/dizziness Stop: 11/19/24 16:19 Last Admin: 10/20/24 21:16 Dose: 0.25 mg Documented By: EMILY Mandujano (Check Scopolamine Patch Placement) 1 each N/A QS [facility] Stop: 11/19/24 16:19 Last Admin: 10/21/24 15:05 Dose: 1 each Documented By: Admin: 10/21/24 07:45 Dose: 1 each Documented By: Admin: 10/21/24 00:26 Dose: 1 each Documented By: Admin: 10/20/24 16:56 Dose: Not Given Documented By: LANA Mandujano (Remove Transderm-Scop Patch) 1 each N/A Q72H [facility] Stop: 11/19/24 16:29 Last Admin: 10/20/24 16:56 Dose: Not Given Documented By: KEG Scopolamine (Scopolamine 1 Mg/72 Hr Tdsy Patch) 1 patch TD Q72H [facility] Stop: 11/19/24 16:29 Last Admin: 10/20/24 16:55 Dose: 1 patch Documented By: LANA Vitamin D (Cholecalciferol 25 Mcg (1000 Units) Tab) 25 mcg PO QAM ROSANNA Stop: 11/20/24 08:59 Last Admin: 10/21/24 07:45 Dose: 25 mcg Documented By: LANA Imaging Data Radiologist's Impression: 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 No effusion, consolidation, or pneumothorax. IMPRESSION: No acute findings. ACT 112: Negative or not required by law. Electronically signed by: Moises Pang M.D. 10/20/2024 2:31 PM Dictated: 10/20/24 143 Transcribed: 10/20/241429 CT head/brain wo con CLINICAL HISTORY: fall, CHI. TECHNIQUE: Multiple axial CT images of the head were obtained without contrast. A dose lowering technique was utilized adhering to the principles of ALARA. CT DOSE: 625.8 mGy.cm COMPARISON: 07/26/2023 FINDINGS: Stable embolization coil centrally at the middle cranial fossa causes spray artifact at that level. No intracranial hemorrhage seen. No mass effect, midline shift, or hydrocephalus. Stable mild chronic small vessel ischemic changes. No skull fracture seen. Visualized paranasal sinuses and mastoid air cells are clear. IMPRESSION: No acute findings. ACT 112: Negative or not required by law. The above report was generated using voice recognition software. It may contain grammatical, syntax or spelling errors. Electronically signed by: Moises Pang M.D. 10/20/2024 1:37 PM Dictated: 10/20/241334 Transcribed: 10/20/241334 Discharge Plan Visit Data Chief Complaint: Dizziness Stated Complaint: DIZZY,NAUSEA ED Provider: Osman Ha Discharge Problem: Syncope, Dizziness, CHI (closed head injury), Acute hyponatremia Patient Disposition: Admitted As Inpatient Discharge Instructions Interventions: ED Discharge Assessment Last Done: 10/20/24 15:44 Discharge Problem: Syncope Qualifiers: Syncope type: unspecified Qualified Code(s): R55 - Syncope and collapse CHI (closed head injury) Qualifiers: Encounter type: initial encounter Qualified Code(s): S09.90XA - Unspecified injury of head, initial encounter
--- NOTE | 2024-10-20 13:18 | Electrocardiogram Report ---
Test Reason : Blood Pressure : */* mmHG Vent. Rate : 68 BPM Atrial Rate : 68 BPM P-R Int : 150 ms QRS Dur : 70 ms QT Int : 404 ms P-R-T Axes : 31 25 51 degrees QTcB Int : 429 ms Sinus rhythm with Premature supraventricular complexes Low voltage QRS Borderline ECG When compared with ECG of 26-Jul-2023 22:22, Premature supraventricular complexes are now Present Confirmed by Kyle Narvaez ([id number]) on 10/20/2024 1:18:15 PM Referred By: Confirmed By: Kyle Narvaez
[2024-10-20] MEDS: SODIUM CHLORIDE 0.9% 500 ML IV ONE (13:32)
--- NOTE | 2024-10-20 13:39 | CT Scan Report ---
CT head/brain wo con CLINICAL HISTORY: fall, CHI. TECHNIQUE: Multiple axial CT images of the head were obtained without contrast. A dose lowering tech nique was utilized adhering to the principles of ALARA. CT DOSE: 625.8 mGy.cm COMPARISON: 07/26/2023 FINDINGS: Stable embolization coil centrally at the middle cranial fossa causes spray artifact at luma t level. No intracranial hemorrhage seen. No mass effect, midline shift, or hydrocephalus. Stable mil d chronic small vessel ischemic changes. No skull fracture seen. Visualized paranasal sinuses and mas toid air cells are clear. IMPRESSION: No acute findings. ACT 112: Negative or not required by law. The above report was generated using voice recognition software. It may contain grammatical, syntax o r spelling errors. Electronically signed by: Moises Pang M.D. 10/20/2024 1:37 PM
[2024-10-20 13:42] LABS: Basophils # (auto) 0.03 K/uL (0.00-0.20); Basophils % (auto) 0.5 %; Eosinophils # (auto) 0.01 K/uL (0.00-0.50); Eosinophils % (auto) 0.2 %; Hematocrit (blood only) 39.1 % (37.0-47.0); Hemoglobin 13.7 g/dl (12.0-16.0); Immature Granulocytes # (auto) 0.01 K/uL (0.01-0.20); Immature Granulocytes % (auto) 0.2 %; Lymphocytes # (auto) 2.03 K/uL (1.20-3.40); Lymphocytes % (auto) 32.7 %; Mean Corpuscular Hemoglobin 32.4 pg (25.0-34.0); Mean Corpuscular Volume 92.4 fL (80.0-100.0); Mean Platelet Volume 9.7 fL (9.4-12.4); Monocytes # (auto) 0.47 K/uL (0.11-0.59); Monocytes % (auto) 7.6 %; Neutrophils # (auto) 3.66 K/uL (1.40-6.50); Neutrophils % (auto) 58.8 %; Platelet Count 225 K/uL (130-400); RDW Coefficient of Variation 13.5 % (11.5-14.5); RDW Standard Deviation 45.9 fL (36.4-46.3); Red Blood Count 4.23 M/uL (4.20-5.40); White Blood Count 6.21 K/ul (4.8-10.8)
[2024-10-20 14:08] LABS: Alanine Aminotransferase 17 U/L (7-52); Albumin Globulin Ratio 1.4 (0.9-2); Albumin Level 4.7 gm/dl (3.4-5.0); Alkaline Phosphatase 84 U/L (34-104); Anion Gap 6 (3-11); Aspartate Aminotransferase 23 U/L (13-39); BUN Creatinine Ratio 18.9 (10-20); Bilirubin,Total 0.4 mg/dl (0.2-1.0); Blood Urea Nitrogen 14 mg/dl (6-23); Calcium 9.8 mg/dl (8.6-10.3); Carbon Dioxide 30 mmol/L (21-32); Chloride 98 mmol/L (98-107); Creatinine Clr Calc Pharmacy 61.1 ml/min; Globulin 3.4 gm/dl (2.5-4.0); Glucose 92 mg/dl (70-99(Fasting)); Potassium 4.1 mmol/L (3.5-5.1); Sodium 134 mmol/L (136-145); Total Protein 8.1 gm/dl (6.0-8.3)
[2024-10-20 14:11] LABS: Partial Thromboplastin Ratio 0.9; Partial Thromboplastin Time 24 Seconds (21-31); Prothrombin Time 10.6 Seconds (9.0-12.0); Troponin I High Sensitivity < 2.3 pg/ml (0-14)
--- NOTE | 2024-10-20 14:32 | History & Physical Report ---
Date of Service October 20, 2024 Assessment & Plan (1) Benign essential hypertension: (2) Depression: Plan 79-year-old female presents with syncope and collapse with out injury. No significant causes initially determined in the emergency department. This is a recurrence from July episode. 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 She has seen vestibular therapy in the past. In the past she has been on chronic daily meclizine but has not taken any as her prescription out for the last few weeks. Patient states that vertigo is initial presenting symptom with her aneurysm. Patient states that she is dizzy anytime she moves her head from [id number] looks left right or up and gets up from sitting position. She states that her dizziness is so profound that she cannot drive a car at this time she does have mild hyponatremia but it is 134. Initial cardiac rhythm is normal sinus #Syncope and collapse patient be monitored she will have a TSH checked she will have an echocardiogram obtained look for valvular heart disease or outflow tract disease. CT angiography will be performed. Lyme disease is pending on presentation Patient with B12 folic acid checked. She will be started on Transderm scopola mine with as needed Ativan for dizziness for backup. Patient has significant anxiety because of the of her son. Patient will PT OT evaluation and consideration of Juan Manuel maneuver. Patient states she is on her neurology evaluation. Neck CTA performed in July did show no significant carotid artery stenosis but there was significant spinal disease with spinal stenosis C4-5-6 and T1. MRI is recommended at that time but with her cerebral artery coilng it is unclear whether patient can be safely MRI'd, MRI stated would need op report to be sure and not clear if this impacts her current condition #Hypertension. Patient's combination lisinopril/hydrochlorothiazide to be held at this time #Depression patient's trazodone and BuSpar will be held we will continue with her bupropion, left backup Ativan for dizziness and may be #Prediabetes patient's metformin is held will monitor blood glucoses and offer sliding scale if her glucoses are over 150 consistently DVT prevention is heparin therapy History of Present Illness Primary Care Provider: Sanjuana Cha MD 79-year-old female presents emergency department with syncope she did strike her head. She has similar episode in July of this year where she was treated and released in the emergency department. She denies significant Presyncope symptoms warning signs. She has not taken any medications that directly impact her cardiac rhythm. There is no recent echocardiogram or Lyme test on her chart. Patient's had previous aneurysmal treatment in her brain in 2013 and lumbar spinal surgeries in the past. In the emergency department initial evaluation did not reveal any significant laboratory dyscrasias CT head was unremarkable and EKG showed normal sinus rhythm. Allergies Allergy/AdvReac Type Severity Reaction Status Date / Time tiotropium Allergy Intermediate ITCHING Verified 07/27/23 00:24 quetiapine AdvReac Intermediate N/V Verified 07/27/23 00:24 EPIDURAL Allergy Severe SEVERE Uncoded 07/27/23 00:24 ITCHING EVERYWHERE WITH KNEE REPLACEMENTS Home Medications Medication Instructions Recorded Confirmed Type omeprazole 20 mg capsule,delayed 40 mg PO DAILY 03/15/19 10/20/24 History release trazodone 100 mg tablet 100 mg PO HS 03/15/19 10/20/24 History bupropion HCl 150 mg tablet,12 hr 150 mg PO BID 03/16/19 10/20/24 History sustained-release pravastatin 40 mg tablet 80 mg PO HS 03/16/19 10/20/24 History acetaminophen 500 mg tablet 1,000 mg (2 x 500 mg) PO Q8H PRN 03/19/19 10/20/24 Rx (Tylenol Extra Strength) pain #30 tabs cholecalciferol (vitamin D3) 25 1,000 unit PO QAM #30 tabs 03/19/19 10/20/24 Rx mcg (1,000 unit) tablet (Vitamin D3) metformin 500 mg tablet 500 mg PO QAM 02/02/20 10/20/24 History buspirone 5 mg tablet 5 mg PO TID 10/20/24 10/20/24 History lisinopril 20 1 tab PO DAILY 10/20/24 10/20/24 History mg-hydrochlorothiazide 12.5 mg tablet Past Med/Surg History Problem List (Updated 03/15/24 @ 00:09 by Jos Macias) GERD (gastroesophageal reflux disease) Hyperlipidemia Benign essential hypertension Vitamin D deficiency Anxiety disorder UTI (urinary tract infection) (Acute) Bilateral knee pain (Acute) Anemia Medical History History of back problems Depression Pre-diabetes Surgical History History of left cataract surgery History of colonoscopy History of surgery LEFT HIP (HARDWARE) H/O rotator cuff surgery R&L H/O cerebral aneurysm repair H/O spinal fusion X5 H/O total knee replacement BILAT Family History Sister Family history of diabetes mellitus Mother Family history of diabetes mellitus Social History Smoking Status: Never smoker Second Hand Exposure: No; Do You Dip or Chew Tobacco: No; Hx Alcohol Use: No Hx Substance Use: No Preferred Language: Luxembourgish Communication Ability: Effective Rn Perioperative Required: No Beliefs That Will Affect Care: None marital status: Current Living Situation: Spouse Current Living Situation Comment: House Feels Safe at Home: Yes Assistive Devices: Glasses Review of Systems Review of Systems: Mild distress and fatigue no headache, no visual changes, specifically no double vision no speech or swallowing issues no chest pain, pressure or palpitations no shortness of breath, cough or wheezes no abdominal pain, nausea or vomiting, diarrhea or constipation no dysuria, hematuria or frequency no focal joint pain or swelling no back pain, CVA tenderness or radicular pain no bruising, bleeding or rashes no focal signs of weakness or numbness or altered sensation complaints of anxiety that is ongoing Physical Exam Physical Exam: The patient appeared well nourished and normally developed. Vital signs as documented. Symptoms are reproduced with left and right vision or blurred vision and symptoms are reproduced with head movement but not lying down sitting up no nystagmus Head exam is normocephalic atraumatic Neck is without JVD, thyromegaly, or carotid bruits. Lungs are clear to auscultation, no focal loss of breath sounds Cardiac exam, Rhythm is regular.. No murmurs, rubs or gallops. Abdominal exam reveals normal bowel sounds, soft non tender, no masses Extremities are nonedematous and both pedal pulses are present Neurologic exam is alert and oriented, no focal loss of strength or sensation no nystagmus was noted Skin is without bruises or rashes Psychologically is with history of anxiety Results & Data Results & Data Vital Signs (Past 12 Hours) Vital Signs Temp Pulse Resp BP Pulse Ox O2 Del Method 10/20/24 13:37 72 10/20/24 13:24 98 Room Air 10/20/24 12:35 97.9 F 69 18 125/77 96 Room Air Code Status & VTE Plan VTE Prophylaxis Plan VTE Prophylaxis will be ordered: Yes PG Care Time/CCT Total # of Minutes Spent Total Time Spent with Patient: Total time spent is greater than 50% in coordination of care (as documented) at patient's floor/unit and/or counseling patient: Coding Level of Care Code 04725 INT INP/OBS CARE 3/75MIN Diagnoses Benign essential hypertension I10 Depression F32.9
--- NOTE | 2024-10-20 14:33 | XRay Report ---
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 No effusion, consolidation, or pneumothorax. IMPRESSION: No acute findings. ACT 112: Negative or not required by law. Electronically signed by: Moises Pang M.D. 10/20/2024 2:31 PM
[2024-10-20 15:00] LABS: Appearance Urine Clear (Clear); Bacteria Urine Automated 4+ (None Seen); Bilirubin Urine Negative (Negative); Blood Urine Negative (Negative); Cast Urine Automated 0-2 /lpf (0-2); Color Urine Yellow; Epithelial Cell Urine Auto 0-2 /hpf (0-2); Glucose Urine UA Negative (Negative); Ketones Urine Negative (Negative); Leukocyte Esterase Urine 3+ (Negative); Nitrite Urine Negative (Negative); Protein Urine Negative (Negative); RBC Urine Automated 0-2 /hpf (0-2); Specific Gravity Urine 1.007 (1.000-1.030); Urobilinogen Urine Negative (Negative); WBC Urine Automated >50 /hpf (0-5)
[2024-10-20] MEDS ORDERED: hydrALAZINE HCL 20 MG/ML VIAL IV PRN (15:02)
[2024-10-20] MEDS: OPTIRAY 320 125ml IV ONE (15:23)
--- NOTE | 2024-10-20 15:53 | CT Scan Report ---
CT angio head w con CLINICAL HISTORY: 79 years-old Female with h/o aneurysm assoc with vertigo. Acute vertigo COMPARISON STUDY: Head CT of same day, CTA head 07/26/2023, MRA of the head 08/28/2012 TECHNIQUE: Following the IV administration of 118 cc of Optiray, CT angiogram of the brain was perfor med from the skull base to the vertex. Images are reviewed in the axial, sagittal, and coronal planes . 3-D MIPS images are created and assessed. IV contrast was administered without complication. All me asurements were obtained according to NASCET criteria. A dose lowering technique was utilized adherin g to the principles of ALARA. CT DOSE: 139.33 mGy.cm FINDINGS: CT BRAIN: Dictated separately. Involutional changes with chronic microvascular ischemic disease. Basilar tip an eurysm coils limits study. Chronic appearing cerebellar lacunar infarcts. CT ANGIOGRAM OF THE BRAIN: The imaged bilateral internal carotid arteries are patent. The bilateral anterior and middle cerebral arteries are also patent. Calcified plaque with high-grade stenosis within the mid basilar artery is unchanged on image 82 series 3. Suboptimal visualization of the posterior cerebral arteries secondar y to artifact from the aneurysm coils. The visualized portions appear patent. There is no additional aneurysm, high-grade stenosis, or proximal branch occlusion identified. Dural sinuses appear patent. IMPRESSION: 1. Unchanged CTA of the head compared to the 07/26/2023 study without acute arterial occlusion or high -grade stenosis. 2. Stable findings as above. ACT 112: Negative or not required by law. The above report was generated using voice recognition software. It may contain grammatical, syntax o r spelling errors. Electronically signed by: Yon King M.D. 10/20/2024 3:52 PM
[2024-10-20] MEDS ORDERED: ALUMINUM/MAGNESIUM SUSP 30 ML UDC PO PRN (16:20)
[2024-10-20] MEDS ORDERED: ONDANSETRON INJ 2 MG/ML 2 ML VIAL IV PRN (16:20)
[2024-10-20] MEDS ORDERED: ACETAMINOPHEN 500 MG TAB PO PRN (16:20)
[2024-10-20] MEDS: SCOPOLAMINE 1 MG/72 HR TDSY PATCH TD SCH (16:55)
[2024-10-20] MEDS: CHECK SCOPOLAMINE PATCH PLACEMENT SCH (16:56)
[2024-10-20 17:31] LABS: Folate (Folic Acid),Ser orPlas 16.72 ng/ml (>5.38)
[2024-10-20] MEDS: buPROPion SR 150 MG TABCR PO SCH (20:06)
[2024-10-20] MEDS ORDERED: Nursing to Pharmacy Communication SCH (20:15)
--- OUTSIDE RECORDS SUMMARY | 2024-10-20 20:26 | External Medical Summary | Continuity of Care Document ---
Author Name Unknown Organization [facility] [address] Address [address] [place], [place] [id number] Care Team Providers Care Switchboard Inspector Name Role Phone Sanjuana Cha Primary Care Physician [id number] [phone] Date(s): 07/31/24 - 07/31/24 [facility] [address] [facility] [address] [facility] [facility] [address] [place], [phone] Discharge Disposition: Home or Self Care Attending Physician: MD Cha Madhavi Referring Physician: MD Cha Madhavi Allergies, Adverse Reactions, Alerts Substance Criticality Severity Reaction Reaction Severity Status amoxicillin vomiting Active albuterol Active Epidural Single Shot with Lidocaine itchy Active Immunizations Given and Recorded Vaccine Date Status Refusal Reason pneumococcal 13-valent vaccine 06/06/24 Recorded pneumococcal 13-valent vaccine 06/13/14 Given influenza virus vaccine, inactivated 05/17/23 Give n influenza virus vaccine, inactivated 05/19/21 Give n influenza virus vaccine, inactivated 04/21/19 Give n influenza virus vaccine, inactivated 10/15/18 Give n influenza virus vaccine, inactivated 05/17/16 Give n influenza virus vaccine, inactivated 06/13/14 Give n influenza virus vaccine, inactivated 03/26/13 Give n SARS-CoV-2 (COVID-19) mRNA-1273 vaccine 01/13/21 R ecorded tetanus toxoids-diphtheria, Td (Adult) 04/21/19 Gi rudy pneumococcal 23-valent vaccine 05/17/16 Given pneumococcal 23-valent vaccine 07/09/06 Recorded pneumococcal 23-valent vaccine 1 05/08/03 Recorded tetanus/diphtheria/pertuss, acel (Tdap) 10/22/08 R ecorded tetanus/diphtheria/pertuss, acel (Tdap) 2 02/21/08 Recorded hepatitis B adult vaccine 3 12/14/99 Recorded hepatitis B adult vaccine 4 07/27/99 Recorded hepatitis B adult vaccine 5 06/28/99 Recorded 1Result Comment: 2021-01-16: Historical information-source unspecified 2Result Comment: 2021-01-16: Historical information-source unspecified 3Result Comment: 2021-01-16: Historical information-source unspecified 4Result Comment: 2021-01-16: Historical information-source unspecified 5Result Comment: 2021-01-16: Historical information-source unspecified Medications Actonel 150 mg oral tablet Start: 12/14/22 10:13:00 AM EDT, 1 tab, PO, [id number], Disp# 12 tab, Refills: 3, Pharmacy: [facility] Start Date: 12/14/22 Stop Date: 12/09/23 Status: Ordered BuPROPion (Eqv-Wellbutrin SR) 150 mg/12 hours oral tablet, extended release Start: 02/18/24 4:42:00 PM EDT, 1 tab, PO, bid, Disp# 180 tab, Refills: 3, [facility] Start Date: 02/18/24 Status: Ordered busPIRone 5 mg oral tablet Start: 07/01/24 10:23:00 AM EST, 1 tab, PO, tid, Disp# 270 tab, Refills: 3, Pharmacy: [facility]/pharmacy #[id number] Start Date: 07/01/24 Status: Ordered hydrochlorothiazide-lisinopril 12.5 mg-20 mg oral tablet Start: 05/05/24 12:43:00 PM EDT, 1 tab, PO, Daily, Disp# 90 tab, Refills: 3, Pharmacy: [facility]/pharmacy#[id number] Start Date: 05/05/24 Status: Ordered meclizine 25 mg oral tablet Start: 12/05/19 10:55:00 AM EDT, 1 tab, PO, tid, Disp# 30 tab, Refills: 5, PRN: as needed for dizziness, Pharmacy: [facility]/pharmacy #[id number] Start Date: 12/05/19 Status: Ordered MetFORMIN (Eqv-Glucophage XR) 500 mg oral tablet, extended release Start: 09/26/23 1:40:00 PM EDT, 1 tab, PO, Daily, Disp# 90 tab, Refills: 3, Pharmacy: [facility] Start Date: 09/26/23 Status: Ordered omeprazole 40 mg oral delayed release capsule Start: 06/26/23 9:31:00 AM EST, 1 cap, PO, Daily, Disp# 90 cap, Refills: 2, Pharmacy: [facility] Start Date: 06/26/23 Stop Date: 03/22/24 Status: Ordered pravastatin 80 mg oral tablet Start: 02/21/24 10:07:00 AM EDT, 1 tab, PO, Daily Start Date: 02/21/24 Status: Ordered traZODone 100 mg oral tablet Start: 07/24/24 12:07:00 PM EST, 1.5 tab, PO, qhs, Disp# 45 tab, X 30 day, Refills: 5, Stop: 01/21/2512:07:00 PM EDT, Pharmacy: [facility]/pharmacy #[id number] Start Date: 07/24/24 Stop Date: 01/20/25 Status: Ordered Vitamin D3 1000 intl units oral tablet Start: 04/21/19 11:14:00 AM EDT, 1 tab, PO, Daily Start Date: 04/21/19 Status: Ordered Problem List Condition Confirmation Course Effective Dates Status H ealth Status Informant Abnormal gait Confirmed Active Allergic rhinitis Confirmed Active Anxiety Confirmed Active Chronic throat clearing Confirmed Active Diastolic dysfunction 1 Confirmed Active Biceps tendinopathy Confirmed Active Sleep disturbance Confirmed Active Watering of eye Confirmed Active Abnormal CBC Confirmed Active Generalized anxiety disorder Confirmed Active GERD Confirmed Active Gout Confirmed Active Hyperlipidemia Confirmed Active Hypertension Confirmed Active Late, effect, cerebrovascular disease Confirmed Active Lumbar spinal stenosis Confirmed Active COPD, mild Confirmed Active MCI (mild cognitive impairment) Confirmed Active Major depressive disorder, single episode, mild Confirmed 06/08/22 Active Cervical pain Confirmed Active Obstructive sleep apnea 2 Confirmed Active 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 returned her cpap to [facility] february 2016 Procedures Procedure Date Related Diagnosis Body Site Status Mammogram 1 05/15/22 Completed X-ray of right shoulder 2 07/28/19 Completed DEXA - dual energy X-ray absorptiometry 3 06/16/19 Completed History of hip surgery 4 03/16/19 Completed Left bipolar hip prosthesis 03/15/19 Completed Endoscopy 5 11/06/18 Completed Esophagogastroduodenoscopy 6 11/06/18 Completed Diabetic retinal eye exam 7 11/03/18 Completed Diagnostic radiography of lali mbar spine (procedure) 01/05/18 Completed Skeletal X-ray of pelvis and hip 8 01/05/18 Completed X-ray tomography of lumbar spine 9 01/05/18 Completed Diabetic retinal eye exam 10 09/07/17 Completed Colonoscopy 11, 12 03/08/17 Comple vitor COLONOSCOPY AND BIOPSY 13 03/08/17 Completed Esophagogastroduodenoscopy (procedure) 01/30/[address] of abdomen and pelvis 14 01/19/17 Completed No history of retinopathy in past year 15 08/30/16 Completed Mammogram - screening 16 06/12/16 Completed bilateral radiofrequency economic development coordinator led denervation of the sacroiliac joints 01/14/16 Completed Destruction by neurolytic ag ent, paravertebral facet joint nerve(s), with imaging guidance (fluoroscopy or CT); lumbar or sacral, each additional facet joint (List separately in addition to code for primary procedure) 01/14/16 Completed Destruction by neurolytic ag ent, paravertebral facet joint nerve(s), with imaging guidance (fluoroscopy or CT); lumbar or sacral, single facet joint 01/14/16 Completed Elbow X-ray 17 10/10/14 Completed Hand X-ray 18 10/10/14 Completed Plain X-ray of wrist normal 19 10/10/14 Completed Shoulder X-ray 20 10/10/14 Complet ed PFT - Pulmonary function tests 21 06/24/14 Completed Brain aneurysm - embolization 2012 Completed spinal fusion - 2004, 2010 2010 Completed Fusion of 4 Fingers Bilateral hands 2009 Completed knee replacement x2 2004 Compl eted Rotator cuff repair 2000 Compl eted Tubal ligation 1979 Completed Sacroiliac 22 Completed 1Impression: There is no mammographic evidence of malignancy. A 1 year screening mammogram is recommended. 21. No acute fracture 2. Moderate osteoarthritis of the right acromioclavicular joint. Mild to moderate osteoarthritis ofthe right glenohumeral joint. 3. Suspected mild calcific tendinitis of the right rotator cuff. 3scanned into chart 4left 5The Z-line was irregular and was found 38 cm from the insisors. Biopsies were taken with a cold forceps for histology. Estimated blood loss was minimll. A 2 cm hiatal hernia was present. Abnormal motility was noted in the espohagus. The distal esophagus/lower esophageal sphincter is open. Mid esophagus mucosal normal buty biopsied to rule out eosinophilic esophagitis. Stomach normal. Duodenum examined was normal. Exam otherwise without abnormality. 6EGD irregular Z line bx, 2 cm HH, presbyesophagus, mid esophagus normal but bx 7Impression No diabetic retinopathy at this time 1 month F/U recommended 8No acute fracture within the pelvis or hips. 91. No acute lumbar spine fracture or subluxation 2. No significant change in appearance of the lumbar spine status post L1-2-L4 bilateral pedicle screw fusion and multilevel discectomy. 3. Severe degeneratie disc disease at L1-L2. 10No diabetic retinopathy at this time. Return annually for dilated exam. Preformed by Stacy Mata, MARTA 11The entire examined colon is normal. The examined portion of the ileum was normal, biopsied. The entrie examined colon is normal, biopsied. The distal rectum and anal verge are normal on retroflexionview. 12Pathology results: All biopsies unremarkable Repeat in 5 years. 13all biopsies benign see report 14Impression: 1. No evidence of bowel obstruction, no evidence of free air. 2. Mild colonic wall thickening, most pronounced in the left colon. Findings are indicative of a nonspecific colitis. 15Candace Adolfo White - return annually for dilated exam. 16There is no mammographic evidence of malignancy. A 1 year screening mammogram is recommended. 17Soft tissue swelling and osteopenia. There is no radiographic evidence of acute fracture in the right elbow. 18Generalized osteopenia noting postoperative and degenerative changes in the right hand as above. There is no radiographic evidence of fracture. Soft tissue swelling is present around the wrist. 19Generalized osteopenia. There is no radiographic evidence of fracture in the right wrist. Soft tissue swelling is present around the wrist. 20Osteopenia and mild degenerative changes as above. There is no radiographic evidence of fracture ordislocation in the right shoulder. 21The spirometry reveals mild obstruction with no change in the FEV1 with the use of albuterol. Lung volumes suggest airtrapping and a diffusing capacity, when corrected for alveolar volume is normal 22B/L RADIOFREQUENCY COOLED DENERVATION PF SACROILLIAC JOINTS Results Laboratory List Name Date Complete Blood Count w Differential (CBC ,DIFFH) 07/31/24 Comprehensive Metabolic Panel (COMP META B PANEL) 07/31/24 Hemoglobin A1C (HEMOGLOBIN, A1C) 07/31/24 Lipid Profile (LIPOPROTEINS) 07/31/24 Microalbumin, Urine, Random (MICROALBUMI N, RD UR) 07/31/24 Thyroid Stimulating Hormone (TSH) 5 Most recent to oldest [Reference Range]: 1 eGFR CKD-EPI [>60 mL/min/1.73 m2] 70 mL/ min/1.73 m2 1 (07/31/24 8:51 AM) Estimated Average Glucose 108 mg/dL 2 (07/31/24 8:51 AM) Non-HDL 95 mg/dL 3 (07/31/24 8:51 AM) Estimated CrCl 51.43 mL/min (07/31/24 9:28 AM) MPV [9.0-12.2 fL] 9.9 fL (07/31/24 8:51 AM) Immature Gran% 0.7 % (07/31/24 8:51 AM) Neut% 48.8 % (07/31/24 8:51 AM) Lymph% 37.2 % (07/31/24 8:51 AM) [place]% 11.2 % (07/31/24 8:51 AM) Baso% 0.9 % (07/31/24 8:51 AM) Eos% 1.2 % (07/31/24 8:51 AM) Immat Gran, Abs [0-0.4 K/uL] 0.03 K/uL (07/31/24 8:51 AM) Neut, Abs [2.0-7.7 K/uL] 2.10 K/uL (07/31/24 8:51 AM) Lymph, Abs [1.0-3.4 K/uL] 1.60 K/uL (07/31/24 8:51 AM) [place], Abs [0-1.0 K/uL] 0.48 K/uL (07/31/24 8:51 AM) Baso, Abs [0-0.1 K/uL] 0.04 K/uL (07/31/24 8:51 AM) Eos, Abs [0-0.5 K/uL] 0.05 K/uL (07/31/24 8:51 AM) Type of Diff: AUTO *Unknown* (07/31/24 8:51 AM) RDW [11.5-14.2 %] 14.0 % (07/31/24 8:51 AM) Micro Alb (u) [<2.00 mg/dL] REQUEST CRED ITED mg/dL 4 (07/31/24 8:51 AM) Anion Gap [5-14 mmol/L] 3 mmol/L *LOW* (07/31/24 8:51 AM) Alb [3.5-5.0 g/dL] 3.9 g/dL (07/31/24 8:51 AM) Alk Phos [38-126 unit/L] 83 unit/L (07/31/24 8:51 AM) ALT [<35 unit/L] 18 unit/L (07/31/24 8:51 AM) AST [15-46 unit/L] 22 unit/L (07/31/24 8:51 AM) BUN [7-20 mg/dL] 29 mg/dL *HI* (07/31/24 8:51 AM) Ca [8.4-10.2 mg/dL] 8.9 mg/dL (07/31/24 8:51 AM) Chol/HDL 3 (07/31/24 8:51 AM) Chol [125-200 mg/dL] 157 mg/dL (07/31/24 8:51 AM) Cl- [96-107 mmol/L] 111 mmol/L *HI* (07/31/24 8:51 AM) HCO3 [22-30 mmol/L] 24 mmol/L (07/31/24 8:51 AM) Cret [0.60-1.00 mg/dL] 0.86 mg/dL (07/31/24 8:51 AM) HbA1c [4.0-6.0 %] 5.4 % (07/31/24 8:51 AM) Glu [74-106 mg/dL] 106 mg/dL (07/31/24 8:51 AM) Hct [35-44 %] 37.8 % (07/31/24 8:51 AM) HDL [>35 mg/dL] 62 mg/dL (07/31/24 8:51 AM) Hgb [11.7-15.0 g/dL] 12.4 g/dL (07/31/24 8:51 AM) K [3.5-5.1 mmol/L] 4.3 mmol/L (07/31/24 8:51 AM) LDL Chol, Calculated [50-130 mg/dL] 84 m g/dL (07/31/24 8:51 AM) Micro Alb Ratio [<20 ug/mg cret] REQUEST CREDITED ug/mg cret 5 (07/31/24 8:51 AM) MCH [28-33 pg] 32.4 pg (07/31/24 8:51 AM) MCHC [32-36 g/dL] 32.8 g/dL (07/31/24 8:51 AM) MCV [81-96 fL] 98.7 fL *HI* (07/31/24 8:51 AM) Na [137-145 mmol/L] 138 mmol/L (07/31/24 8:51 AM) Plts [150-350 K/uL] 243 K/uL (07/31/24 8:51 AM) RBC [3.90-5.00 M/uL] 3.83 M/uL *LOW* (07/31/24 8:51 AM) T Bili [0.2-1.3 mg/dL] 0.5 mg/dL (07/31/24 8:51 AM) Prot [6.3-8.2 g/dL] 7.0 g/dL (07/31/24 8:51 AM) TG [<200 mg/dL] 56 mg/dL (07/31/24 8:51 AM) TSH [0.47-4.68 uIU/mL] 1.12 uIU/mL 6 (07/31/24 8:51 AM) Creat (u) REQUEST CREDITED mg/ dL 7 (07/31/24 8:51 AM) WBC [4.0-10.4 K/uL] 4.30 K/uL (07/31/24 8:51 AM) 1Result Comment: Testing Performed By: Dept of Pathology [facility] [address], [address] [facility], [place] [address] 2Result Comment: Testing Performed By: Dept of Pathology [facility] [address], [address] [facility] [place] [address] 3Result Comment: Testing Performed By: [facility], [address] [facility], [place] [address] 4Result Comment: DUPLICATE REQUEST 5Result Comment: DUPLICATE REQUEST 6Result Comment: Testing Performed By: Dept of Pathology [facility] [address], [address], [place] [address] 7Result Comment: DUPLICATE REQUEST Social History Social History Type Response Tobacco 1 Smoking Status Never smoked cigaret owen Sex Female Sex Representation Female (finding) 1half ppd. started at age 1mths ago. smoked for age 21yrs till age 64. Patient Care team information Care Team Personnel Name: Luca Erazo MD, Mia Position: Resident Member Role: Lifetime Relationship Address: [address] [place] [address] [place] Name: MD Semaj, Sanjuana Position: Physician - Family Med Member Role: Primary Care Provider Address: [address] [place] [address] [place] Care Team Related Persons Name: MAXIM MOSER Name: MAXIM MOSER
--- OUTSIDE RECORDS SUMMARY | 2024-10-20 20:26 | External Medical Summary | Continuity of Care Document ---
Author Name Unknown Organization [facility] [id number] [address] [place] [phone] Care Team Providers Care Sheltered Workshop Executive Director Name Role Phone Sanjuana Cha Primary Care Physician [phone] Encounter [facility] [id number] Date(s): 07/24/24 - 07/24/24 [facility] [address] [address] [phone] Encounter Diagnosis Hypertension(Discharge Diagnosis) - 07/24/24 Major depressive disorder, single episode, mild(Discharge Diagnosis) - 07/24/24 COPD, mild(Discharge Diagnosis) - 07/24/24 Other secondary pulmonary hypertension(Discharge Diagnosis) - 07/24/24 Hyperlipidemia(Discharge Diagnosis) - 07/24/24 Anxiety(Discharge Diagnosis) - 07/24/24 Type 2 diabetes mellitus with neuropathy(Discharge Diagnosis) - 07/24/24 Sleep disturbance(Discharge Diagnosis) - 07/24/24 Discharge Disposition: Home or Self Care Attending Physician: MD Cha Madhavi Allergies, Adverse Reactions, Alerts Substance Criticality Severity Reaction Reaction Severity Status amoxicillin vomiting Active albuterol Active Epidural Single Shot with Lidocaine itchy Active Assessment and Plan Extracted from: Title:Office Visit Note Author:MD Semaj, Migel i Date:07/24/24 1. Type 2 diabetes mellitus with neuropathy Chronic stable goal A1c below 7.5 Data- didn't do blood work done for this visit Plan -continue metformin at current dosage. Had eye exam done last week -will follow-up on the report Continue lisinopril. 2. Hypertension Chronic stable goal blood pressure less than 125/80 Data-renal function and electrolytes from labs done during previous visits have been normal. Recheck BMP pending Plan-continue HCTZ lisinopril at current dosage. May need to cut the dose considering that her blood pressure is running on the lower side. Did not report any dizziness. 3. Hyperlipidemia Chronic stable goal LDL 70 Data -pending labs Plan-continue statin 4. Major depressive disorder, single episode, mild Chronic stable goal maintain remission Data - PHQ2-1 Plan-continue Wellbutrin at current dosage 5. Anxiety Chronic stable goal maintain improved control of symptoms Data none Plan-buspirone 3 times daily. She does forget to take it sometimes 6. COPD, mild Chronic stable goal maintain improved symptoms Data none Plan-asymptomatic. 7. Other secondary pulmonary hypertension chronic stable goal - treat underlying cause data - none plan - asymptomatic. could consider recheck echo but considering weight loss and no worsening of symptoms - will monitor 8. Sleep disturbance chronic unstable goal - improve symptoms data - none plan - increase trazodone dose to 150mgs. shingles vaccine - declined. f/u 4mths Immunizations Given and Recorded Vaccine Date Status [...] 12/14/22 10:13:00 AM EDT, 1 tab, PO, [id number], Disp# 12 tab, Refills: 3, Pharmacy: [facility] Start Date: 12/14/22 Stop Date: 12/09/23 Status: Ordered BuPROPion (Eqv-Wellbutrin SR) 150 mg/12 hours oral tablet, extended release Start: 02/18/24 4:42:00 PM EDT, 1 tab, PO, bid, Disp# 180 tab, Refills: 3, Pharmacy: [facility] Start Date: 02/18/24 Status: Ordered busPIRone 5 mg oral tablet Start: 07/01/24 10:23:00 AM EST, 1 tab, PO, tid, Disp# 270 tab, Refills: 3, Pharmacy: [facility]/pharmacy #[id number] Start Date: 07/01/24 Status: Ordered hydrochlorothiazide-lisinopril 12.5 mg-20 mg oral tablet Start: 05/05/24 12:43:00 PM EDT, 1 tab, PO, Daily, Disp# 90 tab, Refills: 3, Pharmacy: [facility]/pharmacy#[id number] Start Date: 05/05/24 Status: Ordered meclizine 25 mg oral tablet Start: 12/05/19 10:55:00 AM EDT, 1 tab, PO, tid, Disp# 30 tab, Refills: 5, PRN: as needed for dizziness, Pharmacy: [facility]/pharmacy #[id number] Start Date: 12/05/19 Status: Ordered MetFORMIN (Eqv-Glucophage XR) 500 mg oral tablet, extended release Start: 09/26/23 1:40:00 PM EDT, 1 tab, PO, Daily, Disp# 90 tab, Refills: 3, Pharmacy: [facility] Start Date: 09/26/23 Status: Ordered omeprazole 40 mg oral delayed release capsule Start: 06/26/23 9:31:00 AM EST, 1 cap, PO, Daily, Disp# 90 cap, Refills: 2, Pharmacy: [facility] Start Date: 06/26/23 Stop Date: 03/22/24 Status: Ordered pravastatin 80 mg oral tablet Start: 02/21/24 10:07:00 AM EDT, 1 tab, PO, Daily Start Date: 02/21/24 Status: Ordered traZODone 100 mg oral tablet Start: 07/24/24 12:07:00 PM EST, 1.5 tab, PO, qhs, Disp# 45 tab, X 30 day, Refills: 5, Stop: 01/21/2512:07:00 PM EDT, Pharmacy: [facility]/pharmacy #[id number] Start Date: 07/24/24 Stop Date: 01/20/25 Status: Ordered Vitamin D3 1000 intl units oral tablet Start: 04/21/19 11:14:00 AM EDT, 1 tab, PO, Daily Start Date: 04/21/19 Status: Ordered Mental Status 07/24/24 Barriers to Learning one year None evide nt Mandatory Health Literacy Documentation Yes Health Literacy Communication Barriers N ever Primary Language Burkinan Problem List Condition Confirmation Course Effective Dates [...] Confirmed Active Weight disorder Confirmed Active 1grade - February 2016 2not using cpap. returned her cpap to [facility] - February 2016 Diagnosis Diagnosis Type Effective Dates Health Status Clinical Service Informant Hypertension Discharge Diagnosis 07/24/24 Non-Specified Major depressive disorder, single episode, mild Discharge Diagnosis 07/24/24 Non-Specified Anxiety Discharge Diagnosis 07/24/24 Non-Specified COPD, mild Discharge Diagnosis 07/24/24 Non-Specified Other secondary pulmonary hypertension Discharge Diagnosis 07/24/24 Non-Specified Sleep disturbance Discharge Diagnosis 07/24/24 Non-Specified Hyperlipidemia Discharge Diagnosis 07/24/24 Non-Specified Type 2 diabetes mellitus with neuropathy Discharge Diagnosis 07/24/24 Non-Specified Procedures Procedure Date Related Diagnosis Body Site [...] - screening 16 06/12/16 Completed bilateral radiofrequency academic success coordinator led denervation of the sacroiliac joints [...] Bilateral hands 2009 Completed knee replacement x2 2005 Compl eted Rotator cuff repair 2000 Compl [...] 22B/L RADIOFREQUENCY COOLED DENERVATION PF SACROILLIAC JOINTS Vital Signs Most recent to oldest [Reference Range]: 1 Temperature [36.5-37.9 DegC] 37 DegC (07/24/24 11:39 AM) Heart Rate 67 bpm (07/24/24 11:39 AM) Respiratory Rate 18 br/min (07/24/24 11:39 AM) Blood Pressure 118/78mmHg (07/24/24 11:39 AM) Cuff Pulse Pressure 40 mmHg (07/24/24 11:39 AM) Social History Social History Type Response Tobacco 1 Smoking Status Never smoked cigaret owen Sex Female Sex Representation Female (finding) 1half ppd. started at age 1mths ago. smoked for age 21yrs till age 64. FCM Outpt Note * MD Semaj, Sanjuana: PERFORM Event Display: FCM Outpt Note Authored Date: Chief Complaint F/U for chonic conditions, needs a refill on medication History of Present Illness Here for routine f/u No new concerns. Sleep is disrupted - gets up 2-3 times at night. often wakes up at 3am and not able to fall back asleep. taking trazodone as directed. Mood - stable. still has rumination - mostly at night. staying busy during the day taking wellbutrin and buspar. GERD - symptoms stable on omeprazole. HTN - taking meds as directed COPD - no shortness of breath or cough DM - didn't have labs done. will get them done tomorrow Physical Exam Vitals & Measurements T: 37 °C HR: 67 (Monitored) RR: 18 BP: 118/78 SpO2: 97% PHQ2 Data (Data Documented on:07/24/2024 11:37) Emotional health assessment NEGATIVE comfortable RRR CTA mild left ankle edema. Assessment/Plan 1. Type 2 diabetes mellitus with neuropathy Chronic stable goal A1c below 7.5 Data- didn't do blood work done for this visit Plan -continue metformin at current dosage. Had eye exam done last week -will follow-up on the report Continue lisinopril. 2. Hypertension Chronic stable goal blood pressure less than 125/80 Data-renal function and electrolytes from labs done during previous visits have been normal. Recheck BMP pending Plan-continue HCTZ lisinopril at current dosage. May need to cut the dose considering that her blood pressure is running on the lower side. Did not report any dizziness. 3. Hyperlipidemia Chronic stable goal LDL 70 Data -pending labs Plan-continue statin 4. Major depressive disorder, single episode, mild Chronic stable goal maintain remission Data - PHQ2-1 Plan-continue Wellbutrin at current dosage 5. Anxiety Chronic stable goal maintain improved control of symptoms Data none Plan-buspirone 3 times daily. She does forget to take it sometimes 6. COPD, mild Chronic stable goal maintain improved symptoms Data none Plan-asymptomatic. 7. Other secondary pulmonary hypertension chronic stable goal - treat underlying cause data - none plan - asymptomatic. could consider recheck echo but considering weight loss and no worsening of symptoms - will monitor 8. Sleep disturbance chronic unstable goal - improve symptoms data - none plan - increase trazodone dose to 150mgs. shingles vaccine - declined. f/u 4mths Problem List/Past Medical History Ongoing Abnormal CBC Abnormal gait Allergic rhinitis Anxiety Biceps tendinopathy Cervical pain Chronic throat clearing COPD, mild Diastolic dysfunction DJD of right AC (acromioclavicular) joint Generalized anxiety disorder GERD Gout Hyperlipidemia Hypertension Late, effect, cerebrovascular disease Left shoulder pain Lumbar spinal stenosis Major depressive disorder, single episode, mild MCI (mild cognitive impairment) Obstructive sleep apnea Osteoporosis Other secondary pulmonary hypertension Polyneuropathy Post laminectomy syndrome Presbyesophagus Right shoulder pain SI (sacroiliac) joint dysfunction Sleep disturbance Tobacco abuse Type 2 diabetes mellitus with neuropathy Vertebral fracture Vertigo Vitamin D insufficiency Watering of eye Weight disorder Resolved Acute onset of severe vertigo Altered mental status, unspecified Aneurysm-basilar Back pain Foot pain, left History of operative procedure on lumbar spinal structure Left sided sciatica Metatarsal fracture Neck pain Orthostatic hypotension Recurrent cough S/p left hip fracture Procedure/Surgical History •Mammogram| Service Date: 05/15/2022•X-ray of right shoulder| Service Date: 07/28/2019•DEXA -dual energy X-ray absorptiometry| Service Date: 06/16/2019•History of hip surgery| Service Date: 03/16/2019•Left bipolar hip prosthesis| Service Date: 03/15/2019•Endoscopy| Service Date: 019•Esophagogastroduodenoscopy| Service Date: 11/06/2018•Diabetic retinal eye exam| Service Date: 11/03/2018•Skeletal X-ray of pelvis and hip| Service Date: 01/05/2018•X-ray tomography of lumbar spine| Service Date: 01/05/2018•Diagnostic radiography of lumbar spine (procedure)| Service Date: 01/05/2018•Diabetic retinal eye exam| Service Date: 09/07/2017•COLONOSCOPY AND BIOPSY| Service Date: 03/08/2017•Colonoscopy| Service Date: 03/08/2017•Esophagogastroduodenoscopy (procedure)| Service Date: 01/30/2017•CT of abdomen and pelvis| Service Date: 01/19/2017•No history of retinopathy in past year| Service Date: 08/30/2016•Mammogram - screening| Service Date: 06/12/2016•bilateral radiofrequency cooled denervation of the sacroiliac joints| Service Date: 01/14/2016•Destruction by neurolytic agent, paravertebral facet joint nerve(s), with imaging guidance (fluoroscopy or CT); lumbar or sacral, single facet joint| Service Date: 01/14/2016•Destruction by neurolytic agent, paravertebral facet joint nerve(s), with imaging guidance (fluoroscopy or CT); lumbar or sacral, each additional facet joint (List separately in addition to code for primary procedure)| Service Date: 01/14/2016•Plain X-ray of wrist normal| Service Date: 10/10/2014•Shoulder X- ray| Service Date: 10/10/2014•Hand X-ray| Service Date: 10/10/2014•Elbow X- ray| Service Date: 10/10/2014•PFT- Pulmonary function tests| Service Date: 06/24/2014•Brain aneurysm - embolization| Service Date:2012•spinal fusion - 2004, 2010| Service Date: 2010•Fusion of 4 Fingers Bilateral hands| Service Date: 2009•knee replacement x2| Service Date: 2004•Rotator cuff repair| Service Date: 2000•Tubal ligation| Service Date: 1979•Sacroiliac Medications buPROPion(BuPROPion (Eqv-Wellbutrin SR) 150 mg/12 hours oral tablet, extended release), 1 tab, PO, bid busPIRone(busPIRone 5 mg oral tablet), 1 tab, PO, tid, 3 refills cholecalciferol(Vitamin D3 1000 intl units oral tablet), 1000 Int_Unit= 1 tab, PO, Daily hydrochlorothiazide-lisinopril(hydrochlorothiazide-lisinopril 12.5 mg-20 mg oral tablet), 1 tab, PO, Daily, 3 refills meclizine(meclizine 25 mg oral tablet), 25 mg= 1 tab, PO, tid, PRN, 5 refills metFORMIN(MetFORMIN (Eqv-Glucophage XR) 500 mg oral tablet, extended release), 1 tab, PO, Daily omeprazole(omeprazole 40 mg oral delayed release capsule), 40 mg= 1 cap, PO, Daily, 2 refills pravastatin(pravastatin 80 mg oral tablet), 80 mg= 1 tab, PO, Daily risedronate(Actonel 150 mg oral tablet), 150 mg= 1 tab, PO, [id number], 3 refills traZODone(traZODone 100 mg oral tablet), 150 mg= 1.5 tab, PO, qhs, 5 refills Allergies Epidural Single Shot with Lidocaine itchy albuterol amoxicillin vomiting Social History Smoking Status Never smoked cigarettes Alcohol - No Risk Use:Current Type:Wine Frequency:1-2 times per year Average drinks per episode in last year:1 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 Home/Environment - Comments: He in march son 18yrs ago. Other - Comments: declines colo, zostavax, mammogram has a pessary. goes to [facility] Tobacco - Low Risk - Comments: half ppd. started at age 1mths ago. smoked for age 21yrs till age 64. Family History Cholecystectomy: Sister. Diabetes: Mother and Sister. Gallbladder disease: Mother. Heart attack: Mother and Father. High Blood Pressure: Mother. Type II diabetes mellitus: Mother. Health Status Family Member(s) Family Member(s) Relationship: Mother, Name: Keke, Age: 80 Years, Cause: heart attack, DM Relationship: Father, Name: Yazan, Age: 70 Years, Cause: heart attack Immunizations Vaccine Date Status pneumococcal 13-valent vaccine 06/06/2024 Recorded influenza virus vaccine, inactivated 05/17/2023 Given influenza virus vaccine, inactivated 05/19/2021 Given SARS-CoV-2 (COVID-19) mRNA-1273 vaccine 01/13/2021 Recorded influenza virus vaccine, inactivated 04/21/2019 Given tetanus toxoids-diphtheria, Td (Adult) 04/21/2019 Given influenza virus vaccine, inactivated 10/15/2018 Given influenza virus vaccine, inactivated 05/17/2016 Given pneumococcal 23-valent vaccine 05/17/2016 Given influenza virus vaccine, inactivated 06/13/2014 Given pneumococcal 13-valent vaccine 06/13/2014 Given influenza virus vaccine, inactivated 2013 Given tetanus/diphtheria/pertuss, acel (Tdap) 10/22/2008 Recorded tetanus/diphtheria/pertuss, acel (Tdap) 02/21/2008 Recorded Comments : 2021-01-16: Historical information-source unspecified pneumococcal 23-valent vaccine 07/09/2006 Recorded pneumococcal 23-valent vaccine 05/08/2003 Recorded Comments : 2021-01-16: Historical information-source unspecified hepatitis B adult vaccine 12/14/1999 Recorded Comments : 2021-01-16: Historical information-source unspecified hepatitis B adult vaccine 07/27/1999 Recorded Comments : 2021-01-16: Historical information-source unspecified hepatitis B adult vaccine 06/28/1999 Recorded Comments : 2021-01-16: Historical information-source unspecified Recommendations Health Maintenance Pending (in the next year) OverDue Medicare Annual Wellness Visit due 06/08/23 and every 1 year Adult Influenza Vaccine due 01/07/24 and every 1 year Diabetic Eye Exam due 05/22/24 and every 366 day Due Adult COVID-19 Vaccination due 07/24/24 Unknown Frequency Adult Social Determinants of Health Screening due 07/24/24 Unknown Frequency Falls Plan of Care due 07/24/24 Unknown Frequency Shingles Vaccine due 07/24/24 One-time only Due In Future Diabetes Management A1c not due until 02/19/25 and every 366 day Body Mass Index not due until 02/21/25 and every 366 day Satisfied (in the past 1 year) Satisfied Body Mass Index on 02/21/24. Satisfied by KAIT Osorio Kyla Diabetes Management A1c on 02/19/24. Satisfied by Contributor_system, [id number] Diabetes Nephropathy Management on 02/19/24. Satisfied by Contributor_system, [id number] Lipid Screening on 02/19/24. Satisfied by Contributor_system, [id number] PHQ-9 After Positive PHQ-2 on 08/02/23. Satisfied by NIKITA Mcconnell Courtney D Electronic Signature on File Electronically Reviewed/Signed by: Sanjuana Cha MD Author Signature Dt/Tm:07/24/2024 12:34 PM Department of Family Medicine [place] Patient Care team information Care Team Personnel Name: Luca Erazo MD, [facility] Position: Resident Member Role: Lifetime Relationship Address: [address] [place] [address] Name: MD Cha Madhavi Position: Physician - Family Med Member Role: Primary Care Provider Address: [address] [place] [address] Care Team Related Persons Name: MAXIM MOSER Name: MAXIM MOSER"
--- OUTSIDE RECORDS SUMMARY | 2024-10-20 20:26 | External Medical Summary | Continuity of Care Document ---
Author Name Unknown Organization [facility] [address] Address [address] [place], [place] [id number] Care Team Providers Care Material Control Manager Name Role Phone Sanjuana Cha Primary Care Physician [phone] [facility] [id number] Date(s): 08/01/24 - 08/01/24 [facility] [address] [facility] [address], [facility] [[email or web address]] [address] [place], [place] [phone] Encounter Diagnosis Type 2 diabetes mellitus with diabetic neuropathy, unspecified(Final) - Essential (primary) hypertension(Final) - Hyperlipidemia, unspecified(Final) - Major depressive disorder, single episode, mild(Final) - Anxiety disorder, unspecified(Final) - Chronic obstructive pulmonary disease, unspecified(Final) - Other secondary pulmonary hypertension(Final) - Discharge Disposition: Home or Self Care Attending [...] 12/14/22 10:13:00 AM EDT, 1 tab, PO, [id number], Disp# 12 tab, Refills: 3, Pharmacy: [facility] Start Date: 12/14/22 Stop Date: 12/09/23 Status: Ordered BuPROPion (Eqv-Wellbutrin SR) 150 mg/12 hours oral tablet, extended release Start: 02/18/24 4:42:00 PM EDT, 1 tab, PO, bid, Disp# 180 tab, Refills: 3, [facility] Start Date: 02/18/24 Status: Ordered busPIRone 5 mg oral tablet Start: 07/01/24 10:23:00 AM EST, 1 tab, PO, tid, Disp# 270 tab, Refills: 3, Pharmacy: [facility]/pharmacy #[id number] Start Date: 07/01/24 Status: Ordered hydrochlorothiazide-lisinopril 12.5 mg-20 mg oral tablet Start: 05/05/24 12:43:00 PM EDT, 1 tab, PO, Daily, Disp# 90 tab, Refills: 3, Pharmacy: [facility]/pharmacy#[id number] Start Date: 05/05/24 Status: Ordered meclizine 25 mg oral tablet Start: 12/05/19 10:55:00 AM EDT, 1 tab, PO, tid, Disp# 30 tab, Refills: 5, PRN: as needed for dizziness, Pharmacy: [facility]/pharmacy #[id number] Start Date: 12/05/19 Status: Ordered MetFORMIN (Eqv-Glucophage XR) 500 mg oral tablet, extended release Start: 09/26/23 1:40:00 PM EDT, 1 tab, PO, Daily, Disp# 90 tab, Refills: 3, Pharmacy: [facility] Start Date: 09/26/23 Status: Ordered omeprazole 40 mg oral delayed release capsule Start: 06/26/23 9:31:00 AM EST, 1 cap, PO, Daily, Disp# 90 cap, Refills: 2, Pharmacy: [facility] Start Date: 06/26/23 Stop Date: 03/22/24 Status: Ordered pravastatin 80 mg oral tablet Start: 02/21/24 10:07:00 AM EDT, 1 tab, PO, Daily Start Date: 02/21/24 Status: Ordered traZODone 100 mg oral tablet Start: 07/24/24 12:07:00 PM EST, 1.5 tab, PO, qhs, Disp# 45 tab, X 30 day, Refills: 5, Stop: 01/21/2512:07:00 PM EDT, Pharmacy: [facility]/pharmacy #[id number] Start Date: 07/24/24 Stop Date: 01/20/25 [...] Weight disorder Confirmed Active 1grade 1 - February 2016 2not using cpap. returned her cpap to [facility] 3mild - February 2016 Procedures Procedure Date Related Diagnosis Body [...] - screening 16 06/12/16 Completed bilateral radiofrequency barbecue cook led denervation of the sacroiliac joints 01/14/16 [...] for dilated exam. Preformed by Stacy Mata, OD 11The entire examined colon is normal. The [...] SACROILLIAC JOINTS Results Laboratory List Name Date Microalbumin, Urine, Random (MICROALBUMI N, RD UR) 08/01/24 Most recent to oldest [Reference Range]: 1 Micro Alb (u) [<2.00 mg/dL] <1.20 mg/dL (08/01/24 9:55 AM) Micro Alb Ratio [<20 ug/mg cret] NOT RUTH CULATED ug/mg cret (08/01/24 9:55 AM) Creat (u) 79.10 mg/dL 1 (08/01/24 9:55 AM) 1Result Comment: Reference Range for Random Urine Not Established. Social History Social History Type Response Tobacco 1 Smoking Status Never smoked cigaret owen Sex Female Sex Representation Female (finding) 1half ppd. started at age 1mths ago. smoked for age 21yrs till age 64. Patient Care team information Care Team Personnel Name: Luca Erazo MD, Mia Position: Resident Member Role: Lifetime Relationship Address: [address] [place] [address] Name: MD Semaj, Sanjuana Position: Physician - Family Med Member Role: Primary Care Provider Address: [address] [place] [address] [place] Care Team Related Persons Name: MAXIM MOSER Name: MAXIM MOSER
[2024-10-20] MEDS ORDERED: LORazepam 1 MG TAB PO SCH (21:00)
[2024-10-20] MEDS: LORazepam 0.5 MG TAB PO PRN (21:16)
[2024-10-21 06:43] LABS: BUN Creatinine Ratio 18.2 (10-20); Creatinine Clr Calc Pharmacy 52.8 ml/min; Magnesium 1.7 mg/dl (1.7-2.4); Potassium 4.2 mmol/L (3.5-5.1)
[2024-10-21 06:58] LABS: Thyroid Stimulating Hormone 1.437 uIu/ml (0.300-4.500)
[2024-10-21] MEDS: CHOLECALCIFEROL 25 MCG (1000 UNITS) TAB PO SCH (07:45)
[2024-10-21] MEDS: buPROPion SR 150 MG TABCR PO SCH (07:45)
[2024-10-21 08:39] VITALS: O2SAT 96
[2024-10-21] MEDS: CIPROFLOXACIN 500 MG TAB PO SCH (10:40)
[2024-10-21 11:07] VITALS: BP 144/77; PULSE 60; RESP 18; TEMP 98.1
--- NOTE | 2024-10-21 11:25 | XCELERA ---
[id number]
--- NOTE | 2024-10-21 15:42 | Discharge Summary ---
Discharge Summary Date of Service October 21, 2024 Principal Dx & Hospital Course #1 = Principal Diagnosis (1) Vertigo: (2) Benign essential hypertension: (3) Depression: Plan 79-year-old female presents with syncope and collapse with out injury. No significant causes initially determined in the emergency department. This is a recurrence from July. 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 She has seen vestibular therapy in the past. In the past she has been on chronic daily meclizine but has not taken any as her prescription out for the last few weeks. Patient states that vertigo is initial presenting symptom with her aneurysm. Patient states that she is dizzy anytime she moves her head from [id number] looks left right or up and gets up from sitting position. She states that her dizziness is so profound that she cannot drive a car at this time she does have mild hyponatremia but it is 134. Initial cardiac rhythm is normal sinus #Syncope secondary to vertigo, improved with transdermal scopolamine and discontinuation of at bedtime trazodone echocardiogram did not show significant valvular heart disease or outflow tract disease. CT angiography of the brain without evidence of stenosis or aneurysms. Lyme disease is negative on presentation Patient was seen by physical and Occupational Therapy and cleared for discharge home. Patient will continue Transderm scopolamine patch and as she follows up with her primary care physician. She will continue to hold home trazodone and home lisinopril hydrochlorothiazide. Neck CTA performed in July did show no significant carotid artery stenosis but there was significant spinal disease with spinal stenosis C4-5-6 and T1. MRI is recommended at that time but with her cerebral artery coilng it is unclear whether patient can be safely MRI'd, MRI stated would need op report to be sure and not clear if this impacts her current condition #UTI POAamoxicillin #Hypertension. Patient's combination lisinopril/hydrochlorothiazide to be held at this time blood pressure has been stable #Depression patient's trazodone and BuSpar will be held at the time of discharge we will continue with her bupropion, recommend discussion with PCP regarding these medications #Prediabetes patient's metformin restarted at time of discharge Notes For Next Care Provider Patient agreed improvement with medication changes as listed above. Certainly her blood pressure may sneak back in. She is also found to have a E. coli UTI present on admission which in the past has been pansensitive with treating this with amoxicillin. Admission HPI Per Admitting Provider 79-year-old female presents emergency department with syncope she did strike her head. She has similar episode in July of this year where she was treated and released in the emergency department. She denies significant Presyncope symptoms warning signs. She has not taken any medications that directly impact her cardiac rhythm. There is no recent echocardiogram or Lyme test on her ch art. Patient's had previous aneurysmal treatment in her brain in 2012 and lumbar spinal surgeries in the past. In the emergency department initial evaluation did not reveal any significant laboratory dyscrasias CT head was unremarkable and EKG showed normal sinus rhythm. Discharge Exam Patient awake and alert symptoms have ceased usually they were reproducible just with lateral eye movements. She no longer. She is cleared by physical therapy and discharged to home Discharge Plan Discharge Items Patient Disposition: Home - Self-Care Reason For Visit: SYNCOPE Discharge Diagnosis: vertigo urinary tract infection Activity: Per Instructions section Activity Comment: be extra careful to avoid falls Non-emergency contact: Primary Care Provider Call non-emergency contact if: your symptoms worsen Follow-up/Referrals: Sanjuana Cha MD [Primary Care Provider] - Diet: Regular Addtl Attending Provider Instructions: please wear your transderm patch, change every 3 days for the next two weeks then use as needed after that I will give an Rx but you maybe able to get over the counter also you are given 3 days of treatment for a urinary tract infection Pending Studies at Discharge: Yes Studies:: the final urine culture results Stand-Alone Forms: My [facility] [employer], Smoking Cessation Medications and DC Order Prescriptions: New scopolamine base [Transderm-Scop] 1 mg over 3 days Patch 3 Day 1 patch transdermal Q72H Qty: 5 1RF amoxicillin 500 mg capsule 500 mg PO BID Qty: 6 0RF Continued omeprazole 20 mg capsule,delayed release(DR/EC) 40 mg PO DAILY bupropion HCl 150 mg tablet sustained-release 12 hr 150 mg PO BID pravastatin 40 mg tablet 80 mg PO HS acetaminophen [Tylenol Extra Strength] 500 mg Tablet 1,000 mg PO Q8H PRN (Reason: pain) Qty: 30 0RF Rx Instructions: otc unable to verify cholecalciferol (vitamin D3) [Vitamin D3] 1,000 unit (25 mcg) Tablet 1,000 unit PO QAM Qty: 30 0RF Rx Instructions: otc unable to verify metformin 500 mg Tablet 500 mg PO QAM Held trazodone 100 mg tablet 100 mg PO HS Hold Instructions: Provider's Order buspirone 5 mg tablet 5 mg PO TID Hold Instructions: Provider's Order lisinopril-hydrochlorothiazide 20-12.5 mg tablet 1 tab PO DAILY Hold Instructions: Provider's Order Discharge Orders: Discharge Order (Routine); Ordered 10/21/24 Ordered By: Francisco Bang Admission Data Admit Date/Time: 10/21/24 10:01 Attending Provider: Francisco Bang Admit Provider: Francisco Bang Primary Care Provider: Sanjuana Cha Other Providers: Francisco Bang Hospital Stay Data Consultations 10/20/24 14:18 ED Decision to Admit Stat Diagnostic Imagining Performed 10/20/24 12:54 CT head/brain wo con Stat 10/20/24 14:52 CTA head w con [CT angio head w con] Routine Pending Results Patient Have Any Pending Studies at Discharge: Yes Discharge Instructions Given to Patient (Per Discharging Provider) please wear your transderm patch, change every 3 days for the next two weeks then use as needed after that I will give an Rx but you maybe able to get over the counter also you are given 3 days of treatment for a urinary tract infection Total Time Total Time Spent Total Time Spent (In Minutes): It required greater than 30 minutes to prepare this patient for discharge. Coding Level of Care Code 63341 INP/OBS DISCH >30 MIN Diagnoses Vertigo R42 Benign essential hypertension I10 Depression F32.9
== END 2024-10-21 16:13 | disposition home or self-care (01) | DRG 149 ==
LOC: 2E 12:21 → ED 12:21 → 2E 15:44